=== PATIENT | female | born 1935 | race Caucasian/White ===

== ENCOUNTER 2021-01-15 22:20 | Emergency (ER) | payer MEDICARE, SELFPAY ==
[2021-01-15] VITALS (10 sets, daily range): BP systolic 133–154; BP diastolic 57–67; PULSE 80–94; RESP 13–22; TEMP 36.2; O2SAT 96–100
--- NOTE | ~2021-01-15 | CT_ITS ---
EXAMINATION: CT chest abdomen pelvis w con DATE: 01/16/2021 00:23 INDICATION: Epigastric abdominal pain TECHNIQUE: Transaxial computed tomographic images of the chest, abdomen, and pelvis were obtained aft er the administration of 100 cc of Omnipaque 350 intravenous contrast. The dose-length product (DLP) was 520.13 mGy-cm. Automated exposure control and iterative reconstruction technique were employed. COMPARISON: None FINDINGS: CHEST CT: There is scarring of the lung apices. Mild dependent atelectasis is noted. There is no pleural effusi on or pneumothorax. There is a large hiatal hernia. The right the heart size is normal. There is calc ified coronary artery atherosclerosis. Thyroid lobe is enlarged compared to the left. ABDOMEN/PELVIS CT: The liver, spleen, pancreas, gallbladder, and adrenal glands are normal. The kidneys are unremarkable . No pathologically enlarged abdominal or pelvic lymph nodes are identified. There is calcified ather osclerosis of the aorta and many of the other arteries. There is no free intraperitoneal gas or evide nce of bowel obstruction. Colonic diverticulosis is present without evidence of diverticulitis. There is severe lumbar spondylosis. IMPRESSION: 1. Large hiatal hernia. Reviewed, dictated and finalized at location A. D ASSEMBLY SUPERVISOR IMPRESSION: 1. Large hiatal hernia.
--- NOTE | ~2021-01-15 | XR_ITS ---
EXAMINATION: XR chest 2V DATE: 01/15/2021 23:02 INDICATION: Epigastric pain TECHNIQUE: AP and lateral views of the chest are obtained. COMPARISON: None available FINDINGS: There is mild atelectasis of the lung bases. A large hiatal hernia is noted. There is no pl eural effusion or pneumothorax. The heart size is normal. There is mild thoracic spondylosis. IMPRESSION: 1. Large hiatal hernia. Reviewed, dictated and finalized at location A. AND SHANK DEPARTMENT SUPERVISOR IMPRESSION: 1. Large hiatal hernia.
--- NOTE | 2021-01-15 22:24 | ECG_ITS ---
Measurements Intervals Elmer Rate: 80 P: 46 WI: 128 QRS: 12 QRSD: 101 T: 27 QT: 375 QTc: 433 Interpretive Statements SINUS RHYTHM BASELINE ARTIFACT- I, II, III, AVR, AVL, AVF NORMAL ECG Electronically Signed On 01-16-2021 6:53:36 PERFECT BINDER SETTER by Jm Archer D.O.
--- NOTE | 2021-01-15 22:54 | ED.GENADULT ---
HPI - General Adult General Chief complaint: Chest Pain Stated complaint: left sided chest pain Time Seen by Provider: 01/15/21 22:28 History of Present Illness HPI narrative: Patient is an 85-year-old female who presents ER with epigastric and chest pain. Began around 9 PM after eating a piece of [employer] pizza. Patient took some Tums without relief. Pain radiates to left shoulder. Makes her feel like she might need to throw up. Pain is worse with palpation of the abdomen and also with deep breath. She is not having any shortness of breath or cough. No lower extremity swelling. She does still have her gallbladder. No previous history of pancreatitis. Related Data Allergies Allergy/AdvReac Type Severity Reaction Status Date / Time codeine Allergy Unknown Unknown Verified 01/15/21 22:30 Penicillins Allergy Unknown RASH Verified 01/15/21 22:30 Sulfa (Sulfonamide Allergy Unknown Unknown Verified 01/15/21 22:30 Antibiotics) Review of Systems Review of Systems: All systems reviewed & are unremarkable except as noted in HPI and below Constitutional: Constitutional: Denies chills, Denies fever(s) and Denies weakness ENT: Denies nasal congestion and Denies sore throat Cardiovascular: Cardiovascular: Reports chest pain, Denies rapid heart rate and Reports radiating jaw, neck or arm pain Respiratory: Respiratory: Denies cough, Denies dyspnea and Denies wheezing Comments: Pain with deep breath Gastrointestinal: Gastrointestinal: Reports abdominal pain, Denies diarrhea, Reports nausea and Denies vomiting Genitourinary: Genitourinary: Reports nocturia and Reports dysuria (First episode of burning urination today.) PMF Past Medical History Medical History (Updated 01/16/21 @ 02:34 by Dale Bolden MD) Hypertension Hypothyroidism Spinal stenosis Surgical History Surgical History (Updated 01/16/21 @ 02:32 by Dale Bolden MD) History of appendectomy History of tubal ligation Social History Social History (Updated 01/16/21 @ 02:32 by Dale Bolden MD) Smoking status: Never smoker Gender identity (if verbalized by the patient): Female Exam Narrative: Exam Narrative: GENERAL: Well-appearing, well-nourished, and in no acute distress. HEAD: Normocephalic, atraumatic. ENT: Mucous membranes moist CHEST: Clear to auscultation. No respiratory distress. HEART: Regular rate and rhythm. Normal peripheral pulses. ABDOMEN: Soft, moderate epigastric tenderness without guarding, nondistended, normal active bowel sounds. EXTREMITIES: Normal range of motion. No edema. SKIN: Warm, dry, no rash. NEURO: Alert and oriented x3. Course Course Emergency Course: Patient informed results. Epigastric and chest pain felt to be related to symptomatic hiatal hernia. Troponin negative x2. Patient given cephalexin for her UTI. Patient feels well. Discharge home. Vital Signs Vital signs: Vital Signs Temperature 97.2 F L 01/15/21 22:24 Pulse Rate 85 01/15/21 22:24 Respiratory Rate 17 01/15/21 22:24 Blood Pressure 133/67 01/15/21 22:24 Pulse Oximetry 99 01/15/21 22:24 Temperature 97.2 F L 01/15/21 22:24 Pulse Rate 93 01/16/21 01:18 Respiratory Rate 19 01/16/21 01:18 Blood Pressure 124/53 L 01/16/21 01:18 Pulse Oximetry 98 01/16/21 01:18 Medical Decision Making Vital Signs Vital Signs: Vital Signs Temperature 97.2 F L 01/15/21 22:24 Pulse Rate 85 01/15/21 22:24 Respiratory Rate 17 01/15/21 22:24 Blood Pressure 133/67 01/15/21 22:24 Pulse Oximetry 99 01/15/21 22:24 Temperature 97.2 F L 01/15/21 22:24 Pulse Rate 93 01/16/21 01:18 Respiratory Rate 19 01/16/21 01:18 Blood Pressure 124/53 L 01/16/21 01:18 Pulse Oximetry 98 01/16/21 01:18 Lab Data Result diagrams: 01/15/21 22:51 01/15/21 22:51 Labs: Lab Results 01/15/21 01/15/21 01/15/21 Range/Units 22:51 22:51 22:51 WBC 9.4 (4.5-10.0
[2021-01-15 22:57] LABS: Basophils Absolute Auto 0.1 K/mm3 (0.0-0.1); Basophils Percent Auto 1.2 % (0.2-1.2); Eosinophils Absolute Auto 0.6 K/mm3 (0-0.3); Eosinophils Percent Auto 6.5 % (0-4.4); Hematocrit 37.4 % (37.0-47.0); Hemoglobin 12.6 g/dL (12.0-15.0); Immature Granulocyte Absolute 0.06 K/mm3 (0.00-0.031); Immature Granulocyte Percent A 0.6 % (0-0.5); Lymphocytes Absolute Auto 2.45 K/mm3 (0.9-3.2); Lymphocytes Percent Auto 26.1 % (18.3-44.2); Mean Corpuscular HGB Conc 33.7 g/dl (32-36); Mean Corpuscular Hemoglobin 30.1 pg (26-34); Mean Corpuscular Volume 89.3 fl (80-100); Mean Platelet Volume 8.6 fl (7.4-10.4); Monocytes Absolute Auto 0.8 K/mm3 (0.1-0.6); Monocytes Percent Auto 8.9 % (2.6-8.5); Neutrophils Absolute Auto 5.3 K/mm3 (1.3-6.7); Neutrophils Percent Auto 56.7 % (45.5-73.1); Platelet Count Result 340 k/mm3 (150-375); Red Blood Count 4.19 M/mm3 (4.2-5.4); Red Cell Distribution Width 14.8 % (11.5-14.5); White Blood Count 9.4 K/mm3 (4.5-10.0)
--- NOTE | 2021-01-15 23:00 | PC.NURSE ---
Assumed care of pt. Report from NOEL Quesada
[2021-01-15 23:06] LABS: INR 0.9; Prothrombin Time 12.8 Seconds (11.1-14.7)
[2021-01-15 23:07] LABS: Partial Thromboplastin Time 28.1 SECONDS (22.3-36.8)
[2021-01-15 23:09] LABS: Anion Gap 6 mmol/L (8-16); Blood Urea Nitrogen 18 mg/dL (7-17); Carbon Dioxide 29 mmol/L (22-30); Chloride 98 mmol/L (98-107); Estimated CRCL calculation 34 ml/min; Estimated Glomerular Filt Rate 60; Glucose 120 mg/dL (65-105); Sodium 133 mmol/L (137-145)
[2021-01-15 23:10] LABS: Alanine Aminotransferase 14 U/L (4-35); Alkaline Phosphatase 86 U/L (38-126); Aspartate Amino Transferase 26 U/L (14-36); Bilirubin,Total 0.3 mg/dL (0.2-1.3); Lipase 275 U/L (23-300)
[2021-01-15 23:20] LABS: Troponin I < 0.012 ng/mL (0.000-0.034)
[2021-01-15] MEDS: SODIUM CHLORIDE 0.9% IV 1,000 ML 999 ML IV CONT (23:26)
[2021-01-16 00:08] LABS: Add Urine Microscopic? YES; Appearance Urine Clear (Clear); Bacteria Urine Trace /hpf; Bilirubin Urine Negative (Negative); Blood Urine Negative (Negative); Color Urine Straw (Yellow); Glucose Urine UA Negative (Negative); Ketones Urine Negative (Negative); Leukocyte Esterase Ur 3+ LEU/UL (Negative); Nitrate Urine Negative (Negative); Protein Urine Negative (Negative); Specific Grav Ur 1.009 (1.001-1.035); Squamous Epithelial Cell Urine Rare /hpf (Few); Urobilinogen Urine Negative mg/dL (<2.0); WBC Urine 21-30 /hpf
--- NOTE | 2021-01-16 00:15 | PC.NURSE ---
Pt. to CT
[2021-01-16 00:54] VITALS: BP 129/87; PULSE 89; RESP 16; O2SAT 97
[2021-01-16 01:18] VITALS: BP 124/53; PULSE 93; RESP 19; O2SAT 98
[2021-01-16 01:27] VITALS: PULSE 87; RESP 18; O2SAT 97
[2021-01-16 01:35] VITALS: PULSE 91; RESP 20; O2SAT 97
[2021-01-16 01:46] VITALS: BP 134/74; PULSE 86; RESP 19; O2SAT 99
[2021-01-16 02:14] LABS: Troponin I < 0.012 ng/mL (0.000-0.034)
[2021-01-16 02:15] VITALS: PULSE 93; RESP 17; O2SAT 97
[2021-01-16] MEDS: CEPHALEXIN 500 MG CAPSULE PO (02:43)
== END 2021-01-16 02:40 | disposition home or self-care (01) ==
PROVIDERS: Emergency Provider Emergency Medicine; PCP Internal Medicine
DX: K44.9 Diaphragmatic hernia without obstruction or gangrene (principal); N39.0 Urinary tract infection, site not specified; I10 Essential (primary) hypertension; E03.9 Hypothyroidism, unspecified
CPT/HCPCS: 36415; 71046; 71260; 74177; 80048; 80076; 81001; 83690; 84484; 85025; 85610; 85730; 87086; 87088; 93005; 96361; 96374; 99284; A9270; J0131; J7030; Q9967

== ENCOUNTER 2021-01-27 13:13 | Outpatient (CLI) | payer MEDICARE, SELFPAY | END 2021-01-27 13:14 | disposition home or self-care (01) | LOC: ANHCOVIDVC 13:13 | PROVIDERS: PCP Internal Medicine | DX: Z23 Encounter for immunization (principal) | CPT/HCPCS: 0001A; 91300 ==

== ENCOUNTER 2021-02-17 13:09 | Outpatient (CLI) | payer MEDICARE, SELFPAY | END 2021-02-17 13:10 | disposition home or self-care (01) | LOC: ANHCOVIDVC 13:09 | PROVIDERS: PCP Internal Medicine | DX: Z23 Encounter for immunization (principal) | CPT/HCPCS: 0002A; 91300 ==

== ENCOUNTER 2023-02-19 13:54 | Inpatient (IN) | payer MEDICARE, SELFPAY ==
[2023-02-19] VITALS (9 sets, daily range): BP systolic 136–160; BP diastolic 60–76; PULSE 79–97; RESP 16–29; TEMP 35.9–36.4; O2SAT 95–100; BMI 18.8
--- NOTE | ~2023-02-19 | US_ITS ---
US abdomen limited INDICATION: Epigastric pain PROCEDURE: Realtime right upper abdominal ultrasound. COMPARISON: No prior studies for comparison. FINDINGS: X-ray is not visualized due to bowel gas. Liver echotexture is normal without focal mass o r intrahepatic biliary dilatation. There is normal directional flow in the portal vein. The gallbladder is normal without stones, gallbladder wall thickening or pericholecystic fluid. Comm on bile duct measures 2 mm. No sonographic Powers's sign. IMPRESSION: 1: Normal limited abdominal ultrasound. Reviewed, dictated and finalized at location B.
--- NOTE | ~2023-02-19 | CT_ITS ---
EXAMINATION: CT abdomen pelvis w con DATE: 02/19/2023 15:46 INDICATION: Abdomen pain TECHNIQUE: Computed tomography (CT) of the abdomen and pelvis was performed with 100 cc Omnipaque 350 intravenous contrast. The dose-length product was 174.61 mGy-cm. Automated exposure control and iter ative reconstruction technique were employed. COMPARISON: CT dated 01/16/2021. FINDINGS: Heart size normal. No significant pleural or pericardial effusion. Large hiatal hernia. No significant vascular abnormality. No lymphadenopathy. Nonobstructive bowel pattern. No free air or free fluid. Gallbladder is present. There are low-densit y lesions in both kidneys, most likely benign cysts. Fatty infiltration of the liver. The pancreas, a drenal glands and spleen are unremarkable. Moderate colonic fecal loading. No abnormal pelvic masses or fluid collections. Severe lumbar spondylosis with degenerative retrolisthesis at L1-2 and L2 throu gh with anterolisthesis at L4-5 and L5-S1. IMPRESSION: 1. No acute abdominal abnormality. 2: Large hiatal hernia. Reviewed, dictated and finalized at location L.
[2023-02-19 14:31] LABS: Basophils Percent Auto 0.2 % (0.2-1.2); Hematocrit 42.1 % (37.0-47.0); Hemoglobin 14.4 g/dL (12.0-15.0); Immature Granulocyte Absolute 0.07 K/mm3 (0.00-0.031); Immature Granulocyte Percent A 0.5 % (0-0.5); Lymphocytes Absolute Auto 0.58 K/mm3 (0.9-3.2); Lymphocytes Percent Auto 3.8 % (18.3-44.2); Mean Corpuscular HGB Conc 34.2 g/dl (32-36); Mean Corpuscular Hemoglobin 30.6 pg (26-34); Mean Corpuscular Volume 89.4 fl (80-100); Mean Platelet Volume 8.5 fl (7.4-10.4); Monocytes Absolute Auto 0.9 K/mm3 (0.1-0.6); Monocytes Percent Auto 5.7 % (2.6-8.5); Neutrophils Absolute Auto 13.7 K/mm3 (1.3-6.7); Neutrophils Percent Auto 89.8 % (45.5-73.1); Platelet Count Result 450 k/mm3 (150-375); Red Blood Count 4.71 M/mm3 (4.2-5.4); Red Cell Distribution Width 13.7 % (11.5-14.5); White Blood Count 15.2 K/mm3 (4.5-10.0)
[2023-02-19 14:50] LABS: Alanine Aminotransferase 24 U/L (6-35); Albumin Level 4.8 g/dL (3.5-5.1); Alkaline Phosphatase 87 U/L (38-126); Anion Gap 9 mmol/L (8-16); Aspartate Amino Transferase 34 U/L (14-36); Bilirubin,Total 0.7 mg/dL (0.2-1.3); Blood Urea Nitrogen 13 mg/dL (7-17); Calcium 11.8 mg/dL (8.4-10.2); Carbon Dioxide 34 mmol/L (22-30); Chloride 88 mmol/L (98-107); Estimated CRCL calculation 29 ml/min; Estimated Glomerular Filt Rate 59; Glucose 169 mg/dL (65-110); Lipase 485 U/L (23-300); Potassium 3.6 mmol/L (3.4-5.0); Sodium 131 mmol/L (137-145)
[2023-02-19] MEDS: SODIUM CHLORIDE 0.9% IV 1,000 ML 999 ML IV CONT (15:33)
[2023-02-19] MEDS: ONDANSETRON INJ 4 MG/2 ML VIAL IV PUSH (15:33)
[2023-02-19] MEDS: FAMOTIDINE 20 MG/2 ML VIAL IV PUSH (15:34)
[2023-02-19 15:38] LABS: Appearance Urine Cloudy (Clear); Bacteria Urine Rare /hpf; Bilirubin Urine Negative (Negative); Blood Urine Negative (Negative); Color Urine Yellow (Yellow); Glucose Urine UA Negative (Negative); Ketones Urine Negative (Negative); Leukocyte Esterase Ur 2+ LEU/UL (Negative); Nitrate Urine Negative (Negative); Non Pathogenic Casts 0-2; Protein Urine 1+ mg/dL (Negative); RBC Urine 0-2 /hpf (0-2); Specific Grav Ur 1.009 (1.001-1.035); Squamous Epithelial Cell Urine None seen /hpf (Few); Urobilinogen Urine 0.2 mg/dL (<2.0); WBC Urine 21-50 /hpf; pH Urine 7.5 (5.0-9.0)
[2023-02-19 15:41] LABS: Add Urine Microscopic? YES
--- NOTE | 2023-02-19 16:18 | ED.GENADULT ---
HPI - General Adult General Chief complaint: Nausea/Vomiting/Diarrhea Stated complaint: N/V Time Seen by Provider: 02/19/23 15:22 Source: RN notes reviewed History of Present Illness HPI narrative: Patient presents emergency department from home for nausea vomiting. Patient states symptoms been ongoing since last night. States she is having recurrent episodes of emesis and unable to keep anything down. States been associate with abdominal pain across the mid abdomen described as cramping in nature. She denies any fevers or chills denies any chest pain shortness of breath. States she has not had any diarrhea. States that she did not take any for the symptoms at home. Patient does state she has a history of a hiatal hernia and is followed by Dr. Hartmann in [place] for this. Related Data Home Medications Medication Instructions Recorded Confirmed amlodipine 10 mg tablet mg 02/19/23 diclofenac sodium 75 mg mg PO 02/19/23 tablet,delayed release ergocalciferol (vitamin D2) 1,250 02/19/23 mcg (50,000 unit) capsule spironolactone 50 mg tablet mg 02/19/23 Allergies Allergy/AdvReac Type Severity Reaction Status Date / Time codeine Allergy Unknown Unknown Verified 02/19/23 15:28 Penicillins Allergy Unknown RASH Verified 02/19/23 15:28 Sulfa (Sulfonamide Allergy Unknown Unknown Verified 02/19/23 15:28 Antibiotics) Review of Systems Review of Systems: Gen.: Denies fevers or chills ENT: Denies congestion Respiratory: Denies shortness of breath or cough CV: Denies chest pain or palpitations GI: See HPI Musculoskeletal: Denies back pain or muscle pain Neuro: Denies numbness, tingling, weakness or focal weakness Skin: Denies rash Except as documented, all other systems reviewed and negative [facility] Past Medical History Medical History Hypertension Hypothyroidism Spinal stenosis Surgical History Surgical History (Updated 01/16/21 @ 02:32 by Dale Bolden MD) History of appendectomy History of tubal ligation Social History Social History Smoking status: Never smoker Gender identity (if verbalized by the patient): Female Exam Narrative: APPEARANCE: No acute distress, nontoxic, resting in bed HEENT: Normocephalic, atraumatic, OMM RESPIRATORY: No respiratory distress, clear to auscultation bilaterally with no rhonchi wheezing or rales CARDIOVASCULAR: RRR s murmur ABDOMINAL: Soft nondistended diffusely tender to palpation no rebound or guarding MUSCULOSKELETAl: Moves all extremities. No clubbing, cyanosis or edema. NEURO: Awake and alert. Following commands, speech normal, no focal deficits SKIN:: Warm, dry. Normal Color PSYCHIATRIC: Normal affect/mood Course Course Emergency Course: Called and discussed with TRINA Benavides for Dr. Ortega for hospitalist service presentation work-up agrees with admission Discussed with patient and family results of workup and diagnosis. Discussed need for admission. Patient and family understand and agree to current treatment plan Vital Signs Vital signs: Vital Signs Temperature 97.6 F 02/19/23 14:10 Pulse Rate 93 02/19/23 14:10 Respiratory Rate 17 02/19/23 14:10 Blood Pressure 157/76 H 02/19/23 14:10 Pulse Oximetry 98 02/19/23 14:10 Oxygen Delivery Room Air 02/19/23 14:10 Temperature 97.6 F 02/19/23 14:10 Pulse Rate 82 02/19/23 15:30 Respiratory Rate 21 H 02/19/23 15:30 Blood Pressure 144/61 H 02/19/23 16:01 Pulse Oximetry 98 02/19/23 16:02 Oxygen Delivery Room Air 02/19/23 14:10 Medical Decision Making MDM Narrative Medical decision making narrative: Patient presents emergency department from home for nausea and vomiting. Patient with history of hiatal hernia noted to have a white count of 15.2 signs of dehydration on lab results lipase minimally elevated his CT scan shows hiatal hernia with no
[2023-02-19 17:00] LABS: Lactic Acid Reflex 2.7 mmol/L (0.7-2.0)
--- NOTE | 2023-02-19 17:13 | PM.IMHP ---
H&P: HPI History of Present Illness Date/Time: 02/19/23 17:13 Chief Complaint: Nausea vomiting diarrhea Narrative: This is an 87-year-old female patient who came to the emergency room from home with complaints of nausea and vomiting. The patient's symptoms have been ongoing since last night. She had a recurrent episode of emesis and was unable to keep anything down. The patient does have a history of having al large hiatal hernia. Patient has had and some abdominal cramping pain. The patient no longer has the nausea vomiting or diarrhea. Her white count was found to be 15.2. Neutrophil percentage 89.8. Sodium is 131. Blood sugars 169. Her calcium is 11.8 but she appears to be dehydrated. Lipase is 485. Urine was positive 2+ leukocyte esterase. Urine white count is 21-50. The patient is complaining of a headache. The patient was given Pepcid IV, IV fluids, Zofran and Rocephin in the emergency room. Her lactic initially was 2.7. Her blood glucose is 169. The patient is being admitted to observation status on the date of service of 02/19/2023. Review of Systems Review of Systems: All systems reviewed & are unremarkable except as noted in HPI and below Constitutional: Constitutional: Reports as per HPI and Reports no additional constitutional complaints Eyes: Eyes: Reports as per HPI and Reports no additional eye complaints ENT: Reports system reviewed and no additional complaints, except as documented and Reports Normal hearing present Cardiovascular: Cardiovascular: Reports no additional cardiovascular complaints Respiratory: Respiratory: Reports no additional respiratory complaints and Reports no additional respiratory complaints Gastrointestinal: Gastrointestinal: Reports as per HPI and Reports no additional gastrointestinal complaints Musculoskeletal: Musculoskeletal: Reports no additional musculoskeletal complaints Integumentary/Breasts: Skin/Breast: Reports system reviewed and no additional complaints, except as docu and Reports as per HPI Neurologic: Reports system reviewed and no additional complaints, except as documented, Reports as per HPI and Reports Normal hearing present Psychiatric: Psychiatric: Reports no additional psychiatric complaints and Reports as per HPI Endocrine: Endocrine: Reports no additional endocrine complaints Hematologic/Lymphatic: Hematologic/Lymphatic: Reports no additional hematologic/lymphatic complaints Allergic/Immunologic: Allergic/Immunologic: Reports no additional allergic/immunologic complaints [facility] Past Medical History Medical History (Updated 02/19/23 @ 20:23 by Makayla Plummer NP) Hiatal hernia Hypertension Hypothyroidism Spinal stenosis Surgical History Surgical History H/O breast biopsy History of tubal ligation Family History Family History Mother Cancer of kidney Father Cancer of kidney Social History 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 Smoking status: Never smoker Alcohol intake: never Substance use: never Lack of Transportation: No Lack of Food: Never True Current Housing: I Have Housing Concerned About Future Housing: No Difficulty Paying Gas/Electric Bills: No Difficulty Paying for Meds: No Currently Unemployed: No Education: High School Diploma/GED Difficulty w/ Childcare or Family Care: No Gender identity (if verbalized by the patient): Female Spiritual care concerns: No Meds Home Medications and Allergies Home Medications Medication Instructions Recorded Confirmed Type amlodipine 10 mg tablet 10 mg PO DAILY 02/19/23 02/19/23 History diclofenac sodium 75 mg 75 mg PO DAILY 02/19/23 02/19/23 History tablet,delayed release ergocalciferol (vitamin D2) 1,25
--- NOTE | 2023-02-19 18:57 | ADMGEN ---
This patient, Orquidea Degroot, was admitted to [facility] Room 320-01. Patient/family oriented to hospital policies and general routines including ID bracelet, bed and alarms, visiting hours, pain management, procedures, bathroom and other care routines, personal items, smoking policy, room service/diet, and visiting hours. Information on how to activate the Rapid Response Team has been discussed. Patient/Family are encouraged to report perceived risks to care and to ask questions if they do not understand what they are told or what they should do.
[2023-02-19 19:42] LABS: Reflex Lactic Acid Yes or No Add Lactic
[2023-02-19] MEDS: SODIUM CHLORIDE 0.9% IV 1,000 ML 80 ML IV CONT (20:01)
[2023-02-19] MEDS: ACETAMINOPHEN 325 MG TABLET 650 MG PO (20:03)
[2023-02-19 20:19] LABS: Lactic Acid 1.5 mmol/L (0.7-2.0)
[2023-02-20] MEDS: ACETAMINOPHEN 325 MG TABLET 650 MG PO (05:10)
[2023-02-20 05:58] VITALS: BP 139/65; PULSE 81; RESP 16; TEMP 36; O2SAT 99
[2023-02-20 06:36] LABS: Basophils Absolute Auto 0.1 K/mm3 (0.0-0.1); Basophils Percent Auto 0.4 % (0.2-1.2); Eosinophils Percent Auto 0.1 % (0-4.4); Hematocrit 40.1 % (37.0-47.0); Hemoglobin 13.6 g/dL (12.0-15.0); Immature Granulocyte Absolute 0.08 K/mm3 (0.00-0.031); Immature Granulocyte Percent A 0.7 % (0-0.5); Lymphocytes Absolute Auto 0.83 K/mm3 (0.9-3.2); Lymphocytes Percent Auto 6.8 % (18.3-44.2); Mean Corpuscular HGB Conc 33.9 g/dl (32-36); Mean Corpuscular Hemoglobin 30.6 pg (26-34); Mean Corpuscular Volume 90.3 fl (80-100); Mean Platelet Volume 8.5 fl (7.4-10.4); Monocytes Absolute Auto 1.1 K/mm3 (0.1-0.6); Monocytes Percent Auto 9.1 % (2.6-8.5); Neutrophils Absolute Auto 10.1 K/mm3 (1.3-6.7); Neutrophils Percent Auto 82.9 % (45.5-73.1); Platelet Count Result 364 k/mm3 (150-375); Red Blood Count 4.44 M/mm3 (4.2-5.4); Red Cell Distribution Width 13.9 % (11.5-14.5); White Blood Count 12.2 K/mm3 (4.5-10.0)
[2023-02-20 06:51] LABS: Alanine Aminotransferase 21 U/L (6-35); Albumin Level 4.2 g/dL (3.5-5.1); Alkaline Phosphatase 80 U/L (38-126); Anion Gap 6 mmol/L (8-16); Aspartate Amino Transferase 32 U/L (14-36); Bilirubin,Total 0.8 mg/dL (0.2-1.3); Blood Urea Nitrogen 11 mg/dL (7-17); Calcium 9.4 mg/dL (8.4-10.2); Carbon Dioxide 33 mmol/L (22-30); Chloride 93 mmol/L (98-107); Estimated CRCL calculation 31 ml/min; Estimated Glomerular Filt Rate > 60; Glucose 107 mg/dL (65-110); Lipase 419 U/L (23-300); Potassium 3.1 mmol/L (3.4-5.0); Sodium 132 mmol/L (137-145)
[2023-02-20] MEDS: amLODIPine BESYLATE 5 MG TABLET 10 MG PO (08:55)
[2023-02-20] MEDS: SODIUM CHLORIDE 0.9% IV 1,000 ML 80 ML IV CONT (08:55)
[2023-02-20] MEDS: DICLOFENAC SOD 75 MG TABLET.EC PO (08:55)
[2023-02-20] MEDS: PANTOPRAZOLE SODIUM IV 40 MG VIAL IV PUSH (08:55)
[2023-02-20] MEDS: POTASSIUM CHLORIDE 20 MEQ TABLET 40 MEQ PO (09:10)
[2023-02-20] MEDS: POTASSIUM CHLORIDE INJ 40 MEQ in SODIUM CHLORIDE 0.9% IV 500 ML 130 MEQ IVPB (10:18)
--- NOTE | 2023-02-20 11:15 | PM.IMPN ---
Progress Note: A&P Assessment and Plan (1) Hiatal hernia: Code(s): K44.9 - Diaphragmatic hernia without obstruction or gangrene Status: Acute Assessment and Plan: Known history of a large hernia Continue IV fluids Add famotidine and continue protonix Continue IV fluids Antiemetics on board RUQ ultrasound ordered to ensure that there is no gallbladder envolvement (2) Acute UTI: Code(s): N39.0 - Urinary tract infection, site not specified Status: Acute Assessment and Plan: UA appeared infectious Continue with Rocephin Blood and urine cultures are pending Tailor antibiotics according to culture and sensitivities Mild leukocytosis with white count being 15.2, resolved Lactic acid was 2.7 and she was given IV fluids is now 1.5. Discontinue IV fluids since she is drinking better (3) Hypertension: Code(s): I10 - Essential (primary) hypertension Status: Acute Assessment and Plan: Continue with amlodipine Hold off on spironolactone for now Trend BP Adjust therapy as indicated Current BP is 139/65 (4) Hypothyroidism: Code(s): E03.9 - Hypothyroidism, unspecified Status: Acute Assessment and Plan: Thyroid level in the am Continue home levothyroxine Plan Abdominal pain Reports starts epigastric and RUQ with radiation to the shoulder blade and back Trend pain Pain medications on board RUQ ultrasound pending Time Spent With Patient Time: 53 minutes, 28 minutes with daughter and patient regarding discussion of care Time with patient: Greater than 35 minutes Subjective Date/time seen: 02/20/231114 Interval history: 02/20/231114 Patient stated that she was feeling a lot better. She did state that she was able to eat her clear liquids today and had no issues with nausea vomiting. She also stated that she feels a lot better than what she did when she came in. She states that it starts in the right upper quadrant epigastric area. She stated normally when this happened she sits up in a chair upright and does usually dissipated. This time it was really bad as she was having nausea along with diarrhea. She stated that the pain starts in her right upper quadrant and epigastric area and then radiates to her left shoulder blade into her neck. She did have chicken tenders with honey mustard and pizza for her last meal. Daughter was also present we did talk about current plan of care and further care plan. Will advance patient's diet and given right upper quadrant ultrasound to further evaluate for possible gallbladder disease. 02/19/23? 17:13 This is an 87-year-old female patient who came to the emergency room from home with complaints of nausea and vomiting.? The patient's symptoms have been ongoing since last night.? She had a recurrent episode of emesis and was unable to keep anything down.? The patient does have a history of having al large hiatal hernia.? Patient has had and some abdominal cramping pain.? The patient no longer has the nausea vomiting or diarrhea.? Her white count was found to be 15.2.? Neutrophil percentage 89.8.? Sodium is 131.? Blood sugars 169.? Her calcium is 11.8 but she appears to be dehydrated.? Lipase is 485.? Urine was positive 2+ leukocyte esterase.? Urine white count is 21-50.? The patient is complaining of a headache.? The patient was given Pepcid IV, IV fluids, Zofran and Rocephin in the emergency room.? Her lactic initially was 2.7.? Her blood glucose is 169.? The patient is being admitted to observation status on the date of service of 02/19/2023. Review of Systems Review of Systems: All systems reviewed & are unremarkable except as noted in HPI and below Exam Narrative: General: well-nourished, well-appearing 87-year-old female, laying in bed, comfortable, NARD Neuro: awake, alert and oriented x4, speech clear,
[2023-02-20 14:00] VITALS: BP 139/69; PULSE 84; RESP 18; TEMP 36; O2SAT 96
[2023-02-20 22:43] VITALS: BP 171/78; PULSE 95; RESP 16; TEMP 36.3; O2SAT 96
[2023-02-21 02:09] VITALS: BP 135/74; PULSE 84; RESP 16; O2SAT 92
[2023-02-21 05:48] VITALS: BP 158/80; PULSE 92; RESP 16; TEMP 36.3; O2SAT 97
[2023-02-21 07:51] LABS: Basophils Absolute Auto 0.1 K/mm3 (0.0-0.1); Basophils Percent Auto 1.4 % (0.2-1.2); Eosinophils Absolute Auto 0.2 K/mm3 (0-0.3); Eosinophils Percent Auto 2.2 % (0-4.4); Hematocrit 41.7 % (37.0-47.0); Immature Granulocyte Absolute 0.06 K/mm3 (0.00-0.031); Immature Granulocyte Percent A 0.7 % (0-0.5); Lymphocytes Absolute Auto 1.87 K/mm3 (0.9-3.2); Lymphocytes Percent Auto 21.2 % (18.3-44.2); Mean Corpuscular HGB Conc 33.6 g/dl (32-36); Mean Corpuscular Hemoglobin 31.3 pg (26-34); Mean Corpuscular Volume 93.1 fl (80-100); Mean Platelet Volume 8.8 fl (7.4-10.4); Monocytes Percent Auto 11.2 % (2.6-8.5); Neutrophils Absolute Auto 5.6 K/mm3 (1.3-6.7); Neutrophils Percent Auto 63.3 % (45.5-73.1); Platelet Count Result 378 k/mm3 (150-375); Red Blood Count 4.48 M/mm3 (4.2-5.4); Red Cell Distribution Width 13.8 % (11.5-14.5); White Blood Count 8.8 K/mm3 (4.5-10.0)
[2023-02-21 08:12] LABS: Alanine Aminotransferase 21 U/L (6-35); Albumin Level 4.1 g/dL (3.5-5.1); Alkaline Phosphatase 77 U/L (38-126); Anion Gap 5 mmol/L (8-16); Aspartate Amino Transferase 33 U/L (14-36); Bilirubin,Total 0.7 mg/dL (0.2-1.3); Blood Urea Nitrogen 10 mg/dL (7-17); Calcium 9.1 mg/dL (8.4-10.2); Carbon Dioxide 32 mmol/L (22-30); Chloride 98 mmol/L (98-107); Estimated CRCL calculation 36 ml/min; Estimated Glomerular Filt Rate > 60; Glucose 92 mg/dL (65-110); Magnesium 1.6 mg/dL (1.6-2.3); Potassium 3.5 mmol/L (3.4-5.0); Sodium 135 mmol/L (137-145)
[2023-02-21] MEDS: amLODIPine BESYLATE 5 MG TABLET 10 MG PO (08:24)
[2023-02-21] MEDS: DICLOFENAC SOD 75 MG TABLET.EC PO (08:24)
[2023-02-21] MEDS: PANTOPRAZOLE SODIUM IV 40 MG VIAL IV PUSH (08:24)
[2023-02-21 10:51] LABS: Lipase 306 U/L (23-300)
--- NOTE | 2023-02-21 12:00 | PM.DS ---
DS: Admitting Diagnosis Discharge Date 02/21/23 1200 Admitting Diagnosis complications of a hiatal hernia, UTI DS: Discharge Diagnosis Discharge Diagnosis (1) Hiatal hernia: Code(s): K44.9 - Diaphragmatic hernia without obstruction or gangrene Status: Acute Assessment and Plan: Known history of a large hernia Continue IV fluids Add famotidine and continue protonix Continue IV fluids Antiemetics on board RUQ ultrasound ordered to ensure that there is no gallbladder envolvement (2) Acute UTI: Code(s): N39.0 - Urinary tract infection, site not specified Status: Acute Assessment and Plan: UA appeared infectious Continue with Rocephin, change to cefdinir PO for a total of 5 days Blood cultures show NGTD urine cultures appear to be contamination Tailor antibiotics according to culture and sensitivities Mild leukocytosis with white count being 15.2, resolved Lactic acid was 2.7 and she was given IV fluids is now 1.5. Discontinue IV fluids since she is drinking better (3) Hypertension: Code(s): I10 - Essential (primary) hypertension Status: Acute Assessment and Plan: Continue with amlodipine Hold off on spironolactone for now Trend BP Adjust therapy as indicated Current BP is 158/80 (4) Hypothyroidism: Code(s): E03.9 - Hypothyroidism, unspecified Status: Acute Assessment and Plan: Thyroid level in the am Continue home levothyroxine Plan Abdominal pain Reports starts epigastric and RUQ with radiation to the shoulder blade and back Trend pain Pain medications on board RUQ ultrasound normal gallbladder DS: Summary Hospital Course Hospital Course: patient is a a an 87-year-old female with a past medical history of chronic hiatal hernia, hypertension, hypothyroidism who presented to the ED with complaints of nausea vomiting. Patient stated that she has these symptoms every once in a while and usually controls them without being treated however symptoms began to get worse. she was not finding any relief from any normal intervention said she does on her own. She decided to come to the hospital where it was noted that the patient did have a large hiatal hernia. Patient was placed NPO and then to clear liquids with IV fluids for rehydration. Lipase was slightly elevated at 45. WBCs noted to be elevated at 15.2 and lactic acid elevated 2.7. Urine culture was obtained however appeared to be a contaminant. UA did appear infectious and patient has been complaining of frequency. Will treat patient with cefdinir since she has received 3 doses of IV ceftriaxone. Currently patient is stable for discharge for labs and vital signs. Patient does wish to be discharged as she is feeling a lot better. All labs and vital signs have been updated with the patient and her daughter. All questions have been answered. Status at Discharge Functional status at discharge: independent ambulation Overall status at discharge: patient is progressing back to baseline Time Spent with Patient Time attestation: Total time spent providing and/or coordinating discharge services: 48 minutes Time spent: Greater than 30 minutes Specific discharge activities: Diagnostic testing, chart review, developing a treatment plan, education, care coordination documentation, physical exam, result review Exam Narrative: General: well-nourished, well-appearing 87-year-old female, laying in bed, comfortable, NARD Neuro: awake, alert and oriented x4, speech clear, no focal neuro deficits noted HEENMT: normocephalic, atraumatic, EOMI, sclerae anicteric, moist oral mucosa Respiratory: Clear to auscultation bilaterally without crackles, rhonchi or wheezes, nonlabored breathing Cardio: regular rate, regular rhythm with S1-S2 Abdomen: nondistended, normoactive bowel sounds, soft, nontender to p
[2023-02-21 14:00] VITALS: BP 135/72; PULSE 87; RESP 20; TEMP 36.4; O2SAT 96
[2023-02-21] MEDS: MAGNESIUM SULF 2 GM/WATER 50ML 2 GM/50 ML BAG IVPB (14:06)
--- NOTE | 2023-02-21 16:12 | PC.NURSE ---
Pt is A&O female who discharged home with daughter today. Pt reports no pain, no nausea, and no vomiting. Pt has been monitored for any changes in status while here. Pt reports that she is very happy with the care she has received and that she can tell that we put effort into taking care of people and not just doing it as a job. Pt has participated and contributed in plan of care. Pt IV was removed prior to discharge.
== END 2023-02-21 16:10 | disposition home or self-care (01) | DRG 392 ==
LOC: ANHED 16:21 → ANH3MEDSUR 17:49
PROVIDERS: Admitting Provider Chiropractor; Emergency Provider Emergency Medicine; PCP Internal Medicine; Visit Provider Nurse Practitioner
DX: K44.9 Diaphragmatic hernia without obstruction or gangrene (principal); I10 Essential (primary) hypertension; E03.9 Hypothyroidism, unspecified; Z88.0 Allergy status to penicillin; Z88.2 Allergy status to sulfonamides; Z88.5 Allergy status to narcotic agent
CPT/HCPCS: 36415; 74177; 76705; 80053; 81001; 83605; 83690; 83735; 85025; 87040; 87086; 87088; 96361; 96365; 96375; 99285; A9270; C9113; G0378; J0696; J2405; J3475; J3480; J7030; J7040; Q9967

== ENCOUNTER 2023-03-20 18:26 | Emergency (ER) | payer MEDICARE, SELFPAY ==
[2023-03-20] VITALS (15 sets, daily range): BP systolic 131–156; BP diastolic 66–80; PULSE 82–90; RESP 17–27; TEMP 36.8; O2SAT 97–100
--- NOTE | ~2023-03-20 | XR_ITS ---
EXAMINATION: XR chest 1V portable Exam Date/Time: 03/20/2023 18:35 CDT HISTORY: CHEST LEFT SHOULDER PAIN Comparison: 01/15/2021. RESULT: Lines, tubes, and devices: None. Lungs and pleura: Diffuse mild reticular opacities. Cardiomediastinal silhouette: Hiatal hernia is now large. Cardiomediastinal silhouette otherwise stab le. Other: No acute osseous or upper abdominal finding. IMPRESSION: Increasing size of the hiatal hernia. Mild reticular opacities may represent mild interstitial edema, versus chronic senescent/interstitial change. Reviewed, dictated and finalized at location K. IMPRESSION: Increasing size of the hiatal hernia. Mild reticular opacities may represent mi ld interstitial edema, versus chronic senescent/interstitial change.
--- NOTE | 2023-03-20 18:34 | ECG_ITS ---
Measurements Intervals [place] Rate: 97 P: 54 [place]: 127 QRS: -11 QRSD: 84 T: 39 QT: 322 QTc: 410 Interpretive Statements SINUS RHYTHM POSSIBLE LEFT ATRIAL ENLARGEMENT DELAYED PRECORDIAL R/S TRANSITION BASELINE ARTIFACT- I, II, AVR, AVL, AVF BORDERLINE ECG COMPARED TO ECG 01/15/2021 22:31:12 NO SIGNIFICANT CHANGES Electronically Signed On 03-20-2023 21:13:19 CDT by Jm Archer D.O.
[2023-03-20 18:49] LABS: Basophils Absolute Auto 0.1 K/mm3 (0.0-0.1); Basophils Percent Auto 0.8 % (0.2-1.2); Eosinophils Absolute Auto 0.3 K/mm3 (0-0.3); Eosinophils Percent Auto 2.7 % (0-4.4); Hematocrit 42.5 % (37.0-47.0); Hemoglobin 14.2 g/dL (12.0-15.0); Immature Granulocyte Absolute 0.07 K/mm3 (0.00-0.031); Immature Granulocyte Percent A 0.7 % (0-0.5); Lymphocytes Absolute Auto 1.74 K/mm3 (0.9-3.2); Lymphocytes Percent Auto 16.2 % (18.3-44.2); Mean Corpuscular HGB Conc 33.4 g/dl (32-36); Mean Corpuscular Hemoglobin 30.9 pg (26-34); Mean Corpuscular Volume 92.6 fl (80-100); Mean Platelet Volume 8.7 fl (7.4-10.4); Monocytes Absolute Auto 0.9 K/mm3 (0.1-0.6); Monocytes Percent Auto 8.3 % (2.6-8.5); Neutrophils Absolute Auto 7.6 K/mm3 (1.3-6.7); Neutrophils Percent Auto 71.3 % (45.5-73.1); Platelet Count Result 412 k/mm3 (150-375); Red Blood Count 4.59 M/mm3 (4.2-5.4); White Blood Count 10.7 K/mm3 (4.5-10.0)
--- NOTE | 2023-03-20 18:49 | ED.CHESTPAIN ---
HPI - Chest Pain General Chief Complaint: Chest Pain Stated Complaint: chest pain/vomiting/pain in left arm Time Seen by Provider: 03/20/23 18:44 History of Present Illness HPI narrative: Patient is an 87-year-old female with a history of hypertension presenting with epigastric pain. Patient's daughter is at bedside and helps with the history. Patient states that she has had a lot of pain related to a hiatal hernia. States that it usually feels better after belching. Her insurers have been making the pain worse. States that sometimes it shoots into her left shoulder. States that sometimes it feels like food gets stuck at the end of her esophagus. States that she has never seen gastroenterology. She denies chest pain or shortness of breath. No leg swelling. No diaphoresis or lightheadedness. States that she feels nauseated and she did have a couple episodes of vomiting yesterday but none today. States that she might have an infection in her bladder. Related Data Home Medications Medication Instructions Recorded Confirmed amlodipine 10 mg tablet 10 mg PO DAILY 02/19/23 02/19/23 diclofenac sodium 75 mg 75 mg PO DAILY 02/19/23 02/19/23 tablet,delayed release ergocalciferol (vitamin D2) 1,250 1,250 mcg PO WEEKLY 02/19/23 02/19/23 mcg (50,000 unit) capsule potassium chloride 10 mEq 10 meq PO DAILY 02/19/23 02/19/23 capsule,extended release spironolactone 50 mg tablet 50 mg PO HS 02/19/23 02/19/23 Allergies Allergy/AdvReac Type Severity Reaction Status Date / Time codeine Allergy Unknown Unknown Verified 02/19/23 15:28 Penicillins Allergy Unknown RASH Verified 02/19/23 15:28 Sulfa (Sulfonamide Allergy Unknown Unknown Verified 02/19/23 15:28 Antibiotics) Review of Systems Review of Systems: All systems reviewed & are unremarkable except as noted in HPI and below PMFSH Past Medical History Medical History Hiatal hernia Hypertension Hypothyroidism Spinal stenosis Surgical History Surgical History H/O breast biopsy History of tubal ligation Family History Family History Mother Cancer of kidney Father Cancer of kidney Social History 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 HEAD: Normocephalic, atraumatic. EYES: PERRLA and EOMI. ENT: Nares clear, no rhinorrhea or epistaxis. Mucous membranes moist. NECK: Supple. CHEST: Clear to auscultation. No respiratory distress. HEART: Regular rate and rhythm. Normal peripheral pulses. ABDOMEN: Soft, mild epigastric and left upper quadrant tenderness without guarding or rebound EXTREMITIES: Normal range of motion. No edema. SKIN: Warm, dry, no rash. NEURO: No focal deficits. Alert and oriented x3. PSYCH: Normal mood and affect. Course Vital Signs Vital signs: Vital Signs Temperature 98.3 F 03/20/23 18:34 Pulse Rate 86 03/20/23 18:34 Respiratory Rate 18 03/20/23 18:34 Blood Pressure 151/80 H 03/20/23 18:34 Pulse Oximetry 100 03/20/23 18:34 Oxygen Delivery Room Air 03/20/23 18:34 Temperature 98.3 F 03/20/23 18:34 Pulse Rate 83 03/20/23 22:25 Respiratory Rat
[2023-03-20 18:58] LABS: Alanine Aminotransferase 27 U/L (6-35); Albumin Level 4.6 g/dL (3.5-5.1); Alkaline Phosphatase 104 U/L (38-126); Anion Gap 13 mmol/L (8-16); Aspartate Amino Transferase 32 U/L (14-36); Bilirubin,Total 0.6 mg/dL (0.2-1.3); Blood Urea Nitrogen 8 mg/dL (7-17); Calcium 9.3 mg/dL (8.4-10.2); Carbon Dioxide 25 mmol/L (22-30); Chloride 93 mmol/L (98-107); Estimated CRCL calculation 32 ml/min; Estimated Glomerular Filt Rate > 60; Glucose 169 mg/dL (65-110); Lipase 412 U/L (23-300); Potassium 3.6 mmol/L (3.4-5.0); Sodium 131 mmol/L (137-145)
[2023-03-20 19:00] LABS: Prothrombin Time 13.2 Seconds (11.1-14.7)
[2023-03-20 19:01] LABS: Partial Thromboplastin Time 29.5 SECONDS (22.3-36.8)
[2023-03-20 19:09] LABS: Troponin I < 0.012 ng/mL (0.000-0.034)
[2023-03-20] MEDS: FAMOTIDINE 20 MG/2 ML VIAL IV PUSH (20:14)
[2023-03-20] MEDS: ONDANSETRON INJ 4 MG/2 ML VIAL IV PUSH (20:14)
[2023-03-20] MEDS: SODIUM CHLORIDE 0.9% IV 1,000 ML 999 ML IV CONT (20:14)
[2023-03-20 20:43] LABS: Appearance Urine Clear (Clear); Bacteria Urine Rare /hpf; Bilirubin Urine Negative (Negative); Blood Urine Negative (Negative); Color Urine Yellow (Yellow); Glucose Urine UA Negative (Negative); Ketones Urine Negative (Negative); Leukocyte Esterase Ur Trace LEU/UL (Negative); Nitrate Urine Negative (Negative); Protein Urine Negative (Negative); RBC Urine 0-2 /hpf (0-2); Specific Grav Ur 1.013 (1.001-1.035); Squamous Epithelial Cell Urine None seen /hpf (Few); Urobilinogen Urine 0.2 mg/dL (<2.0); WBC Urine 0-5 /hpf; pH Urine 5.5 (5.0-9.0)
[2023-03-20 20:58] LABS: Add Urine Microscopic? YES
[2023-03-20 22:04] LABS: Troponin I < 0.012 ng/mL (0.000-0.034)
== END 2023-03-20 22:27 | disposition home or self-care (01) ==
PROVIDERS: Emergency Medicine; Emergency Provider Emergency Medicine; PCP Internal Medicine
DX: K44.9 Diaphragmatic hernia without obstruction or gangrene (principal); R10.13 Epigastric pain; R11.2 Nausea with vomiting, unspecified; I10 Essential (primary) hypertension; E03.9 Hypothyroidism, unspecified; R94.31 Abnormal electrocardiogram [ECG] [EKG]
CPT/HCPCS: 36415; 71045; 80053; 81001; 83690; 84484; 85025; 85610; 85730; 93005; 96361; 96374; 96375; 99284; J2405; J7030

== ENCOUNTER 2023-06-12 16:01 | Emergency (ER) | payer MEDICARE, SELFPAY ==
[2023-06-12 16:07] VITALS: BP 150/70; PULSE 104; RESP 24; O2SAT 99
[2023-06-12 16:26] LABS: Basophils Absolute Auto 0.1 K/mm3 (0.0-0.1); Basophils Percent Auto 0.9 % (0.2-1.2); Eosinophils Absolute Auto 0.1 K/mm3 (0-0.3); Hematocrit 41.8 % (37.0-47.0); Hemoglobin 14.2 g/dL (12.0-15.0); Immature Granulocyte Absolute 0.05 K/mm3 (0.00-0.031); Immature Granulocyte Percent A 0.4 % (0-0.5); Lymphocytes Absolute Auto 1.51 K/mm3 (0.9-3.2); Lymphocytes Percent Auto 13.1 % (18.3-44.2); Mean Corpuscular Hemoglobin 30.7 pg (26-34); Mean Corpuscular Volume 90.5 fl (80-100); Mean Platelet Volume 8.3 fl (7.4-10.4); Monocytes Absolute Auto 0.9 K/mm3 (0.1-0.6); Monocytes Percent Auto 7.9 % (2.6-8.5); Neutrophils Absolute Auto 8.8 K/mm3 (1.3-6.7); Neutrophils Percent Auto 76.7 % (45.5-73.1); Platelet Count Result 457 k/mm3 (150-375); Red Blood Count 4.62 M/mm3 (4.2-5.4); Red Cell Distribution Width 12.9 % (11.5-14.5); White Blood Count 11.5 K/mm3 (4.5-10.0)
[2023-06-12 16:36] LABS: Alanine Aminotransferase 22 U/L (6-35); Albumin Level 4.6 g/dL (3.5-5.1); Alkaline Phosphatase 88 U/L (38-126); Anion Gap 11 mmol/L (8-16); Aspartate Amino Transferase 31 U/L (14-36); Bilirubin,Total 0.5 mg/dL (0.2-1.3); Blood Urea Nitrogen 11 mg/dL (7-17); Calcium 9.8 mg/dL (8.4-10.2); Carbon Dioxide 27 mmol/L (22-30); Chloride 92 mmol/L (98-107); Estimated CRCL calculation 28 ml/min; Estimated Glomerular Filt Rate 59; Glucose 164 mg/dL (65-110); Lipase 416 U/L (23-300); Potassium 3.8 mmol/L (3.4-5.0); Sodium 130 mmol/L (137-145)
[2023-06-12 16:38] LABS: Appearance Urine Clear (Clear); Bacteria Urine 4+ /hpf; Bilirubin Urine Negative (Negative); Blood Urine Negative (Negative); Color Urine Yellow (Yellow); Glucose Urine UA Negative (Negative); Ketones Urine Negative (Negative); Leukocyte Esterase Ur 3+ LEU/UL (Negative); Nitrate Urine Positive (Negative); Non Pathogenic Casts 0-2; Protein Urine Trace mg/dL (Negative); RBC Urine 0-2 /hpf (0-2); Specific Grav Ur 1.011 (1.001-1.035); Squamous Epithelial Cell Urine None seen /hpf (Few); WBC Urine 51-100 /hpf
[2023-06-12 16:48] VITALS: PULSE 85; RESP 18
[2023-06-12 17:00] VITALS: PULSE 84; RESP 18
[2023-06-12 17:01] VITALS: BP 125/62; PULSE 81; RESP 19
[2023-06-12 17:13] LABS: Add Urine Microscopic? YES
[2023-06-12 17:15] VITALS: PULSE 79; RESP 17
[2023-06-12 17:16] VITALS: BP 125/60; PULSE 83; RESP 20
--- NOTE | 2023-06-12 17:30 | ED.GENADULT ---
HPI - General Adult General Chief complaint: Abdominal Pain Stated complaint: abdominal pain N/V Time Seen by Provider: 06/12/23 16:11 History of Present Illness HPI narrative: Patient is an 87-year-old female who presents ER with nausea and vomiting. Began today. Associated with some cramping in the left upper quadrant of her abdomen. She reports she has been having urinary frequency and discomfort over the last couple of days. She is concerned she has UTI. No fevers or chills or sweats. No chest pain or chest pressure. No additional concerns. Related Data Home Medications Medication Instructions Recorded Confirmed amlodipine 10 mg tablet 10 mg PO DAILY 02/19/23 04/30/23 diclofenac sodium 75 mg 75 mg PO DAILY 02/19/23 04/30/23 tablet,delayed release ergocalciferol (vitamin D2) 1,250 1,250 mcg PO WEEKLY 02/19/23 04/30/23 mcg (50,000 unit) capsule potassium chloride 10 mEq 10 meq PO DAILY 02/19/23 04/30/23 capsule,extended release spironolactone 50 mg tablet 50 mg PO HS 02/19/23 04/30/23 C 250 mg-E 137.5 mg-zinc 12.5 1 tablet PO BID 04/30/23 04/30/23 [id number] capsule ([place] Advanced AREDS2) Allergies Allergy/AdvReac Type Severity Reaction Status Date / Time codeine Allergy Unknown Unknown Verified 06/12/23 16:13 Penicillins Allergy Unknown RASH Verified 06/12/23 16:13 Sulfa (Sulfonamide Allergy Unknown Unknown Verified 06/12/23 16:13 Antibiotics) Review of Systems Review of Systems: All systems reviewed & are unremarkable except as noted in HPI and below Constitutional: Constitutional: Denies chills, Denies fatigue and Denies fever(s) Cardiovascular: Cardiovascular: Denies chest pain and Denies rapid heart rate Respiratory: Respiratory: Denies cough and Denies dyspnea Gastrointestinal: Gastrointestinal: Reports abdominal pain, Denies diarrhea, Reports nausea and Reports vomiting Genitourinary: Genitourinary: Reports nocturia, Reports dysuria, Denies pelvic pain and Denies flank pain PMFSH Past Medical History Medical History Hiatal hernia Hypertension Hypothyroidism Spinal stenosis Surgical History Surgical History H/O breast biopsy History of tubal ligation Family History Family History Mother Cancer of kidney Father Cancer of kidney Social History 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 HEAD: Normocephalic, atraumatic. ENT: Mucous membranes moist. CHEST: Clear to auscultation. No respiratory distress. HEART: Regular rate and rhythm. Normal peripheral pulses. ABDOMEN: Soft, nontender, nondistended. No flank pain. EXTREMITIES: Normal range of motion. No edema. SKIN: Warm, dry, no rash. NEURO: Alert and oriented x3. PSYCH: Normal mood and affect. Course Course Emergency Course: Patient resting comfortably. Informed results. Discussed treatment plan. Discharge home. Vital Signs Vital signs: Vital Signs Pulse Rate 104 H 06/12/23 16:07 Respiratory Rate 24 H 06/12/23 16:07 Blood Pressure 150/70 H 06/12/23 16:07 Pulse Oximetry 99 06/12/23 16:07 Oxygen Delivery Room Air
== END 2023-06-12 17:51 | disposition home or self-care (01) ==
PROVIDERS: Emergency Provider Emergency Medicine; PCP Internal Medicine
DX: N39.0 Urinary tract infection, site not specified (principal); R11.2 Nausea with vomiting, unspecified; I10 Essential (primary) hypertension; E03.9 Hypothyroidism, unspecified
CPT/HCPCS: 36415; 80053; 81001; 83690; 85025; 87077; 87086; 87186; 99283

== ENCOUNTER 2024-01-09 10:39 | Emergency (ER) | payer MEDICARE, SELFPAY ==
--- NOTE | ~2024-01-09 | CT_ITS ---
Non-contrast Head CT History: Headache Technique: Axial non-contrast imaging of the brain was performed. Dose reduction technique was used on this scan by utilizing automated exposure control and iterative reconstruction technique. The dose -length product (DLP) was 529.67 mGy-cm. Findings: There is no evidence of intracranial hemorrhage, mass lesion, or acute infarct. Brain par enchyma appears normal. The ventricles and subarachnoid spaces are normal in size. The calvarium ap pears normal. The visualized paranasal sinuses and mastoid air cells are clear. Impression: No significant abnormality seen. Reviewed, dictated and finalized at location . K [employer]ING [employer]PERATOR Impression: No significant abnormality seen.
[2024-01-09 10:41] VITALS: BP 152/66; PULSE 98; RESP 16; TEMP 36.5; O2SAT 100
[2024-01-09 11:50] VITALS: PULSE 89
[2024-01-09 11:51] VITALS: BP 145/70; PULSE 86; RESP 19; O2SAT 100
--- NOTE | 2024-01-09 12:18 | PC.NURSE ---
pt in CT scan at this time.
[2024-01-09] MEDS: diphenhydrAMINE HCl INJ 50 MG/ML VIAL 12.5 MG IV PUSH (12:32)
[2024-01-09] MEDS: PROCHLORPERAZINE EDISYLATE 10 MG/2 ML VIAL IV PUSH (12:32)
[2024-01-09] MEDS: SODIUM CHLORIDE 0.9% IV 500 ML 999 ML IV CONT (12:33)
[2024-01-09] MEDS: ACETAMINOPHEN 500 MG TABLET 1000 MG PO (12:33)
[2024-01-09 13:23] LABS: Influenza A QL RT-PCR Negative (Negative); Influenza B QL RT-PCR Negative (Negative); RSV RNA, RT-PCR Negative (Negative); SARS-CoV-2 RNA PCR Negative (Negative)
[2024-01-09 13:46] VITALS: BP 133/60; PULSE 75; RESP 16; O2SAT 97
--- NOTE | 2024-01-09 13:56 | ED.HA ---
HPI - Headache General Chief Complaint: Headache Stated Complaint: HEADACHE,NAUSEA Time Seen by Provider: 01/09/24 11:38 History of Present Illness HPI Narrative: This is an 88-year-old female, with history of hypertension, presents emergency department complaining of headache Since this morning. The patient describes as pressure-like, diffuse without associated fevers, chills, chills loss of vision, change /loss of hearing, weakness or numbness. She states she has had some upper his congestion and cough without any known sick contacts. The patient's daughter, who is at bedside states the patient appears to be at her baseline. Related Data Home Medications Medication Instructions Recorded Confirmed amlodipine 10 mg tablet 10 mg PO DAILY 02/19/23 04/30/23 diclofenac sodium 75 mg 75 mg PO DAILY 02/19/23 04/30/23 tablet,delayed release ergocalciferol (vitamin D2) 1,250 1,250 mcg PO WEEKLY 02/19/23 04/30/23 mcg (50,000 unit) capsule potassium chloride 10 mEq 10 meq PO DAILY 02/19/23 04/30/23 capsule,extended release spironolactone 50 mg tablet 50 mg PO HS 02/19/23 04/30/23 C 250 mg-E 137.5 mg-zinc 12.5 1 tablet PO BID 04/30/23 04/30/23 [id number] capsule ([place] Advanced AREDS2) Allergies Allergy/AdvReac Type Severity Reaction Status Date / Time codeine Allergy Unknown Unknown Verified 01/09/24 11:47 Penicillins Allergy Unknown RASH Verified 01/09/24 11:47 Sulfa (Sulfonamide Allergy Unknown Unknown Verified 01/09/24 11:47 Antibiotics) Review of Systems Review of Systems: CONSTITUTIONAL: Denies fever, chills, or sweats. ENT: Rhinorrhea, congestion Denies sore throat, or otalgia. CARDIOVASCULAR: Denies chest pain, palpitations, or edema. RESPIRATORY: Denies cough or dyspnea. GASTROINTESTINAL: Denies abdominal pain, nausea, vomiting, or diarrhea. GENITOURINARY: Denies dysuria or hematuria. SKIN: Denies rash or itching. MUSCULOSKELETAL: Denies back pain, joint pain, or myalgia. NEUROLOGIC: Headache Denies numbness, dizziness, or weakness. PSYCHIATRIC: Denies anxiety or depression. 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 HEAD: Normocephalic, atraumatic. EYES: PERRLA and EOMI. ENT: Nares clear, no rhinorrhea or epistaxis. Mucous membranes moist. Oropharynx without tonsillar hypertrophy exudate or other lesions. NECK: Supple. No adenopathy or masses. Negative head impulse test CHEST: Clear to auscultation. No respiratory distress. No wheezes rales or rhonchi HEART: Regular rate and rhythm. No murmur heard. Normal peripheral pulses. ABDOMEN: Soft, nontender, nondistended, normal active bowel sounds. EXTREMITIES: Normal range of motion. No edema. SKIN: Warm, dry, no rash. NEURO: Alert and oriented x3. No focal deficit. Moving all 4 limbs s
[2024-01-09 15:20] VITALS: BP 136/68; PULSE 79; RESP 17; O2SAT 100
== END 2024-01-09 15:20 | disposition home or self-care (01) ==
PROVIDERS: Emergency Provider Preventive Medicine Aerospace Medicine; PCP Internal Medicine
DX: J00 Acute nasopharyngitis [common cold] (principal); R51.9 Headache, unspecified; Z20.822 Contact with and (suspected) exposure to COVID-19; I10 Essential (primary) hypertension; E03.9 Hypothyroidism, unspecified
CPT/HCPCS: 70450; 87637; 96361; 96374; 96375; 99284; A9270; J0780; J1200; J7040

== ENCOUNTER 2025-05-25 15:47 | Emergency (ER) | payer MEDICARE, SELFPAY ==
[2025-05-25] VITALS (25 sets, daily range): BP systolic 125–167; BP diastolic 61–73; PULSE 75–107; RESP 17–35; TEMP 36.3; O2SAT 94–100
--- NOTE | ~2025-05-25 | CT_ITS ---
EXAMINATION: CT abdomen pelvis w con DATE: 05/25/2025 18:13 INDICATION: Left lower quadrant abdominal pain, nausea and vomiting TECHNIQUE: Computed tomography (CT) of the abdomen and pelvis was performed with 100 mL Omnipaque-350 intravenous contrast. Automated exposure control and iterative reconstruction technique were employe d. The dose-length product was 447.43 mGy-cm. COMPARISON: 02/19/2023 FINDINGS: Atelectasis in bilateral lower lobes. Dependently and medially along side a large hiatal hernia. The tyrel hernia contains the distal body and antrum of the stomach, likely paraesophageal with the gastro esophageal junction near the level of the thoracic hiatus and the fundus of the stomach remaining bel ow the diaphragm. There is an additional short segment of likely transverse colon extending into the hernia. No pneumonia, pulmonary edema or pleural effusion. Heart size is normal. Atherosclerotic shirley nary artery calcific lesion. No pericardial effusion. Spleen, pancreas, bilateral adrenal glands and kidneys are normal. No bowel obstruction. The appendix is not visualized. No pericecal inflammatory c hange to suggest acute appendicitis. Bladder is normal. Uterus and right adnexa are unremarkable. 2.8 cm left adnexal cyst. No free intraperitoneal gas or fluid. No pathologically enlarged abdominal or pelvic lymphadenopathy. Severe lumbar spondylosis with grade 1 retrolisthesis L1 on L2 and L2 on L3 a nd grade 1 anterolisthesis L4 on L5 and L5 on S1. IMPRESSION: 1. No acute intra-abdominal/pelvic process. 2. Large hiatal hernia with likely paraesophageal type and also containing portion of the transverse colon. 3. 2.8 cm left adnexal cyst. Reviewed, dictated and finalized at location A. IMPRESSION: 1. No acute intra-abdominal/pelvic process. 2. Large hiatal hernia with likely paraesophageal type and also containing port ion of the transverse colon. 3. 2.8 cm left adnexal cyst.
--- OUTSIDE RECORDS SUMMARY | 2025-05-25 15:50 | XMS_ITS | Clinical Summary ---
Author Organization [facility] Address [address] [place] [id number] Care Team Providers Care Mannequin Maker Name Role Phone Nisha Hartmann DO Primary Care Provider Social History Tobacco Use Types Packs/Day Years Used Date Smoking Tobacco: Never Assessed Comments Unknown Sex and Gender Information Value Date Recorded Sex Assigned at Not on file Legal Sex Female 6:09 PM CDT Gender Identity Not on file Sexual Orientation Not on file Plan of Treatment Health Maintenance Due Date Last Done Comments DTaP, Tdap and Td Vaccines ( 1 - Tdap) 1955 Pneumococcal Vaccine: 50+ Ye ars (1 of 1 - PCV) 1986 Zoster Vaccines (1 of 2) 1986 RSV Immunization or 60+ Years (1 - 1-dose 75+ series) 2011 COVID-19 Vaccine ( - 2023-2 5 season) 2024 Meningococcal B Vaccine Aged Out No l onger eligible based on patient's age to complete this topic Meningococcal Vaccine Aged Out No chito carrie eligible based on patient's age to complete this topic RSV Immunizations Under 20 Months Aged Out No longer eligible based on patient's age to complete this topic Care Teams Mannequin Maker Relationship Specialty Start Date End Date Nisha Hartmann DO [address] [place] [address] PCP - General 10/23/16
[2025-05-25] MEDS: PANTOPRAZOLE SODIUM IV 40 MG VIAL IV PUSH (16:00)
[2025-05-25] MEDS: ONDANSETRON INJ 4 MG/2 ML VIAL IV PUSH (16:00)
[2025-05-25 16:13] LABS: Hematocrit 42.3 % (37.0-47.0); Hemoglobin 14.4 g/dL (12.0-15.0); Immature Granulocyte Percent A 0.6 % (0-0.5); Lymphocytes Absolute Auto 1.71 K/mm3 (0.9-3.2); Mean Corpuscular HGB Conc 34.0 g/dl (32-36); Mean Corpuscular Hemoglobin 30.6 pg (26-34); Mean Corpuscular Volume 89.8 fl (80-100); Nucleated Red Blood Cells Absolute Auto 0.000 K/mm3 (0.0-0.012); Nucleated Red Blood Cells Perc 0.0 % (0.0-0.2); Platelet Count Result 432 k/mm3 (150-375); Red Blood Count 4.71 M/mm3 (4.2-5.4); White Blood Count 9.9 K/mm3 (4.5-10.0)
--- OUTSIDE RECORDS SUMMARY | 2025-05-25 16:20 | XMS_ITS | Clinical Summary ---
Author Organization [facility] Address [address] [place] [id number] Care Team Providers Care Clinical Informatics Spec Name Role Phone Nisha Hartmann DO Primary Care Provider [phone] Social History Tobacco Use Types Packs/Day Years [...] age to complete this topic Care Teams Clinical Informatics Spec Relationship Specialty Start Date End Date Nisha Hartmann DO [address] [place] [address] PCP - General 10/23/16
[2025-05-25 16:24] LABS: Add Urine Microscopic? YES; Appearance Urine Clear (Clear); Glucose Urine UA Negative (Negative); Leukocyte Esterase Ur Trace LEU/UL (Negative); Nitrate Urine Negative (Negative); Non Pathogenic Casts 0-2; Specific Grav Ur 1.011 (1.001-1.035)
[2025-05-25 16:33] LABS: Alanine Aminotransferase 17 U/L (6-35); Albumin Level 4.5 g/dL (3.5-5.1); Alkaline Phosphatase 90 U/L (38-126); Anion Gap 12 mmol/L (4-12); Aspartate Amino Transferase 30 U/L (14-36); Bilirubin,Total 0.6 mg/dL (0.2-1.3); Blood Urea Nitrogen 15 mg/dL (7-17); Calcium 9.7 mg/dL (8.4-10.2); Carbon Dioxide 23 mmol/L (22-30); Chloride 96 mmol/L (98-107); Estimated CRCL calculation 26 ml/min; Estimated Glomerular Filt Rate 56; Glucose 140 mg/dL (65-110); Lipase 338 U/L (23-300); Potassium 3.9 mmol/L (3.4-5.0); Sodium 131 mmol/L (137-145); Total Protein 8.5 g/dL (6.3-8.2)
--- NOTE | 2025-05-25 18:11 | ED_ITS ---
HPI - Nausea/Vomiting/Diarrhea General Chief complaint: Nausea/Vomiting/Diarrhea Stated complaint: vomiting Time Seen by Provider: 05/25/25 15:53 History of Present Illness HPI Narrative: Patient presenting here with nausea vomiting and left abdominal pain that started this morning, she does have a history of hiatal hernia. Related Data Home Medications ?Medication ?Instructions ?Recorded ?Confirmed ?Last Taken ?Type amlodipine 10 mg tablet 10 mg PO DAILY 02/19/23 04/30/23 Unknown History diclofenac sodium 75 mg 75 mg PO DAILY 02/19/23 04/30/23 Unknown History tablet,delayed release ergocalciferol (vitamin D2) 1,250 1,250 mcg PO WEEKLY 02/19/23 04/30/23 Unknown History mcg (50,000 unit) capsule potassium chloride 10 mEq 10 meq PO DAILY 02/19/23 04/30/23 Unknown History capsule,extended release spironolactone 50 mg tablet 50 mg PO HS 02/19/23 04/30/23 Unknown History C 250 mg-E 137.5 mg-zinc 12.5 1 tablet PO BID 04/30/23 04/30/23 Unknown History [id number] capsule ([place] Advanced AREDS2) Allergies Allergy/AdvReac Type Severity Reaction Status Date / Time codeine Allergy Unknown Unknown Verified 05/25/25 15:58 Penicillins Allergy Unknown RASH Verified 05/25/25 15:58 Sulfa (Sulfonamide Allergy Unknown Unknown Verified 05/25/25 15:58 Antibiotics) Review of Systems 2 Review of Systems: All systems reviewed & are unremarkable except as noted in HPI and below PMFSH Past Medical History Medical History Hiatal hernia Hypertension Hypothyroidism Spinal stenosis Surgical History Surgical History H/O breast biopsy History of tubal ligation Family History Family History Mother Cancer of kidney Father Cancer of kidney Social History 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 Smoking status: Never smoker Alcohol intake: never Substance use: never Lack of Transportation: No Lack of Food: Never True Current Housing: I Have Housing Concerned About Future Housing: No Difficulty Paying Gas/Electric Bills: No Difficulty Paying for Meds: No Currently Unemployed: No Education: High School Diploma/GED Difficulty w/ Childcare or Family Care: No Gender identity (if verbalized by the patient): Female Spiritual care concerns: No Exam 2 Narrative: EXAMINATION OF ORGAN SYSTEMS/BODY AREAS: Constitutional: Vital signs per nursing GENERAL:[No acute distress, non-toxic appearing.] HEAD: Normal with no signs of head trauma. EYES: EOMI, conjunctiva normal ENT: Hearing grossly intact LUNGS: Nonlabored breathing. HEART: [Regular rate and rhythm] ABD: [Soft], [nontender to palpation] EXT: Normal range of motion SKIN: [No rashes or lesions.] NEURO: [Alert and oriented x 3. No gross focal sensory or strength deficits.] PSYCH: Normal affect Course Vital Signs Vital signs: Vital Signs Temperature 97.3 F L 05/25/25 15:54 Pulse Rate 95 05/25/25 15:54 Respiratory Rate 20 05/25/25 15:54 Pulse Oximetry 99 05/25/25 15:54 Temperature 97.3 F L 05/25/25 15:54 Pulse Rate 95 05/25/25 15:58 Respiratory Rate 20 05/25/25 15:54 Blood Pressure 152/73 H 05/25/25 15:58 Pulse Oximetry 98 05/25/25 15:58 MDM - Nausea/Vomiting/Diarrhea MDM Narrative Medical decision making narrative: Electronic medical record was reviewed. Patient presented to the ED with complaint of [left abdominal pain and vomiting]. Vitals [were within acceptable limits]. Physical exam revealed [tenderness to palpation in periumbilical abdomen]. Based on the patient's history and physical exam, my differential includes but is not limited to [gastritis, gastroenteritis, cholecystitis, pancreatitis, appendicitis]. [IV access was established by nursing staff. Patient was given zofran, protonix]. CBC, BMP, lipase, LFTs, bilirubin and alk phos were obtained. Labs were pertinent for very minimally elevated lipase though this is baseline. [Decision was made to obtain a CT-abdomen to evaluate for acute abdominal process. CT- abdomen per radiology interpretation shows large hiatal hernia thankfully without acute abnormalities.] On reevaluation, the patient states that they are feeling much better. There were no witnessed episodes of vomiting in the emergency department. They are not complaining of any new abdominal pain. Repeat examination did not show any significant guarding or rebound. No new tenderness. At this time I do not feel there is any further emergent treatment to be provided. The patient was given strict return precautions, if they are to develop any worsening abdominal pain, vomiting, or blood in the vomit they are to return to the emergency department immediately. Patient verbally acknowledges understanding these directions. [The patient was informed of the above diagnostic test findings.] No further workup is necessary at this time. They will be discharged home [with prescriptions]. They were advised to follow-up with [their PCP] in 2 days. The patient feels that this is appropriate medical decision making and verbalizes an understanding of the discharge instructions. Lab Data 05/25/25 16:06 05/25/25 16:06 Labs: Lab Results 05/25/25 05/25/25 05/25/25 Range/Units 16:06 16:15 17:32 WBC 9.9 (4.5-10.0) K/mm3 RBC 4.71 (4.2-5.4) M/mm3 Hgb 14.4 (12.0-15.0) g/dL Hct 42.3 (37.0-47.0) % MCV 89.8 (80-100) fl MCH 30.6 (26-34) pg MCHC 34.0 (32-36) g/dl RDW 13.6 (11.5-14.5) % Plt Count 432 H (150-375) k/mm3 MPV 8.2 (7.4-10.4) fl Immature Gran % (Auto) 0.6 H (0-0.5) % Neut % (Auto) 70.9 (45.5-73.1) % Lymph % (Auto) 17.3 L (18.3-44.2) % [place] % (Auto) 8.0 (2.6-8.5) % Eos % (Auto) 2.1 (0-4.4) % Baso % (Auto) 1.1 (0.2-1.2) % Lymph # (Auto) 1.71 (0.9-3.2) K/mm3 [place] # (Auto) 0.8 H (0.1-0.6) K/mm3 Eos # (Auto) 0.2 (0-0.3) K/mm3 Baso # (Auto) 0.1 (0.0-0.1) K/mm3 Abs Immat Gran (auto) 0.06 H (0.00-0.031) K/mm3 Absolute Neuts (auto) 7.0 H (1.3-6.7) K/mm3 Absolute Nucleated RBC 0.000 (0.0-0.012) K/mm3 Nucleated RBC % 0.0 (0.0-0.2) % Sodium 131 L (137-145) mmol/L Potassium 3.9 (3.4-5.0) mmol/L Chloride 96 L (98-107) mmol/L Carbon Dioxide 23 (22-30) mmol/L Anion Gap 12 (4-12) mmol/L BUN 15 (7-17) mg/dL Creatinine 0.94 (0.7-1.0) mg/dL Estim Creat Clear Calc 26 ml/min Estimated GFR 56 L (59 - ) Glucose 140 H (65-110) mg/dL Lactic Acid 1.4 (0.7-2.0) mmol/L Calcium 9.7 (8.4-10.2) mg/dL Total Bilirubin 0.6 (0.2-1.3) mg/dL AST 30 (14-36) U/L ALT 17 (6-35) U/L Alkaline Phosphatase 90 (38-126) U/L Total Protein 8.5 H (6.3-8.2) g/dL Albumin 4.5 (3.5-5.1) g/dL Lipase 338 H (23-300) U/L Urine Color Yellow (Yellow) Urine Appearance Clear (Clear) Urine pH 6.0 (5.0-9.0) Ur Specific [place] 1.011 (1.001-1.035) Urine Protein Negative (Negative) mg/dL Urine Glucose (UA) Negative (Negative) mg/dL Urine Ketones Negative (Negative) mg/dL Ur Blood (Man) Negative (Negative) Urine Nitrate Negative (Negative) Urine Bilirubin Negative (Negative) Urine Urobilinogen 0.2 (<2.0) mg/dL Leukocyte Esterase Rfl Trace H (Negative) INGRIS/UL Urine RBC 0-2 (0-2) /hpf Urine WBC 0-5 (0-3) /hpf Ur Squamous Epith Cells None seen (Few) /hpf Urine Bacteria None seen /hpf Urine Casts 0-2 Discharge Plan Discharge Clinical Impression: Nausea & vomiting, Hernia, hiatal Patient Disposition: Home Condition: Stable Instructions: Hiatal Hernia (ED) Additional Instructions: Please follow up with your doctor; you can always return for any further issues. Patient Language: Azerbaijani Prescriptions: New famotidine 20 mg tablet 20 mg PO DAILY Qty: 30 0RF alum-mag hydroxide-simeth [Maalox Advanced] 200-200-20 mg/5 mL suspension 10 ml PO QID PRN (Reason: dyspepsia) Qty: 200 0RF Rx Instructions: administer between meals and at bedtime ondansetron 4 mg tablet,disintegrating 4 mg PO Q8H PRN (Reason: nausea and vomiting) Qty: 20 0RF No Action [place] Advanced AREDS2 250-137.5-12.5 mg capsule 1 tablet PO BID Rx Instructions: administer with AM and PM meals ondansetron 4 mg tablet,disintegrating 4 mg PO Q8H PRN (Reason: nausea and vomiting) Qty: 20 0RF cephalexin 500 mg capsule 500 mg PO Q12H Qty: 14 0RF ondansetron 4 mg tablet,disintegrating 4 mg PO Q6H PRN (Reason: nausea and vomiting) Qty: 10 0RF amlodipine 10 mg tablet 10 mg PO DAILY diclofenac sodium 75 mg tablet,delayed release (DR/EC) 75 mg PO DAILY ergocalciferol (vitamin D2) 1,250 mcg (50,000 unit) capsule 1,250 mcg PO WEEKLY spironolactone 50 mg tablet 50 mg PO HS potassium chloride 10 mEq capsule, extended release 10 meq PO DAILY pantoprazole [Protonix] [address] for susp in packet 40 mg PO BID Qty: 60 0RF Follow-up/Referrals: Des,Nisha Almonte DO [Primary Care Provider] - 2 Days
== END 2025-05-25 19:21 | disposition home or self-care (01) ==
PROVIDERS: Emergency Provider Emergency Medicine; PCP Internal Medicine
DX: R11.2 Nausea with vomiting, unspecified (principal); K44.9 Diaphragmatic hernia without obstruction or gangrene; I10 Essential (primary) hypertension; E03.9 Hypothyroidism, unspecified; Z79.899 Other long term (current) drug therapy
CPT/HCPCS: 36415; 74177; 80053; 81001; 83605; 83690; 85025; 96374; 96375; 99284; J2405; J2470; Q9967

== ENCOUNTER 2025-07-21 08:48 | Emergency (ER) | payer MEDICARE, SELFPAY ==
--- OUTSIDE RECORDS SUMMARY | 2025-07-13 03:59 | XMS_ITS | Continuity of Care Document ---
Author Organization [facility] [place] Address [address] [place] [address] Phone Care Team Providers Care Facility Assistant Name Role Phone Nisha Hartmann DO Unavailable Unavailable Allergies, Adverse Reactions, Alerts Substance Reaction Status Criticality NITROFURANTOIN MACROCRYSTALLINE Headache Active No Information nitrofurantoin Headache Active No Informatio n Sulfa (Sulfonamide Antibiotics) RashRash Active No Information codeine Other Active No Information penicillin G Other Active No Information Medications Medication Instructions Dosage Effective Dates (start - stop) Status Comments amlodipine 10 mg tablet TAKE 1 TABLET BY MOUTH EVERY DAY - Active Aldactone 50 mg tablet TAKE 1 TABLET BY MOUTH EVERY DAY - Active ergocalciferol (vitamin D2) 1,250 mcg (50,000 unit) capsule TAKE 1 CAPSULE BY MOUTH EVERY WEEK - Active potassium chloride ER 10 mEq capsule,extended release TAKE 2 CAPSULES BY MOUTH ONCE DAILY - Active New dose 08/10/24 diclofenac sodium 75 mg tablet,delayed release TAKE 1 TABLET BY MOUTH EVERY 24 HOURS NEEDED - Active pantoprazole 40 mg tablet,delayed release take 1 tablet by oral route every day 40 MG - Active ondansetron HCl 4 mg tablet take 2 tablet by oral route every 8 hours prn as needed - Active Moisture Barrier Ointment 0.44 %-20.6 % - Active PreserVision AREDS 14,320 unit-226 mg-200 unit capsule take 2 tablet by oral route every day 2 tablet - Active Fiber-Caps (psyllium husk) 0.52 gram capsule take 1 capsule by oral route every day 1 capsule - Active Refresh Tears 0.5 % eye drops - Active Procedures Procedure Date CBC, INC PLATELETS AND DIFFERENTIAL COMPREHEN METABOLIC PANEL CMP 5 PARATHYROID HORMONE (PTH) THYROID STIMULATION HORMONE(TSH) 2024 VITAMIN D, 25-HYDROXY MED LIST DOCD IN RCRD URINALYSIS, DIPSTICK (UA) - Office Lab A ROUTINE VENIPUNCTURE IL OFFICE [id number] BODY MASS INDEX DOCD SYST BP >= 140 MM HG6 IT DIAST BP < 80 MM HG ROUTINE VENIPUNCTURE IL URINALYSIS, DIPSTICK (UA) - Office Lab J COMPREHEN METABOLIC PANEL [facility] URINALYSIS, DIPSTICK (UA) - Office Lab O CBC, INC PLATELETS AND DIFFERENTIAL COMPREHEN METABOLIC PANEL CMP 4 PARATHYROID HORMONE (PTH) THYROID STIMULATION HORMONE(TSH) 2023 VITAMIN D, 25-HYDROXY Pt inelig neg scrn depres Admin influenza virus vac FLU VACC PRSV FREE INC ANTIG OFFICE [id number] BODY MASS INDEX DOCD SYST BP GE 130 - 139MM HG DIAST BP < 80 MM HG URINALYSIS, DIPSTICK (UA) - Office Lab O ROUTINE VENIPUNCTURE IL DSCHRG MED/CURRENT MED MERGE OFFICE [id number] BODY MASS INDEX DOCD SYST BP GE 130 - 139MM HG DIAST BP < 80 MM HG URINALYSIS, DIPSTICK (UA) - Office Lab M ar-04-2024 CBC, INC PLATELETS AND DIFFERENTIAL COMPREHEN METABOLIC PANEL CMP PARATHYROID HORMONE (PTH) THYROID STIMULATION HORMONE(TSH) 2023 VITAMIN D, 25-HYDROXY Pt inelig neg scrn depres URINALYSIS, DIPSTICK (UA) - Office Lab F ROUTINE VENIPUNCTURE IL OFFICE [id number] BODY MASS INDEX DOCD SYST BP LT 130 MM HG DIAST BP < 80 MM HG URINALYSIS, DIPSTICK (UA) - Office Lab J Kept Appointment No Charge Encounter Nov URINALYSIS, DIPSTICK (UA) - Office Lab D URINALYSIS, DIPSTICK (UA) - Office Lab N OFFICE [id number] CBC, INC PLATELETS AND DIFFERENTIAL COMPREHEN METABOLIC PANEL CMP CREATINE KINASE, TOTAL (CPK,CK) 023 LIPID PANEL PARATHYROID HORMONE (PTH) THYROID STIMULATION HORMONE(TSH) 2022 VITAMIN D, 25-HYDROXY URINALYSIS, DIPSTICK (UA) - Office Lab A ROUTINE VENIPUNCTURE IL OFFICE [id number]-[id number]-[id number] BODY MASS INDEX DOCD SYST BP GE 130 - 139MM HG DIAST BP < 80 MM HG DSCHRG MED/CURRENT MED MERGE PNEUMOVAX ADM MEDICARE Pneumococcal Conjugate Vaccine (PCV20) A OFFICE [id number]-[id number] BODY MASS INDEX DOCD SYST BP GE 130 - 139MM HG DIAST BP < 80 MM HG COMPREHEN METABOLIC PANEL CMP 3 THYROID STIMULATION HORMONE(TSH) 2022 URINALYSIS, DIPSTICK (UA) - Office Lab J ROUTINE VENIPUNCTURE IL OFFICE [id number] BODY MASS INDEX DOCD SYST BP GE 130 - 139MM HG DIAST BP < 80 MM HG BASIC METABOLIC PANEL(BMP) CBC, INC PLATELETS AND DIFFERENTIAL DSCHRG MED/CURRENT MED MERGE ROUTINE VENIPUNCTURE IL Transitional Care- First 7 Days Of Disch arge BODY MASS INDEX DOCD SYST BP GE 130 - 139MM HG DIAST BP < 80 MM HG FALL RISK ASSESSMENT DOC'D PRES/ABSN URINE INCON ASSESS DSCHRG MED/CURRENT MED MERGE URINALYSIS, DIPSTICK (UA) - Office Lab A Transitional Care- First 7 Days Of Disch arge BODY MASS INDEX DOCD SYST BP GE 130 - 139MM HG DIAST BP < 80 MM HG CBC, INC PLATELETS AND DIFFERENTIAL COMPREHEN METABOLIC PANEL CMP 3 LIPID PANEL PARATHYROID HORMONE (PTH) THYROID STIMULATION HORMONE(TSH) 2022 VITAMIN D, 25-HYDROXY ROUTINE VENIPUNCTURE IL OFFICE [id number]-[id number] BODY MASS INDEX DOCD SYST BP GE 130 - 139MM HG DIAST BP < 80 MM HG Pt inelig neg scrn depres CBC, INC PLATELETS AND DIFFERENTIAL COMPREHEN METABOLIC PANEL CMP 2 THYROID STIMULATION HORMONE(TSH) 2021 URINALYSIS, DIPSTICK (UA) - Office Lab A ROUTINE VENIPUNCTURE IL OFFICE [id number] BODY MASS INDEX DOCD SYST BP GE 130 - 139MM HG DIAST BP < 80 MM HG URINALYSIS, DIPSTICK (UA) - Office Lab J FALL RISK ASSESSMENT DOC'D PRES/ABSN URINE INCON ASSESS Pt inelig neg scrn depres CBC, INC PLATELETS AND DIFFERENTIAL COMPREHEN METABOLIC PANEL CMP CREATINE KINASE, TOTAL (CPK,CK) 022 LIPID PANEL PARATHYROID HORMONE (PTH) RBC SED RATE, AUTOMATED THYROID STIMULATION HORMONE(TSH) 2021 VITAMIN D, 25-HYDROXY URINALYSIS, DIPSTICK (UA) - Office Lab M ROUTINE VENIPUNCTURE OFFICE [id number] BODY MASS INDEX DOCD SYST BP GE 130 - 139MM HG DIAST BP < 80 MM HG Pt inelig neg scrn depres BASIC METABOLIC PANEL(BMP) ROUTINE VENIPUNCTURE IL OFFICE [id number]-[id number] BODY MASS INDEX DOCD SYST BP GE 130 - 139MM HG DIAST BP < 80 MM HG Pt inelig neg scrn depres CBC, INC PLATELETS AND DIFFERENTIAL COMPREHEN METABOLIC PANEL [facility] THYROID STIMULATION HORMONE(TSH) 2020 ROUTINE VENIPUNCTURE OFFICE [id number]-[id number] BODY MASS INDEX DOCD SYST BP GE 130 - 139MM HG DIAST BP < 80 MM HG BASIC METABOLIC PANEL(BMP) ROUTINE VENIPUNCTURE IL COMPREHEN METABOLIC PANEL [facility] ROUTINE VENIPUNCTURE IL OFFICE [id number] BODY MASS INDEX DOCD SYST BP LT 130 MM HG DIAST BP < 80 MM HG Admin influenza virus vac FLU VACC PRSV FREE INC ANTIG URINALYSIS, DIPSTICK (UA) - Office Lab S OFFICE [id number] Pt inelig neg scrn depres CBC, INC PLATELETS AND DIFFERENTIAL COMPREHEN METABOLIC PANEL [facility] LIPID PANEL THYROID STIMULATION HORMONE(TSH) 2020 URINALYSIS, REFLEX (UA) VITAMIN D, 25-HYDROXY ROUTINE VENIPUNCTURE IL OFFICE [id number] BODY MASS INDEX DOCD SYST BP GE 130 - 139MM HG DIAST BP < 80 MM HG FREE T4 (FT4) OFFICE [id number] Pt inelig neg scrn depres CBC, INC PLATELETS AND DIFFERENTIAL COMPREHEN METABOLIC PANEL [facility] 9 THYROID STIMULATION HORMONE(TSH) 2018 ROUTINE VENIPUNCTURE IL OFFICE [id number]-SCI-[id number] BODY MASS INDEX DOCD SYST BP GE 130 - 139MM HG DIAST BP < 80 MM HG FALL PLAN OF CARE DOC'D URINE INCON PLAN DOC'D PRES/ABSN URINE INCON ASSESS CBC, INC PLATELETS AND DIFFERENTIAL COMPREHEN METABOLIC PANEL [facility] 9 LIPID PANEL THYROID STIMULATION HORMONE(TSH) 2018 VITAMIN D, 25-HYDROXY URINALYSIS, DIPSTICK (UA) - Office Lab J ROUTINE VENIPUNCTURE IL OFFICE [id number] BODY MASS INDEX DOCD SYST BP GE 130 - 139MM HG DIAST BP < 80 MM HG Advance Directives Directive Yes / No Effective Date File Name No Information Encounters Encounter Description Practice Location Reason(s) For Visit Diagnoses Date Provider Providers Copied on Encounter [facility], [address], [place], [place], [address] , [place] tel: [phone] [facility] [place] No Information 0 5 Shahbaz Cameron. [address] [place] [address], [id number], [place]. tel:[phone] [facility], [address], [place], [place], [address] , [place] tel: [phone] [facility] No Information 5 Shahbaz Cameron. [address] [place] [address], [id number], [place]. tel:[phone] [facility], [address], [place], [place], [address] , [place] tel: [phone] [facility] No Information 5 Shahbaz Cameron. [address] [place] [address], [id number], [place]. tel:[phone] [facility], [address], [place], [place], [address] , [place] tel: [phone] [facility] No Information 5 Estelle Madera. [address] [place] [address], [id number], . tel:[phone] Referring Provider: Rupa Posada, [address] [place] [address], [address] . tel:[phone] OFFICE FOVVU-OFX-RVW SPARKLE [facility], [address], [place], [place], [address] , [place] tel: [phone] [facility] Kanchan 6 mo appt (chief complaint)Chr onic Conditions (chief complaint) Hypertensive chronic kidney disease with stage 1 through stage 4 chronic kidney disease, or unspecified chronic kidney diseaseChroni c kidney disease, stage 3aHypo-osmola lity and hyponatremiaA therosclerosi s of aortaSecondar y hyperparathyr oidism, not elsewhere classifiedVit agosto D deficiency, unspecified 5 Posadasheree Goode. [address] [place] [address], [id number], [place]. tel:[phone] Referring Provider: Nisha King, [address] [place] [address], [address] . tel:[phone] [facility], [address], [place], [place], [address] , [place] tel: [phone] [facility] HypokalemiaCh ronic kidney disease, stage 3aDysuriaLeuk ocytes in urine 5 Shahbaz Cameron. [address] [place] [address], [id number], [place]. tel:[phone] Referring Provider: Nisha King, [address] [place] [address], [address] . tel:[phone] [facility], [address], [place], [place], [address] , [place] tel: [phone] [facility] No Information 5 Estelle Madera. [address] [address], [place], [place], [id number], . [phone] Referring Provider: Nisha King, [address] [place] [address], [address] . tel:[phone] [facility], [address], [place], [place], [address] , [place] tel: [phone] [facility] No Information 4 Shahbaz Nisha. [address] [place] [address], [id number], [place]. tel:[phone] [facility], [address], [place], [place], [address] , tel: [phone] [facility] No Information 4 Shahbazrebecca Cameron. [address] [place] [address], [id number], [place]. tel:[phone] [facility], [address], [place], [address] , [place] tel: [phone] [facility] DysuriaLeukoc ytes in urine 4 Shahbaz Cameron. [address] [place] [address], [id number], [place]. tel:[phone] Referring Provider: Nisha King, [address] [place] [address], [address] . tel:[phone] [facility], [address], [place], [place], [address] , [place] tel: [phone] [facility] No Information 4 Estellemarianne Kurtzn. [address], [id number], . tel:[phone] Referring Provider: Rupa Posada, [address] [place] [address], [address] . tel:[phone] OFFICE AWAWY-KUK-WXE SPARKLE [facility], [address], [place], [place], [address] , [place] tel: [phone] [facility] 6 month check up (chief complaint)Chr onic Conditions (chief complaint)chr onic conditions (chief complaint) Body mass index [BMI] 19.9 or less, adultHyperten sive chronic kidney disease with stage 1 through stage 4 chronic kidney disease, or unspecified chronic kidney diseaseChroni c kidney disease, stage 3aHypo-osmola lity and hyponatremiaS econdary hyperparathyr oidism, not elsewhere classifiedDia phragmatic hernia without obstruction or gangreneHypok alemiaRight thigh pain 4 Swetha Goode. [address] [place] [address], [id number], [place]. tel:[phone] Referring Provider: Nisha King, [address] [place] [address], [address] . tel:[phone] [facility], [address], [place], [place], [address] , [place] tel: [phone] [facility] No Information 4 Shahbaz Cameron. [address] [place] [address], [id number], [place]. tel:[phone] OFFICE AKOGM-XQQ-PJC ANDED [facility], [address], [place], [place], [address] , [place] tel: [phone] [facility] ER f/u (chief complaint) Hypertensive chronic kidney disease with stage 1 through stage 4 chronic kidney disease, or unspecified chronic kidney diseaseChroni c kidney disease, stage 3aUrinary tract infection, site not specifiedAcut e nonintractabl e headache, unspecified headache type 4 Arely Licea. [address] [place] [address], [address], [place]. tel:[phone] Referring Provider: Nisha King, [address] [place] [address], [address] . tel:[phone] [facility], [address], [place], [place], [address] , [place] tel: [phone] [facility] No Information [address] [address] [facility], [address] [address], [place], [place], [address], [place]. tel:[phone] Referring Provider: Rupa Posada, [address] [place] [address], [address] . tel:[phone] OFFICE WDVCP-DRW-BNS SPARKLE [facility], [address], [place], [place], [address] , tel: [phone] [facility] Kanchan Chronic Conditions (chief complaint)chr onic conditions (chief complaint) Body mass index [BMI] 19.9 or less, adultHyperten sive chronic kidney disease with stage 1 through stage 4 chronic kidney disease, or unspecified chronic kidney diseaseChroni c kidney disease, stage 3aAtheroscler osis of aortaUnspecif ied protein-calor ie malnutritionD iaphragmatic hernia without obstruction or gangreneUrina ry tract infection, site not specifiedHypo -osmolality and hyponatremiaV itamin D deficiency, unspecifiedSe condary hyperparathyr oidism, not elsewhere classifiedLeu kocytes in urine 4 Swetha Goode. [address] [place] [address], [id number], [place]. tel:[phone] Referring Provider: Nisha King, [address] [place] [address], [address] . tel:[phone] [facility], [address], [place], [place], [address] , tel: [phone] [facility] Kanchan DysuriaLeukoc ytes in urine 4 Shahbaz Cameron. [address] [place] [address], [id number], [place]. [phone] Referring Provider: Nisha King, [address] [place] [address], [address] . tel:[phone] [facility], [address], [place], [place], [address] , tel: [phone] [facility] Kanchan Burning with urinationLeuk ocytes in urineIncrease d urinary frequency 4 Shahbaz Cameron. [address] [place] [address], [id number], [place]. tel:[phone] Referring Provider: Nisha King, [address] [place] [address], [address] . tel:[phone] [facility], [address], [place], [place], [address] , [place] tel: [phone] [facility] DysuriaLeukoc ytes in urine 3 Shahbaz Cameron. [address] [place] [address], [id number], [place]. tel:[phone] Referring Provider: Nisha King, [address] [place] [address], [address] . tel:[phone] OFFICE FEIPD-ZTF-THU IMAL [facility], [address], [place], [place], [address] , [place] tel: [phone] [facility] acute visit (chief complaint) DysuriaOther abnormal findings in urine 3 Shahbaz Cameron. [address] [place] [address], [id number], [place]. tel:[phone] Referring Provider: Nisha King, [address] [place] [address], [address] . tel:[phone] [facility], [address], [place], [place], [address] , [place] tel: [phone] [facility] No Information 3 Estelle Madera. [address] [place] [address], [id number], [place]. tel:[phone] Referring Provider: Nisha King, [address] [place] [address], [address] . tel:[phone] OFFICE CZXGY-ZTP-ZVD SPARKLE [facility], [address], [place], [place], [address] , [place] tel: [phone] [facility] 6 month appt (chief complaint)Oth er (chief complaint)chr onic conditions (chief complaint)Chr onic Conditions (chief complaint) Hypertensive chronic kidney disease with stage 1 through stage 4 chronic kidney disease, or unspecified chronic kidney diseaseChroni c kidney disease, stage 3aUnspecified protein-calor ie malnutritionD iaphragmatic hernia without obstruction or gangreneUrina ry tract infection, site not specifiedSeco ndary hyperparathyr oidism, not elsewhere classifiedAth erosclerosis of aorta 3 Shahbaz Cameron. [address] [place] [address], [id number], [place]. tel:[phone] Referring Provider: Nisha King, [address] [place] [address], [address] . tel:[phone] OFFICE AITSC-QZM-OTF SPARKLE [facility], [address], [place], [place], [address] , [place] tel: [phone] [facility] Er F/u (chief complaint)Chr onic Conditions (chief complaint) Hypertensive chronic kidney disease with stage 1 through stage 4 chronic kidney disease, or unspecified chronic kidney diseaseChroni c kidney disease, stage 3aHypo-osmola lity and hyponatremiaD iaphragmatic hernia without obstruction or gangreneHisto ry of UTIImpaired skin integrityUnsp ecified protein-calor ie malnutrition 3 Arely Licea. [address] [place] [address], [address], [place]. tel:[phone] Referring Provider: Nisha King, [address] [place] [address], [address] . tel:[phone] [facility], [address], [place], [place], [address] , [place] [phone] [facility] No Information [address] [facility], [address], [id number], [place]. tel:[phone] Referring Provider: Nisha King, [address] [place] [address], [address] . tel:[phone] OFFICE CECIP-ZNL-XNU SPARKLE [facility], [address], [place], [place], [address] , tel: [phone] [facility] Patient encounter (chief complaint)Chr onic Conditions (chief complaint) Leukocytes in urineHyperten sive chronic kidney disease with stage 1 through stage 4 chronic kidney disease, or unspecified chronic kidney diseaseChroni c kidney disease, stage 3aHypo-osmola lity and hyponatremiaD iaphragmatic hernia without obstruction or gangreneDysur ia 3 Shahbaz Cameron. [address] [place] [address], [id number], [place]. tel:[phone] Referring Provider: Nisha King, [address] [place] [address], [address] . tel:[phone] [facility], [address], [place], [place], [address] , tel: [phone] [facility] No Information 3 Estelle Madera. [address] [place] [address], [id number], . tel:[phone] Referring Provider: Vinayak Mcgee, [address] [place] [address], [address]. tel:[phone] Transitional Care- First 7 Days Of Discharge [facility], [address], [place], [place], [address] , tel: [phone] [facility] ER f/u (chief complaint) Diaphragmatic hernia without obstruction or gangreneHyper tensive chronic kidney disease with stage 1 through stage 4 chronic kidney disease, or unspecified chronic kidney diseaseChroni c kidney disease, stage 3aHypo-osmola lity and hyponatremiaU nspecified protein-calor ie malnutritionH ypokalemia 3 Arely Licea. [address] [place] [address], [address], [place]. tel:[phone] Referring Provider: Nisha King, [address] [place] [address], [address] . tel:[phone] Transitional Care- First 7 Days Of Discharge [facility], [address], [place], [place], [address] , [place] tel: [phone] [facility] Follow-Up (chief complaint)Chr onic Conditions (chief complaint) Hypertensive chronic kidney disease with stage 1 through stage 4 chronic kidney disease, or unspecified chronic kidney diseaseChroni c kidney disease, stage 3aDiaphragmat ic hernia without obstruction or gangreneHypok alemiaHistory of UTIUnspecifie d protein-calor ie malnutrition 3 Arely Licea. [address] [place] [address], [address], . tel:[phone] Referring Provider: Nisha King, [address] [place] [address], [address] . tel:[phone] [facility], [address], [place], [place], [address] , [place] tel: [phone] [facility] No Information 3 Estelle Madera. [address] [place] [address], [id number], . tel:[phone] Referring Provider: Nisha King, [address] [place] [address], [address] . tel:[phone] OFFICE PPOZU-LSV-RFH SPARKLE [facility], [address], [place], [place], [address] , [place] tel: [phone] [facility] 5 month appt (chief complaint)Oth er (chief complaint)Chr onic Conditions (chief complaint) Hypertensive chronic kidney disease with stage 1 through stage 4 chronic kidney disease, or unspecified chronic kidney diseaseChroni c kidney disease, stage 3aDiaphragmat ic hernia without obstruction or gangreneSpina l stenosis, lumbar region without neurogenic claudicationS econdary hyperparathyr oidism, not elsewhere classifiedVit agosto D deficiency, unspecifiedUn specified protein-calor ie malnutritionH ypo-osmolalit y and hyponatremia 3 Shabhaz Cameron. [address] [place] [address], [id number], . tel:[phone] Referring Provider: Nisha King, [address] [place] [address], [address] . tel:[phone] OFFICE KVRVG-UCN-GJM [facility], [address], [place], [place], [address] , tel: [phone] [facility] Chronic Conditions (chief complaint)oth er (chief complaint) Body mass index [BMI] 20.0-20.9, adultHyponatr emiaUnspecifi ed protein-calor ie malnutritionS asa stenosis, lumbar region without neurogenic claudicationH ypertensive chronic kidney disease with stage 1 through stage 4 chronic kidney disease, or unspecified chronic kidney diseaseChroni c kidney disease, stage 3aDiaphragmat ic hernia without obstruction or gangreneLeuko cytes in urine 2 Swetha Goode. [address] [place] [address], [id number], . tel:[phone] Referring Provider: Nisha King, [address] [place] [address], [address] . tel:[phone] [facility], [address], [place], [place], [address] , [place] tel: [phone] [facility] Leukocytes in urine 2 Shahbaz Cameron. [address] [place] [address], [id number], [place]. tel:[phone] Referring Provider: Nisha King, [address] [place] [address], [address] . tel:[phone] OFFICE IRSIS-KBH-SBK [facility], [address], [place], [place], [address] , tel: [phone] [facility] Diaphragmatic hernia without obstruction or gangrene (chief complaint)Oth er (chief complaint)Chr onic Conditions (chief complaint) Diaphragmatic hernia without obstruction or gangreneHypon atremiaUnspec ified protein-calor ie malnutritionH ypertensive chronic kidney disease with stage 1 through stage 4 chronic kidney disease, or unspecified chronic kidney diseaseSpinal stenosis, lumbar region without neurogenic claudicationC hronic kidney disease, stage 3aSecondary hyperparathyr oidismVitamin D deficiency, unspecifiedLe ukocytes in urine 2 Shahbaz Cameron. [address] [place] [address], [id number], [place]. tel:[phone] Referring Provider: Nisha King, [address] [place] [address], [address] . tel:[phone] [facility], [address], [place], [place], [address] , tel:[phone] [facility] No Information Shahbaz Cameron. [address] [place] [address], [id number], . tel:[phone] OFFICE DMNUU-NVL-OCU [facility], [address], [place], [place], [address] , tel:[phone] [facility] Chronic Conditions (chief complaint) Body mass index [BMI] 21.0-21.9, adultDiaphrag matic hernia without obstruction or gangreneHypon atremia 1 Swetha Goode. [address] [place] [address], [id number], [place]. tel:[phone] Referring Provider: Nisha King, [address] [place] [address], [address] . tel:[phone] [facility], [address], [place], [place], [address] , tel: [phone] [facility] Chronic Conditions (chief complaint) Hypertensive chronic kidney disease with stage 1 through stage 4 chronic kidney disease, or unspecified chronic kidney diseaseChroni c kidney disease, stage 3aDiaphragmat ic hernia without obstruction or gangreneSpina l stenosis, lumbar region without neurogenic claudicationU nspecified protein-calor ie malnutrition 1 Shahbaz Cameron. [address] [place] [address], [id number], . tel:[phone] Referring Provider: Nisha King, [address] [place] [address], [address] . tel:[phone] [facility], [address], [place], [place], [address] , tel: [phone] [facility] Hypertensive chronic kidney disease with stage 1 through stage 4 chronic kidney disease, or unspecified chronic kidney diseaseEssent ial (primary) hypertension 1 Shahbaz Cameron. [address] [place] [address], [id number], [place]. tel:[phone] Referring Provider: Nisha King, [address] [place] [address], [address] . tel:[phone] OFFICE JXDCO-ISG-BGJ ANDED [facility], [address], [place], [place], [address] , tel: [phone] [facility] Chronic Conditions (chief complaint) Diaphragmatic hernia without obstruction or gangreneBody mass index (BMI) 22.0-22.9, adultSpinal stenosis, lumbar region without neurogenic claudicationH ypertensive chronic kidney disease with stage 1 through stage 4 chronic kidney disease, or unspecified chronic kidney diseaseChroni c kidney disease, stage 3a Jul- 1 Magaly Kelley. [address] [place] [address], [id number], . tel:[phone] Referring Provider: Nisha King, [address] [place] [address], [address] . tel:[phone] OFFICE DLAMR-CAN-CRW [facility], [address], [place], [place], [address] , tel: [phone] [facility] Chronic Conditions (chief complaint) Hypertensive chronic kidney disease with stage 1 through stage 4 chronic kidney disease, or unspecified chronic kidney diseaseChroni c kidney disease, stage 3aHypokalemia Spinal stenosis, lumbar region without neurogenic claudicationD iaphragmatic hernia without obstruction or gangreneUrina ry tract infection, site not specifiedLeuk ocytes in urine Sep-0 1 Shahbaz Cameron. [address] [place] [address], [id number], . tel:[phone] Referring Provider: Nisha King, [address] [place] [address], [address] . tel:[phone] OFFICE PRYHF-KQB-HAQ [facility], [address], [place], [place], [address] , tel: [phone] [facility] Chronic Conditions (chief complaint)ER f/u (chief complaint) Body mass index (BMI) 23.0-23.9, adultHyperten sive chronic kidney disease with stage 1 through stage 4 chronic kidney disease, or unspecified chronic kidney diseaseHypoka lemiaSecondar y hyperparathyr oidismHiatal herniaUrinary tract infection without hematuria, site unspecified Mar- 1 Magaly Kelley. [address] [place] [address], [id number], . tel:[phone] Referring Provider: Nisha King, [address] [place] [address], [address] . tel:[phone] OFFICE AZNSN-BUB-KSC [facility], [address], [place], [place], [address] , tel: [phone] [facility] Chronic Conditions (chief complaint)oth er (chief complaint) Hypertensive chronic kidney disease with stage 1 through stage 4 chronic kidney disease, or unspecified chronic kidney diseaseSpinal stenosis, lumbar region without neurogenic claudicationC hronic kidney disease, stage 3 (moderate)Vit agosto D deficiency, unspecified 0 Magaly Kelley. [address] [place] [address], [id number], . tel:[phone] Referring Provider: Nisha King, [address] [place] [address], [address] . tel:[phone] OFFICE KVXWO-IKY-DNZ [facility], [address], [place], [place], [address] , [place] tel: [phone] [facility] 6 month follow up (chief complaint)Chr onic Conditions (chief complaint) Hypertensive chronic kidney disease with stage 1 through stage 4 chronic kidney disease, or unspecified chronic kidney diseaseChroni c kidney disease, stage 3 (moderate)Spi nal stenosis, lumbar region without neurogenic claudication [facility]. [address] [place] [address], [address], . tel:[phone] Referring Provider: Nisha King, [address] [place] [address], [address] . tel:[phone] OFFICE GBTAR-ZWN-CEG [facility], [address], [place], [place], [address] , [place] tel: [phone] [facility] Chronic Conditions (chief complaint) Body mass index (BMI) 23.0-23.9, adultHyperten sive renal disease, stage 1-4 or unspecified chronic kidney diseaseCKD (chronic kidney disease), stage IIIVitamin D deficiency, unspecifiedSS , lumbar regionHypokal emia [address] [facility]. [address] [place] [address], [address], . [phone] Referring Provider: Nisha King, [address] [place] [address], [address] . tel:[phone] [facility], [address], [place], [place], [address] , tel: [phone] [facility] Encounter for general adult medical examination without abnormal findings 8 Swetha Goode. [address] [place] [address], [id number], . tel:[phone] Referring Provider: Nisha King, [address] [place] [address], [address] . tel:[phone] [facility], [address], [place], [place], [address] , [place] tel: [phone] [facility] Nail fungus 8 Shahbaz Cameron. [address] [place] [address], [id number], [place]. tel:[phone] [facility], [address], [place], [place], [address] , tel: [phone] [facility] chronic conditions (chief complaint) Hypertensive renal disease, stage 1-4 or unspecified chronic kidney diseaseCKD (chronic kidney disease), stage IIIVitamin D deficiency, unspecifiedSe condary hyperparathyr oidismItchy, watery, and red eyeSpinal stenosis of lumbar region, unspecified whether neurogenic claudication present 8 Arelyyolanda Presleyvolodymyr. [address] [place] [address], [address], . tel:[phone] Referring Provider: Nisha King, [address] [place] [address], [address] . tel:[phone] [facility], [address], [place], [place], [address] , [place] tel: [phone] [facility] Body mass index (BMI) 22.0-22.9, adultVitamin D deficiency, unspecifiedHy pertensive renal disease, stage 1-4 or unspecified chronic kidney diseaseCKD (chronic kidney disease), stage IIISecondary hyperparathyr oidismSpinal stenosis of lumbar region [facility]. [address] [place] [address], [place], [address], [place]. tel:[phone] Referring Provider: Nisha King, [address] [place] [address], [place], [address] . tel:[phone] [facility], [address], [place], [place], [address] , tel: [phone] [facility] Essential (primary) hypertension Shahbaz Cameron. [address] [place] [address], [place], [place], [id number], [place]. tel:[phone] Referring Provider: Nisha King, [address] [place] [address], [place], [address] . tel:[phone] [facility], [address], [place], [place], [address] , tel: [phone] [facility] Diarrhea, unspecified typeInfection of nailbed of toe of left footRecent urinary tract infectionEsse ntial (primary) hypertension [facility]. [address] [place] [address], [place], [address], [place]. tel: [phone] Referring Provider: Nisha King, [address] [place] [address], [place], [address] . tel: [facility], [address], [place], [place], [address] , tel: [phone] [facility] Diarrhea, unspecified type 6 Shahbaz Cameron. [address] [place] [address], [place], [place], [address], [place]. tel:[phone] Referring Provider: Nisha King, [address] [place] [address], [place], [address] . tel:[phone] [facility], [address], [place], [place], [address] , tel: [phone] [facility] Essential (primary) hypertensionV itamin D deficiency, unspecifiedSp inal stenosis of lumbar region 6 Shahbaz Cameron. [address] [place] [address], [id number], [place]. tel:[phone] Referring Provider: Nisha King, [address] [place] [address], [place], [address] . tel: [facility], [address], [place], [place], [address] , [place] tel: [phone] [facility] Serum calcium elevated 8 5 Shahbaz Cameron. [address] [place] [address], [id number], [place]. tel: [phone] [facility], [address], [place], [place], [address] , tel: [phone] [facility] Encounter for immunizationV itamin D deficiency, unspecifiedEs sential (primary) hypertension 5 Shahbaz Cameron. [address] [place] [address], [id number], [place]. tel:[phone] Referring Provider: Nisha King, [address] [place] [address], [place], [address] . tel:[phone] [facility], [address], [place], [place], [address] , tel: [phone] [facility] HTN (hypertension )Vitamin D deficiencyALL ERGIC RHINITIS NOS 5 Shahbaz Cameron. [address] [place] [address], [id number], [place]. tel:[phone] Referring Provider: Nisha King, [address] [place] [address], [address] . tel:[phone] [facility], [address], [place], [place], [address] , tel: [phone] [facility] No Information 4 Shahbaz Cameron. [address] [place] [address], [id number], . tel:[phone] Referring Provider: Nisha King, [address] [place] [address], [address] . tel:[phone] [facility], [address], [place], [place], [address] , tel: [phone] [facility] BENIGN HYPERTENSIOND ERMATITIS NOSBilateral lower extremity edema May- 5-201 4 Shahbaz Cameron. [address] [place] [address], [id number], . tel:[phone] Referring Provider: Nisha King, [address] [place] [address], [address] . tel:[phone] [facility], [address], [place], [place], [address] , tel:[phone] [facility] Dysuria Dec-2 6-201 3 Shahbaz Cameron. [address] [place] [address], [id number], . tel:[phone] Referring Provider: Nisha King, [address] [place] [address], [address] . tel:[phone] [facility], [address], [place], [place], [address] , tel:[phone] [facility] Conjunctiviti sHypertension Constipation, unspecified Dec-0 3-201 3 Shahbaz Cameron. [address] [place] [address], [id number], [place]. tel:[phone] Referring Provider: Nisha King, [address] [place] [address], [address] . tel:[phone] [facility], [address], [place], [place], [address] , tel: [phone] [facility] Uncontrolled hypertensionO steoarthrosis , generalized, involving unspecified site Nov-0 8-201 3 Shahbaz Cameron. [address] [place] [address], [id number], . tel:[phone] Referring Provider: Nisha King, [address] [place] [address], [address] . tel:[phone] [facility], [address], [place], [place], [address] , tel: [phone] [facility] No Information 6 3 Shahbaz Cameron. [address] [place] [address], [id number], [place]. tel: [phone] [facility], [address], [place], [place], [address] , tel: [phone] [facility] Diarrhea 3 Shahbaz Cameron. [address] [place] [address], [id number], . tel:[phone] Referring Provider: Nisha King, [address] [place] [address], [address] . tel:[phone] [facility], [address], [place], [place], [address] , [place] tel: [phone] [facility] Spinal stenosis of lumbar region at multiple levelLeft foot dropHypertens ionOsteoarthr osis, generalized, involving unspecified siteUnspecifi ed vitamin d deficiency Feb-2 3201 3 Shahbaz Cameron. [address] [place] [address], [id number], [place]. tel:[phone] Referring Provider: Nisha King, [address] [place] [address], [address] . tel:[phone] [facility], [address], [place], [place], [address] , tel: [phone] [facility] BENIGN HYPERTENSIONG ENERAL OSTEOARTHROSI SVitamin d deficiencyPos therpetic neuralgiaOste oporosis, unspecified 2 Shahbaz Cameron. [address] [facility], [place], [place], [address], [place]. tel:[phone] Referring Provider: Fabio Sexton, [address] [facility] [address], [place], [address] . tel:[phone] [facility], [address], [place], [place], [address] , [place] tel: [phone] [facility] HYPERTENSION NOSBACKACHE NOSOsteoporos is, unspecified 2 Trame Fabio. [address], [place], [place], [address]. tel: [phone] Referring Provider: Fabio Sexton, [address] [facility] [address], [place], [address] . tel:[phone] [facility], [address], [place], [place], [address] , [place] tel: [phone] [facility] BACKACHE NOSHYPERTENSI ON NOSBONE & CARTILAGE DIS NOSLONG-TERM USE MEDS NEC 1 Trame Cambridge. [address] [facility] [address], [place], [place], [address]. tel: [phone] [facility], [address], [place], [place], [address] , [place] tel: [phone] [facility] ACUTE SINUSITIS NOSGENERAL OSTEOARTHROSI S 0 Trame Fabio. [address] [facility] [address], [place], [place], [address]. tel: [phone] [facility], [address], [place], [place], [address] , [place] tel: [phone] [facility] IRRITABLE BOWEL SYNDROME Jan- 3-201 0 Trame Fabio. [address] [facility] [address], [place], [place], [address]. tel: [phone] [facility], [address], [place], [place], [address] , [place] tel:[phone] [facility] VACCIN FOR INFLUENZA 0 1-200 9 Trame Cambridge. [address], [place], [place], [address]. tel: [phone] [facility], [address], [place], [place], [address] , [place] tel: [phone] [facility] SYEDA HY KID W CR KID I-IVCHR KIDNEY DIS STAGE III 2 4-200 9 Trame Fabio. [address], [place], [place], [address]. tel: [phone] [facility], [address], [place], [place], [address] , [place] tel: [phone] [facility] No Information 1-200 9 Carthagee Cambridge. [address] [facility] [address], [place], [place], [address]. tel: [phone] [facility] [employer] [facility], [address], [place], [place], [address] , [place] tel: [phone] [facility] DYSURIA 2 3-200 9 [facility] [place]. [address] [facility] [address], [place], [place], [address]. tel: [phone] [facility] [employer] [facility], [address], [place], [place], [address] , [place] tel: [phone] [facility] BENIGN HYPERTENSION 6-200 9 Carthagee Cambridge. [address] [facility] [address], [place], [place], [address]. tel: [phone] [facility], [address], [place], [address] , [place] tel: [phone] [facility] URIN TRACT INFECTION NOS Dec-0 2-200 8 Trame Fabio. [address], [place], [place], [address]. tel: [phone] [facility], [address], [place], [place], [address] , [place] tel:[phone] [facility] H ZOSTER NERV SYST NEC Nov-2 0-200 8 Trame Cambridge. [address] [facility] [address], [place], [place], [address]. tel: [phone] [facility], [address], [place], [place], [address] , [place] tel: [phone] [facility] HERPES ZOSTER NOS Aug- 7-200 8 Trame Fabio. [address] [facility] [address], [place], [place], [address]. tel: [phone] [facility], [address], [place], [place], [address] , [place] tel: [phone] [facility] SYNCOPE AND COLLAPSE May- 5-200 7 Trame Fabio. [address] [facility] [address], [place], [place], [address]. tel: [phone] [facility], [address], [place], [place], [address] , [place] tel:[phone] [facility] HYPOTHYROIDIS M NOSGENERAL OSTEOARTHROSI S Nov-2 8-200 6 Trame Fabio. [address] [facility] [address], [place], [place], [address]. tel: [phone] [facility], [address], [place], [place], [address] , [place] tel: [phone] [facility] EDEMA Sep-2 3-200 5 Trame Cambridge. [address] [facility] [address], [place], [place], [address]. tel: [phone] [facility], [address], [place], [place], [address] , [place] tel:[phone] [facility] SPINAL STENOSIS-LUMB AR Benjy-2 2-200 5 Trame Fabio. [address] [facility] [address], [place], [place], [address]. tel: [phone] [facility], [address], [place], [place], [address] , [place] tel: [phone] [facility] CONSTIPATION NOS May-1 8-200 5 Trame Fabio. [address] [facility], [address], [place], [place], [address]. tel: [phone] [facility], [address], [place], [place], [address] , [place] tel: [phone] [facility] ABDMNAL PAIN GENERALIZED May-0 6-200 4 Conversion Doctor. [address] [facility], [place], [address], [place]. [facility], [address], [place], [place], [address] , [place] tel: [phone] [facility] DIARRHEA May-0 6-200 4 Trame Cambridge. [address] [facility], [address], [place], [place], [address]. tel: [phone] [facility], [address], [place], [place], [address] , [place] tel: [phone] [facility] VACCIN FOR INFLUENZAND VAC STRPTCS PNEUMNI B Oct-1 4-200 3 Trame Cambridge. [address] [facility], [address], [place], [place], [address]. tel: [phone] [facility], [address], [place], [place], [address] , [place] tel: [phone] [facility] ALLERGIC RHINITIS NOS Apr-1 5-200 3 Trame Fabio. [address] [facility], [address], [place], [place], [address]. tel: [phone] [facility], [address], [place], [place], [address] , [place] tel:[phone] [facility] DERMATITIS NOS Sep-2 5-200 1 Trame Cambridge. [address] [facility] [address], [place], [place], [address]. tel: [phone] [facility], [address], [place], [place], [address] , [place] tel: [phone] [facility] SCREEN MAL NEOP-RECTUM 6-200 0 Conversion Doctor. [address] [facility], [place], [address], [place]. [facility], [address], [place], [place], [address] , tel: [phone] [facility] ENLARGEMENT LYMPH NODES 6200 0 Tramlani Mccarthy. [address] [facility], [address], [place], [place], [address]. tel:[phone] Family History Family Member Type Diagnosis Age At Onset Father Problem (finding) Carcinoma of k idney, unspecified laterality Mother Problem (finding) Father Problem (finding) Daughter Problem (finding) Daughter Problem (finding) Spinal stenosi s, unspecified spinal region Daughter Problem (finding) Essential hypertension Mother Problem (finding) Carcinoma of k idney, unspecified laterality Immunizations Vaccine Date Status Comments Fluzone High-Dose Trivalent, preservative free administered Source: New Immuniza tion Record Pneumococcal conjugate PCV20 administered Source: New Immunization Record Pfizer (Diluent Reconstitute d) COVID19 Vaccine, 0.3mL per dose, 2 doses, administered 21 days apart administered Note: Dina smith ; Source: Other Provider Fluzone High-Dose, high dose , preservative free administered Source: New Immuniza tion Record Pfizer-BioNTech COVID19 Vaccine, 0.3mL per dose, 2 doses, administered 21 days apart administered Note: DARIAN ; Source: Other Provider Pfizer-BioNTech COVID19 Vaccine, 0.3mL per dose, 2 doses, administered 21 days apart administered Note: DARIAN ; Source: Other Provider Fluzone High-Dose, high dose , preservative free administered Source: New Immuniza tion Record influenza, injectable, quadrivalent, (3 years or older) administered Source: New Immuniza tion Record Pneumococcal conjugate PCV 13 administere d Source: New Immunization Record Influenza, injectable, quadrivalent, preservative free, 3 yrs or older administered Source: New Immuniz ation Record Fluzone administered Source: New Imm unization Record Fluzone administered Source: New Imm unization Record 35335 - Influenza administered Source: So urce Unspecified 08589 - Influenza administered Source: So urce Unspecified 61580 - Influenza administered Source: So urce Unspecified 32482 - Influenza administered Source: So urce Unspecified 23850 - Influenza administered Source: So urce Unspecified 31070 - Influenza administered Source: So urce Unspecified 04966 - Pneumococcal_PPV23 administered S ource: Source Unspecified 58217 - Influenza administered Source: So urce Unspecified 70889 - Influenza administered Source: So urce Unspecified 36163 - Influenza administered Source: So urce Unspecified 43574 - Influenza administered Source: So urce Unspecified Payers Payer name Insurance type Covered libertarian ID Authoriza tion(s) [place] [id number] [place] [id number] [place] [id number] [place] [id number] [place] [id number] [place] [id number] [place] [id number] [place] [id number] [id number] [place] [id number] [place] [id number] [place] [id number] Social History Type Description Quantity Date Captured Comments Sex Female Smoking Status No Information Gender Identity Female Chief Complaint And Reason For Visit No Information Reason For Referral Reason For Referral No Information Plan Of Treatment Date Type Action Status Goal Dietary manageme nt education, guidance, and counseling completed Goal Dietary manageme nt education, guidance, and counseling completed Goal Dietary manageme nt education, guidance, and counseling completed Goal Dietary manageme nt education, guidance, and counseling completed Goal Dietary manageme nt education, guidance, and counseling completed Goal Dietary manageme nt education, guidance, and counseling completed Goal Dietary manageme nt education, guidance, and counseling completed Referral Referred To: Amos Huston MD [address] [place], [address] [id number] Ordered: Referrals: Gastroenterology. Amos Huston MD. Evaluation/diagnostic/treatment - Level 3 Appointment date/timeframe: 10/10/2023 ordered Appointment Orquidea Degroot BOOKED Patient Education Hiatal Hernia: Care Ins tructions completed History Of Present Illness Encounter Date Complaint History Of Prese nt Illness Chronic Conditions *See Chronic Conditions HPI 6 mo appt 6 mo appt:denies having any problemsPast appt: n/aFuture appt: n/aAdvance directive: doesn't need forms chronic conditions *See Chronic Conditions HPI Chronic Conditions *See Chronic Conditions HPI 6 month check up The patient rep orts cramping in her right upper thigh with getting off the toilet.She does have a leg length discrepancy.Daughter looking into orthotics. ER f/u Patient is here for an emergency room follow-up. She presented to [facility] on December with headache and abd discomfort shortly after starting macrobid. She had a negative head CT. She was negative for COVID, flu and RSV. She was given a migraine cocktail and her symptoms improved. Her blood pressure was elevated at home and was 152/66 in the ER.She feels headache and abd pain she had on day of ER visit was related to macrobid. She also did not tolerate Cipro due to swallowing issues. Antibiotic changed to Keflex on . Urine culture from January 01 showing E. coli susceptible to nitrofurantoin, Cipro, cefazolin in the form of Keflex.she is feeling better today.urine normalBP normal today.CKD3- recently checked through labs and stable. Avoids NSAIDs chronic conditions *See Chronic Conditions HPI Chronic Conditions *See Chronic Conditions HPI acute visit isaktJosefina stat es pt has c/o x 3 dayspain w/urination increased frequencyfatigued diarrhea stomach hurts - pt reports its from gas 1 small episode of vomiting 3 days ago denieslower back fever decrease/loss shamir dopt states pt has not taken anything for the sxSpoke with Dr. Hartmann. She stated she will prescribe an antibiotic for a UTI and send a culture out. Pt agreed to this. Pt and her daughter were advised to call our office with new or worsening symptoms while waiting for urine culture results most likely on Saturday. 6 month appt pt presents toda y w/ daughter, Josefina Colón, for her 6 month appt. -CKDpt drinking plenty of water. pt verbalized she drinks about 5 glasses of water a day.pt avoiding NSAIDs like ibuprofen, advil, aleve, motrin. -Hypertensionpt denies headaches, dizziness, nausea, lightheadedness, chest pain, palpitationspt monitor BP at homept verbalized she is compliant w/ medication Other pt due for:n/aRe nils Rojas visits:n/aFuture appt:n/aVaccinations due:TD/TDAP - pt has not received recentlySHINGRIX - pt has not receivedOutstanding referrals:GI - Dr Amos Huston - pt verbalized she has not seen nor has appt scheduled yet, but will call to scheduled appt. confirmed w/ pt's daughter Dr Huston's info.Questions:pt verbalized she would like to have her urine checked due to history of frequent UTIs. pt reports no UTI Sx. chronic conditions *See Chronic Conditions HPI Chronic Conditions *See Chronic Conditions HPI Er F/u Patient is with daughter Josefina.She went to [facility] on June 12 with nausea and vomiting. She has a known hiatal hernia and hyponatremia. (She used to be on salt tabs but recently discontinued per daughter request at last OV.) She was found to have a urinary tract infection. Her sodium was 130. White blood cell count elevated at 11.5. She was treated with Keflex and given Zofran. She is under the care of JETT Benites in [place] who recommended she have a barium swallow. However in fear that this would cause constipation the procedure was not scheduled.Pt noticed that she has drainage in her throat that has not been as bad they last few days.Pt was prescribed the Cephalexin for having a Urinary Tract infection and states that she is feeling way better.Pt daughter noticed that she has a redness on her right buttock that has been there for about 2 weeks. Was advices to take Moisture Barrier Ont. Thinks she may have scratched during wiping. Pt states that she is having a good appetite. She is eating vegetables and she cut out soda. Daughter is also smashing up some harder foods that she is not able to eat. She is also trying to drink fruit smoothies since with the hernia she does not know exactly what triggers it. Past Appt- GI Dr. Huston , pt did not get the Upper GI with barium that Dr. Huston recommend because she started doing better. Chronic Conditions *See Chronic Conditions HPI Patient encounter Chief complain t: constipation and stop the sodium chloride.pt. was having constipations but she having bowel movements now because she start taking MiraLax.They want to talk to you about the Sodium Chloride and think that medicine is making her constipation worse and making her sick. Pt. is leaving a urine specimen , she think she has a UTI. Future appointmentsDr. Huston on May 02, 2023 Chronic Conditions *See Chronic Conditions HPI ER f/u Patient presents today with daughter for an emergency room follow-up. She went to [facility] on March 20 with chief complaint of epigastric pain. She was previously admitted to that hospital in February with nausea, vomiting and abdominal pain. CT at that time showing large hiatal hernia with normal right upper quadrant ultrasound. She was started on famotidine and pantoprazole. She was also treated for a urinary tract infection at that time.In the emergency room she was complaining that her symptoms improve after belching and that it feels like food gets stuck at the end of her esophagus. She has not seen GI. She had mild leukocytosis with WBC 10.7. No anemia. Sodium was low at 131 but this is actually not out of the ordinary from her baseline.She had negative troponins. Negative UA.Chest x-ray showing increasing size of the hiatal hernia.They continue the pantoprazole and send in a prescription for nausea medication Zofran to take as needed.She has not had any n/v/d, abd pain, or food getting stuck since going home.ER referred to GI Dr. Aries Huston in [place]. We had mentioned having her see Dr. Miner with [facility]. She would like to think about it.Potassium script clarification- she has been taking 20mEq once a day and script says twice a day.Pt wants to know if she should be taking fiber. Unsure if this was causing gas. Currently taking a teaspoon twice a day. Advised to go down to once a day.She has hypertension and stage III chronic kidney disease.Her blood pressure is controlled on current medication and her kidney function remained stable. She avoids NSAIDs.She has hyponatremia most likely related to decreased p.o. intake and malnutrition.She qualifies for malnutrition due to MNA score of 7 or below. She is down another pound. This is complicated by hiatal hernia. She struggles to find supplements that she can tolerate. Hospital Follow-Up The patient w as seen today for a hospital follow-up visit, after being discharged on 02/21/2023. Details regarding this most recent admission include: Patient is here with daughter for hospital follow-up. She presented to [facility] emergency room on February 19 with nausea and vomiting and mid abdominal pain.She has a history of hiatal hernia, hypertension, CKD 3.CT showing large hiatal hernia with no other acute abdominal abnormality. Right upper quadrant ultrasound also normal. She was placed n.p.o. and was given clear liquids with IV fluids for rehydration. She was given famotidine and Protonix was continued. Lipase slightly elevated at 45. WBCs noted to be elevated at 15.2 with a lactic acid of 2.7. Urine culture was obtained however appeared to be a contaminant. The UA was infectious and patient had been complaining of frequency so she was given cefdinir upon discharge and received 3 doses of IV ceftriaxone. She was discharged home on February 25. Home health was suggested but the patient declined. Chronic Conditions *See Chronic Conditions HPI 5 month appt -GERDpt avoiding fatty, greasy, spicy, acidic food/beverages, and late night eating -CKDpt drinking plenty of water.pt avoiding NSAIDs like ibuprofen, advil, aleve, motrin. -Hypertensionpt denies headaches, dizziness, nausea, lightheadedness, chest pain, palpitationspt does not monitor BP at homept compliant w/ medication Other pt due for:n/aRe cent visits:Podiatry - toe nail trim - Nov 2022Future appt:n/aRecent vaccinations:Flu - pt deniesTD/Tdap - pt denies Shingrix - pt deniesOutstanding referrals:n/aQuestions:TUMS - how many is she supposed to take. Chronic Conditions *See Chronic Conditions [facility] Chronic Conditions *See Chronic Conditions [facility] other Leukocytes were present on urinalysis today.Patient denies urinary symptoms. Other Recent vaccinati ons:pt denies TD/Tdap, ShingrixQuestions:No questions or concerns Diaphragmatic hernia without obstruction or gangrene Weight loss since last OV: 6.8 lbspt compliant w/ nutritional supplements Chronic Conditions *See Chronic Conditions [facility] Chronic Conditions *See Chronic Conditions [facility] Chronic Conditions *See Chronic Conditions [facility] Chronic Conditions *See Chronic Conditions [facility] Chronic Conditions *See Chronic Conditions [facility] Chronic Conditions *See Chronic Conditions [facility] Chronic Conditions ER f/u pt presented for ER f/u date of visit to [facility] 01/15/21c/o epigastric/chest pain radiating to left shoulder with nauseacardiac w/u essentially unremarkableEKG: ST 106CT abd/pelvis : (per note) 9.2cm hiatal hernia containing approximately one third of the stomach which is partially distended. diverticulosis. pt and dtr aware of the foods to avoid to reduce flaresUTI treated with keflex, pt has completed coursecurrently denies cp, palpitations, sob, n/v/d/abd pain, urinary complaints, f/c other This visit was c ompleted via Telehealth due to the restrictions of the COVID-19 pandemic. All issues as below were discussed and addressed but no physical exam was performed unless allowed by visual confirmation on Telehealth. If it was felt that the patient should be evaluated in clinic then they were directed there. Patient verbally consented to visit. Video Time Documentation:Spent 20 minutes with pt face to face and more that 50% of this time was spent in counseling and coordination of care. Chronic Conditions *See Chronic Conditions HPI Chronic Conditions 6 month follow up Chronic Conditions *See Chronic Conditions HPI Chronic Conditions *See Chronic Conditions HPI chronic conditions chronic conditions (comments) Murtaza oates is here with her daughter for scheduled follow-up to discuss chronic conditions. She has hypertensive renal disease. Blood pressure is well-controlled on current medications. She has stage III chronic kidney disease that is stable and monitored through labs. She is on diclofenac. If discuss the risks and benefits of using this medication and will continue to monitor her disease progression. She has secondary hyperparathyroidism. She has had an elevated intact PTH in the past that has since normalized after initiating ergo calcific role. We continue to monitor her intact PTH levels as well as her vitamin D level. She has osteoporosis. She declines a bone density. She was unable to tolerate reclast infusion for her osteoporosis. She takes the diclofenac for spinal stenosis of the lumbar spine. This controlled at present. She has had no falls. She reports itchy and watery eyes. She has used eyedrops in the past but she states the prescription has . We discussed [id number]-cam-[id number] remedies for her to try. Functional Status Date Functional Assessmen t No Information Instructions Date Instruction Additional Infor jocelyn Continue vitamin D supplementati on Related to Vitamin D deficiency, unspecified Your parathyroid is slightly overactive due to your chronic kidney disease.We will continue to monitor this with lab work Related to Secondary hyperparathyroidism, not elsewhere classified This is monitored with labs Rela mimi to Hypo-osmolality and hyponatremia This is hardening of the arteries of your heart found on previous imaging.Blood pressure is well controlled.Continue your medications as prescribed Related to Atherosclerosis of aorta Be sure to stay well hydrated and avoid NSAIDs such as Advil (ibuprofen) and Aleve (naproxen) to prevent further damage to your kidneys.We will check your kidney function again today Related to Chronic kidney disease, stage 3a Blood pressure is el evated today but typically well-controlled.Please check home blood pressure readings and contact us if blood pressure is consistently greater than 150/90.We will check routine labs today.Weight is up today! Keep up the great work!Please call questions or concerns prior to next appointment.Follow-up again in 6 months Related to Hypertensive chronic kidney disease with stage 1 through stage 4 chronic kidney disease, or unspecified chronic kidney disease Disease process Continue your potass ium supplementation Related to Hypokalemia You the pain sounds muscular in nature.You are looking into orthotics.Please call us if this worsens Related to Right thigh pain Keep up the great wo rk with eating!Weight is up since her last visit.I am happy to hear that you are also doing better in regards to swallowing.Please call us if this worsens Related to Diaphragmatic hernia without obstruction or gangrene This is due to your vitamin D deficiency.We will check your parathyroid level again today Related to Secondary hyperparathyroidism, not elsewhere classified We will check your sodium level Related to Hypo-osmolality and hyponatremia Be sure to stay well hydrated and avoid NSAIDs such as Advil (ibuprofen) and Aleve (naproxen) to prevent further damage to your kidneys.We will check your kidney function again today Related to Chronic kidney disease, stage 3a Your blood pressure is well controlled today.Continue your current medications.We will check routine labs today.Please call the office with any issues, questions, or concerns prior to your next appointment.Follow up again in 6 months Related to Hypertensive chronic kidney disease with stage 1 through stage 4 chronic kidney disease, or unspecified chronic kidney disease Weight monitoring Related to Bod y mass index (BMI) 19 or less, adult Disease process Dietary management e ducation, guidance, and counseling Related to Body mass index (BMI) 19 or less, adult Your head CT was neg ative. This was most likely related to the Macrobid. I added this to the allergy list. Related to Acute nonintractable headache, unspecified headache type Your blood pressure is well controlled today.Continue your current medications. Related to Hypertensive chronic kidney disease with stage 1 through stage 4 chronic kidney disease, or unspecified chronic kidney disease Be sure to stay well hydrated and avoid NSAIDs such as Advil (ibuprofen) and Aleve (naproxen) to prevent further damage to your kidneys. Related to Chronic kidney disease, stage 3a urine was normal.kelly e the complete course of the cephalexin.I added macrobid to your allergies.Call with any questions or concernsNo labs todayReturn to scheduled Related to Urinary tract infection, site not specified Disease process This is due to your vitamin D deficiency.We will check your parathyroid level again today Related to Secondary hyperparathyroidism, not elsewhere classified Continue your vitami n D supplementation.Vitamin D level will be checked again today Related to Vitamin D deficiency, unspecified We will recheck urin e today.Please call us with any urinary concerns Related to Urinary tract infection, site not specified You reports swallowi ng is better.If this worsens, be sure to scheduled your swallow study with Dr. Huston Related to Diaphragmatic hernia without obstruction or gangrene Sodium level will be rechecked R elated to Hypo-osmolality and hyponatremia I'm happy to hear we are eating more.Weight is slightly down.We will continue to monitor this Related to Unspecified protein-calorie malnutrition This is hardening of the arteries of your heart found on previous imaging.Blood pressure is well controlled.Continue your medications as prescribed Related to Atherosclerosis of aorta Be sure to stay well hydrated and avoid NSAIDs such as Advil (ibuprofen) and Aleve (naproxen) to prevent further damage to your kidneys.We will check your kidney function again today Related to Chronic kidney disease, stage 3a Your blood pressure is well controlled today.Continue your current medications.We will check routine labs today.Please call the office with any issues, questions, or concerns prior to your next appointment.Follow up again in 6 months Related to Hypertensive chronic kidney disease with stage 1 through stage 4 chronic kidney disease, or unspecified chronic kidney disease Disease process Dietary management e ducation, guidance, and counseling Related to Body mass index (BMI) 19 or less, adult levels will be check edcontinue with your vitamin D Related to Secondary hyperparathyroidism, not elsewhere classified repeat urine checked today - no signs of infection Related to Urinary tract infection, site not specified call GI and schedule your barium swallow Related to Diaphragmatic hernia without obstruction or gangrene keep up the good work with your diet Related to Unspecified protein-calorie malnutrition your blood pressure is stableno changes recommended Related to Hypertensive chronic kidney disease with stage 1 through stage 4 chronic kidney disease, or unspecified chronic kidney disease This is hardening of the arteries of your heart found on previous imagingno chest pain. good bp control Related to Atherosclerosis of aorta we monitor this thro ugh labs. Make sure you are drinking plenty of water.avoid NSAIDs like ibuprofen, advil, aleve, motrin. tylenol is ok to take. Related to Chronic kidney disease, stage 3a Disease process Continue with the Ca lmoseptine. We discussed the importance of enough protein in the diet and staying off of the area to relieve pressure. Please call if this worsens Related to Impaired skin integrity Your symptoms have i mproved.We can see how your urine is doing at your upcoming appointment in June. Please call if you develop any symptoms prior to that. Related to History of UTI Please continue with the Ensure supplement and your current dietary changes as this seems to be helping with your symptoms and your weight is stable.Call with any questions or concernsNo labs todayReturn as scheduled with Dr. Hartmann in June.Prevnar 20 today Related to Unspecified protein-calorie malnutrition Okay to continue off of the sodium tablet.Your sodium level was low but stable. We will continue to monitor. Related to Hypo-osmolality and hyponatremia Please follow-up corina Huston and call to schedule the barium swallow test.Please call if you develop any symptoms. Continue on current medication and okay to take the ondansetron as needed for nausea. Related to Diaphragmatic hernia without obstruction or gangrene Your kidney function is stable. No changes Related to Chronic kidney disease, stage 3a Blood pressure is co ntrolled on current medication. No changes Related to Hypertensive chronic kidney disease with stage 1 through stage 4 chronic kidney disease, or unspecified chronic kidney disease Disease process keep scheduled appoi ntment with Dr. Hustoncall me after the appointmenttry the protein smoothies Related to Diaphragmatic hernia without obstruction or gangrene OK to stay off of th e sodium chloride tabletlevels will be checked Related to Hypo-osmolality and hyponatremia I will send the urine for cultur e Related to Leukocytes in urine your blood pressure is stableno changes recommended Related to Hypertensive chronic kidney disease with stage 1 through stage 4 chronic kidney disease, or unspecified chronic kidney disease we monitor this thro [facility] labs. Make sure you are drinking plenty of water.avoid NSAIDs like ibuprofen, advil, aleve, motrin. tylenol is ok to take. Related to Chronic kidney disease, stage 3a Disease process We will check potass ium levels today. You are currently taking 20 mEq once a day and not twice a day.Call with any questions or concernsCBC and BMP todayReturn as scheduled Related to Hypokalemia We discussed the imp ortance of getting enough protein and calories in the diet. try to find the supplement that does not cause any problems.We discussed ways to add more calories to the diet like eating nuts, drinking juices, adding butter, eating sherbet, etc. Related to Unspecified protein-calorie malnutrition We will check kidney function today. It has remained stable. Related to Chronic kidney disease, stage 3a Blood pressure is co ntrolled on current medication. Related to Hypertensive chronic kidney disease with stage 1 through stage 4 chronic kidney disease, or unspecified chronic kidney disease Please call back wit h your choice of gastrointestinal doctor you would like to see either Dr. Huston at [facility] or Dr. Miner with [facility].Continue with the pantoprazole.Continue using Zofran as needed.Please call us with any worsening symptoms. Related to Diaphragmatic hernia without obstruction or gangrene We will check your s odium levels today. It looked stable while in the hospital but we will check today. Related to Hypo-osmolality and hyponatremia Disease process Weight is down sligh tly. Continue with the Ensure.We discussed the importance of increasing calories through using butter, whole milk, cream, peanut butter etc.Call with any questions or concernsNo labs today u rine dip todayReturn as scheduled Related to Unspecified protein-calorie malnutrition You completed antibi otics in the hospital through IV as well as oral cefdinir.We will make sure there is no sign of infection today. Related to History of UTI Continue on the pant oprazole.I am glad that you are feeling better.Hiatal hernia handout given. Please call if your symptoms worsen Related to Diaphragmatic hernia without obstruction or gangrene We continue to monit or this through labs and it was stable during her hospitalization. Related to Chronic kidney disease, stage 3a Continue on the potassium Relate d to Hypokalemia Your blood pressure is well controlled on current medication. No changes Related to Hypertensive chronic kidney disease with stage 1 through stage 4 chronic kidney disease, or unspecified chronic kidney disease Fall Risk Prevention Urinary Incontinence Disease process sodium levels will be monitored Related to Hypo-osmolality and hyponatremia continue with the bennie ost and ensure in addition to the meals you are eating Related to Unspecified protein-calorie malnutrition this is related to y our underlying kidney diseasewe will continue to monitor your labs Related to Secondary hyperparathyroidism, not elsewhere classified continue with the supplement Rel ated to Vitamin D deficiency, unspecified continue with the current medica tion Related to Spinal stenosis, lumbar region without neurogenic claudication we discussed foods t o help with the hernia but also foods that could aggravate your underlying GERD Related to Diaphragmatic hernia without obstruction or gangrene we monitor this thro ugh labs. Make sure you are drinking plenty of water.avoid NSAIDs like ibuprofen, advil, aleve, motrin. tylenol is ok to take. Related to Chronic kidney disease, stage 3a Your blood pressure is stableno changes in medication Related to Hypertensive chronic kidney disease with stage 1 through stage 4 chronic kidney disease, or unspecified chronic kidney disease Disease process see abovereturn to aida garibay in 3-4 monthscall me with questions or concernslabs checked Related to Unspecified protein-calorie malnutrition try to limit the dic lofenac and take Tylenol instead Related to Spinal stenosis, lumbar region without neurogenic claudication Weight is down to 10 5 pounds.Continue eating small, frequent meals.We will recheck your weight again at your next visit.Please call if your hernia symptoms start acting up Related to Diaphragmatic hernia without obstruction or gangrene we monitor this thro ugh labs. Make sure you are drinking plenty of water.avoid NSAIDs like ibuprofen, advil, aleve, motrin. tylenol is ok to take. Related to Chronic kidney disease, stage 3a your blood pressure is stable on your current medication.no changes recommended Related to Hypertensive chronic kidney disease with stage 1 through stage 4 chronic kidney disease, or unspecified chronic kidney disease We will recheck your sodium level again today and call tomorrow with your results Related to Hyponatremia Weight monitoring Related to Bod y mass index (BMI) 20.0-20.9, adult Dietary management e ducation, guidance, and counseling Related to Body mass index (BMI) 20.0-20.9, adult Disease process try to limit the dic lofenac and take Tylenol instead Related to Spinal stenosis, lumbar region without neurogenic claudication will check levels to dayreturn to me as scheduled Related to Vitamin D deficiency, unspecified continue vitamin D Related to Se condary hyperparathyroidism we monitor this thro [facility] labs. Make sure you are drinking plenty of water.avoid NSAIDs like ibuprofen, advil, aleve, motrin. tylenol is ok to take. Related to Chronic kidney disease, stage 3a We will recheck your sodium level again today and call tomorrow with your results Related to Hyponatremia see abovereturn to m e in 3-4 monthscall me with questions or concernslabs checked Related to Unspecified protein-calorie malnutrition your blood pressure is stable on your current medicationno changes recommended Related to Hypertensive chronic kidney disease with stage 1 through stage 4 chronic kidney disease, or unspecified chronic kidney disease Weight is down to 10 7 poundsKeep up the good work and continue with your nutritional supplements.Call if issues worsen prior to your next visit.try to increase to 2 protein drinks per dayFollow up again in 3-4 months Related to Diaphragmatic hernia without obstruction or gangrene Urinary Incontinence Disease process Fall Risk Prevention We will recheck your sodium level again today and call tomorrow with your results Related to Hyponatremia Weight is up 4 pound s since your last visit.Keep up the good work and continue with your nutritional supplements.Call if issues worsen prior to your next visit.Follow up again in 3 months Related to Diaphragmatic hernia without obstruction or gangrene Weight monitoring Related to Bod y mass index (BMI) 21.0-21.9, adult Disease process Dietary management e ducation, guidance, and counseling Related to Body mass index (BMI) 21.0-21.9, adult see abovereturn to m e in 1 monthcall me with questions or concernslabs checked Related to Unspecified protein-calorie malnutrition try to limit the dic lofenac and take Tylenol instead Related to Spinal stenosis, lumbar region without neurogenic claudication smaller meals throug hout the daytry drinking 1-2 BOOST or ENSURE per dayreturn to me in 1 monthif you are still losing weight then we can discuss referring you to GI Related to Diaphragmatic hernia without obstruction or gangrene we monitor this thro [facility] labs. Make sure you are drinking plenty of water.avoid NSAIDs like ibuprofen, advil, aleve, motrin. tylenol is ok to take. Related to Chronic kidney disease, stage 3a your blood pressure is stable on your current medicationno changes recommended Related to Hypertensive chronic kidney disease with stage 1 through stage 4 chronic kidney disease, or unspecified chronic kidney disease Disease process Drink plenty of wate r. Avoid NSAIDs (Advil, Aleve, Naproxen, Motrin, ibuprofen).Will monitor with labwork. Related to Chronic kidney disease, stage 3a you report pain is o k without the second diclofenacalternate ice/heat to the siteyou can use over the counter creams like icy/hot, blue Imu or biofreeze or 4% lidocaine pain patchTylenol 1000mg every 8 hours as needed Related to Spinal stenosis, lumbar region without neurogenic claudication Continue with bland foodsavoid chocolate, soda, fatty, greasy, spicy, fried, acidic foods/beveragestry to drink Boost or Ensure dailycall if symptoms worsenrecheck potassium level todayreturn in 1 month to reassess the current plan Related to Diaphragmatic hernia without obstruction or gangrene Blood pressure is at treatment goal on current medicationsoff dyazide, continue spironolactoneAvoid salty foods. Related to Hypertensive chronic kidney disease with stage 1 through stage 4 chronic kidney disease, or unspecified chronic kidney disease Weight monitoring Related to Bod y mass index (BMI) 22.0-22.9, adult Dietary management e ducation, guidance, and counseling Related to Body mass index (BMI) 22.0-22.9, adult Disease process Disease process found on the CT scan in the ERwe discussed limiting greasy, spicy, acidic foods and carbonated beverages do not lay down after eatingcall if you develop nausea, vomiting, abdominal pain Related to Hiatal hernia recheck urine todayc ompleted antibioticswatch for return of symptoms Related to Urinary tract infection without hematuria, site unspecified continue vitamin D Related to Se condary hyperparathyroidism Blood pressure is at treatment goal on current medicationsContinue current medicationsAvoid salty foods.labs todayreturn in 4-6 months for an office visitcall with questions/concerns AVOID CROWDS - REMAIN 6 FEET APART FROM PEOPLE. WEAR A MASK. AVOID TOUCHING YOUR FACE. AVOID UNNECESSARY TRAVEL. WASH HANDS OFTEN. CALL WITH QUESTIONS/CONCERNS Related to Hypertensive chronic kidney disease with stage 1 through stage 4 chronic kidney disease, or unspecified chronic kidney disease we will check your l evelscontinue supplement Related to Hypokalemia Dietary management e ducation, guidance, and counseling Related to Body mass index (BMI) 23.0-23.9, adult Weight monitoring Related to Bod y mass index (BMI) 23.0-23.9, adult Disease process follow with Dr. Mathews Related to Spinal stenosis, lumbar region without neurogenic claudication Blood pressure is at treatment goal on current medicationsContinue current medicationsAvoid salty foods.you can return in July for labs and flu shot (CBC, CMP, TSH, Lipids, Vitamin D)return in 3-4 months for an office visitcall with questions/concerns AVOID CROWDS - REMAIN 6 FEET APART FROM PEOPLE. WEAR A MASK. AVOID TOUCHING YOUR FACE. AVOID UNNECESSARY TRAVEL. WASH HANDS OFTEN. CALL WITH QUESTIONS/CONCERNS Related to Hypertensive chronic kidney disease with stage 1 through stage 4 chronic kidney disease, or unspecified chronic kidney disease continue the supplement Related to Vitamin D deficiency, unspecified we monitor this thro [facility] labsavoid NSAIDs like advil, aleve, motrin, ibuprofen tylenol is ok to take Related to Chronic kidney disease, stage 3 (moderate) Disease process follow with Dr. 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 Related to Hypokalemia we monitor this thro ugh labsavoid NSAIDs like advil, aleve, motrin, ibuprofen, tylenol is ok to takeyou can continue to take the diclofenac and we will monitor Related to CKD (chronic kidney disease), stage III BP stable Related to Hyper tensive renal disease, stage 1-4 or unspecified chronic kidney disease Continue to see Dr. Mathews Related to SS, lumbar region will check levels today Related to Vitamin D deficiency, unspecified Disease process Dietary management e ducation, guidance, and counseling Related to Body mass index (BMI) 23.0-23.9, adult Disease process you continue to take diclofenac as prescribed by Dr. Garber have talked about how these medications can cause issues with kidneyswe will continue to monitor thisCall with any questions or concernscbc, cmp, intact pth, vitamin d, dipstick todayreturn in 6 months Related to Spinal stenosis of lumbar region, unspecified whether neurogenic claudication present blood pressure is excellent Rela mimi to Hypertensive renal disease, stage 1-4 or unspecified chronic kidney disease I will check the hor bruna todaythis got better with vitamin d Related to Secondary hyperparathyroidism will check levels today Related to Vitamin D deficiency, unspecified Zaditor and alakristy a re both allergy eye drops you can pickler helper that is over the counterother oral allergy medications are zyrtec, claritin, and deborah.make sure you do not buy the ones with a d Related to Itchy, watery, and red eye monitored through Related to CKD (chronic kidney disease), stage III Disease process Urinary Incontinence Fall Risk Prevention Assessments Type Assessment Date No Information Patient Care Teams Name Effective Dates (start - stop) Status Members No Information
--- OUTSIDE RECORDS SUMMARY | 2025-07-13 03:59 | XMS_ITS | Continuity of Care Document ---
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 Name Role Phone Nisha Hartmann DO Unavailable [...] Office Lab A ROUTINE VENIPUNCTURE [place] OFFICE [id number] BODY MASS INDEX DOCD SYST BP >= 140 MM HG6 IT DIAST BP < 80 MM HG ROUTINE VENIPUNCTURE [place] URINALYSIS, DIPSTICK (UA) - Office Lab J COMPREHEN METABOLIC PANEL [facility] URINALYSIS, DIPSTICK (UA) - Office Lab O CBC, INC PLATELETS AND DIFFERENTIAL COMPREHEN METABOLIC PANEL CMP 4 PARATHYROID HORMONE (PTH) THYROID STIMULATION HORMONE(TSH) 2023 VITAMIN D, 25-HYDROXY Pt inelig neg scrn depres Admin influenza virus vac FLU VACC PRSV FREE INC ANTIG OFFICE [id number]-[id number]-[id number] BODY MASS INDEX DOCD SYST BP GE 130 - 139MM HG DIAST BP < 80 MM HG URINALYSIS, DIPSTICK (UA) - Office Lab O ROUTINE VENIPUNCTURE IL DSCHRG MED/CURRENT MED MERGE OFFICE [id number] BODY MASS INDEX DOCD SYST BP GE 130 - 139MM HG DIAST BP < 80 MM HG URINALYSIS, DIPSTICK (UA) - Office Lab M ar-04-2024 CBC, INC PLATELETS AND DIFFERENTIAL COMPREHEN METABOLIC PANEL CMP PARATHYROID HORMONE (PTH) THYROID STIMULATION HORMONE(TSH) 2023 VITAMIN D, 25-HYDROXY Pt inelig neg scrn depres URINALYSIS, DIPSTICK (UA) - Office Lab F ROUTINE VENIPUNCTURE IL OFFICE [id number] BODY MASS INDEX DOCD SYST BP LT 130 MM HG DIAST BP < 80 MM HG URINALYSIS, DIPSTICK (UA) - Office Lab J Kept Appointment No Charge Encounter Nov URINALYSIS, DIPSTICK (UA) - Office Lab D URINALYSIS, DIPSTICK (UA) - Office Lab N OFFICE [id number]-[id number] CBC, INC PLATELETS AND DIFFERENTIAL COMPREHEN METABOLIC PANEL CMP CREATINE KINASE, TOTAL (CPK,CK) 023 LIPID PANEL PARATHYROID HORMONE (PTH) THYROID STIMULATION HORMONE(TSH) 2022 VITAMIN D, 25-HYDROXY URINALYSIS, DIPSTICK (UA) - Office Lab A ROUTINE VENIPUNCTURE IL OFFICE [id number]-CRR-[id number] BODY MASS INDEX DOCD SYST BP GE 130 - 139MM HG DIAST BP < 80 MM HG DSCHRG MED/CURRENT MED MERGE PNEUMOVAX ADM MEDICARE Pneumococcal Conjugate Vaccine (PCV20) A OFFICE POSAX-ZGZ-[id number] BODY MASS INDEX DOCD SYST BP GE 130 - 139MM HG DIAST BP < 80 MM HG COMPREHEN METABOLIC PANEL CMP 3 THYROID STIMULATION HORMONE(TSH) 2022 URINALYSIS, DIPSTICK (UA) - Office Lab J ROUTINE VENIPUNCTURE IL OFFICE [id number]-ZUN-PRGVQURU BODY MASS INDEX DOCD SYST BP GE [...] VITAMIN D, 25-HYDROXY ROUTINE VENIPUNCTURE IL OFFICE [id number]-[id number] BODY MASS INDEX DOCD SYST BP GE 130 - 139MM HG DIAST BP < 80 MM HG Pt inelig neg scrn depres CBC, INC PLATELETS AND DIFFERENTIAL COMPREHEN METABOLIC PANEL CMP 2 THYROID STIMULATION HORMONE(TSH) 2021 URINALYSIS, DIPSTICK (UA) - Office Lab A ROUTINE VENIPUNCTURE IL OFFICE GUKRG-EXK-[id number] BODY MASS INDEX DOCD SYST BP GE [...] - Office Lab M ROUTINE VENIPUNCTURE OFFICE [id number]-[id number]-[id number] BODY MASS INDEX DOCD SYST BP GE 130 - 139MM HG DIAST BP < 80 MM HG Pt inelig neg scrn depres BASIC METABOLIC PANEL(BMP) ROUTINE VENIPUNCTURE IL OFFICE ZDCWN-LWT-[id number] BODY MASS INDEX DOCD SYST BP GE 130 - 139MM HG DIAST BP < 80 MM HG Pt inelig neg scrn depres CBC, INC PLATELETS AND DIFFERENTIAL COMPREHEN METABOLIC PANEL [facility] THYROID STIMULATION HORMONE(TSH) 2020 ROUTINE VENIPUNCTURE OFFICE [id number]-EHH-[id number] BODY MASS INDEX DOCD SYST BP GE 130 - 139MM HG DIAST BP < 80 MM HG BASIC METABOLIC PANEL(BMP) ROUTINE VENIPUNCTURE IL COMPREHEN METABOLIC PANEL [facility] ROUTINE VENIPUNCTURE IL OFFICE KVOCS-SQN-SVFFPEBT BODY MASS INDEX DOCD SYST BP LT 130 MM HG DIAST BP < 80 MM HG Admin influenza virus vac FLU VACC PRSV FREE INC ANTIG URINALYSIS, DIPSTICK (UA) - Office Lab S OFFICE UVTMI-GEZ-BPLJHORJ Pt inelig neg scrn depres CBC, INC PLATELETS AND DIFFERENTIAL COMPREHEN METABOLIC PANEL [facility] LIPID PANEL THYROID STIMULATION HORMONE(TSH) 2020 URINALYSIS, REFLEX (UA) VITAMIN D, 25-HYDROXY ROUTINE VENIPUNCTURE IL OFFICE HWZRP-DVI-ESBQWAGV BODY MASS INDEX DOCD SYST BP GE 130 - 139MM HG DIAST BP < 80 MM HG FREE T4 (FT4) OFFICE JZUYA-FNK-JQCLZZCS Pt inelig neg scrn depres CBC, INC PLATELETS AND DIFFERENTIAL COMPREHEN METABOLIC PANEL [facility] 9 THYROID STIMULATION HORMONE(TSH) 2018 ROUTINE VENIPUNCTURE IL OFFICE UQKXS-ZSM-[id number] BODY MASS INDEX DOCD SYST BP GE 130 - 139MM HG DIAST BP < 80 MM HG FALL PLAN OF CARE DOC'D URINE INCON PLAN DOC'D PRES/ABSN URINE INCON ASSESS CBC, INC PLATELETS AND DIFFERENTIAL COMPREHEN METABOLIC PANEL [facility] 9 LIPID PANEL THYROID STIMULATION HORMONE(TSH) 2018 VITAMIN D, 25-HYDROXY URINALYSIS, DIPSTICK (UA) - Office Lab J ROUTINE VENIPUNCTURE IL OFFICE UJEKZ-PHS-BRBEXTZV BODY MASS INDEX DOCD SYST BP GE 130 - 139MM HG DIAST BP < 80 MM HG Advance Directives Directive Yes / No Effective Date File Name No Information Encounters Encounter Description Practice Location Reason(s) For Visit Diagnoses Date Provider Providers Copied on Encounter [facility], [address], [place], [place], [address] , [place] tel: [phone] [facility] [place] No Information 0 5 Shahbaz Cameron. [address] [place] [address], [id number], [place]. tel:[phone] [facility], [address], [place], [place], [address] , [place] tel: [phone] [facility] No Information 5 Shahbaz Cameron. [address] [place] [address], [id number], [place]. tel:[phone] [facility], [address], [place], [place], [address] , [place] tel: [phone] [facility] No Information 5 Shahbaz Cameron. [address] [place] [address], [id number], [place]. tel:[phone] [facility], [address], [place], [place], [address] , [place] tel: [phone] [facility] No Information 5 Estelle Madera. [address] [place] [address], [id number], . tel:[phone] Referring Provider: Rupa Posada, [address] [place] [address], [address] . tel:[phone] OFFICE UYCFI-FMW-DKN SPARKLE [facility], [address], [place], [place], [address] , [place] tel: [phone] [facility] Kanchan 6 mo appt (chief complaint)Chr onic Conditions (chief complaint) Hypertensive chronic kidney disease with stage 1 through stage 4 chronic kidney disease, or unspecified chronic kidney diseaseChroni c kidney disease, stage 3aHypo-osmola lity and hyponatremiaA therosclerosi s of aortaSecondar y hyperparathyr oidism, not elsewhere classifiedVit agosto D deficiency, unspecified 5 Posadasheree Goode. [address] [place] [address], [id number], [place]. tel:[phone] Referring Provider: Nisha King, [address] [place] [address], [address] . tel:[phone] [facility], [address], [place], [place], [address] , [place] tel: [phone] [facility] HypokalemiaCh ronic kidney disease, stage 3aDysuriaLeuk ocytes in urine 5 Shahbaz Cameron. [address] [place] [address], [id number], [place]. tel:[phone] Referring Provider: Nisha King, [address] [place] [address], [address] . tel:[phone] [facility], [address], [place], [place], [address] , [place] tel: [phone] [facility] No Information 5 Estelle Madera. [address] [address], [place], [place], [id number], . [phone] Referring Provider: Nisha King, [address] [place] [address], [address] . tel:[phone] [facility], [address], [place], [address] , [place] tel: [phone] [facility] No Information 4 Shahbaz Nisha. [address] [place] [address], [id number], [place]. tel:[phone] [facility], [address], [place], [place], [address] , tel: [phone] [facility] No Information 4 Shahbazrebecca Cameron. [address] [place] [address], [id number], [place]. tel:[phone] [facility], [address], [place], [address] , [place] tel: [phone] [facility] DysuriaLeukoc ytes in urine 4 Shahbaz Cameron. [address] [place] [address], [id number], [place]. tel:[phone] Referring Provider: Nisha King, [address] [place] [address], [address] . tel:[phone] [facility], [address], [place], [address] , [place] tel: [phone] [facility] No Information 4 Estellemarianne Kurtzn. [address], [id number], . tel:[phone] Referring Provider: Rupa Posada, [address] [place] [address], [address] . tel:[phone] OFFICE MWHDU-RLY-MFJ SPARKLE [facility], [address], [place], [place], [address] , [place] tel: [phone] [facility] 6 month check up (chief complaint)Chr onic [...] gangreneHypok alemiaRight thigh pain 4 Swetha Goode. [address] [place] [address], [id number], [place]. tel:[phone] Referring Provider: Nisha King, [address] [place] [address], [address] . tel:[phone] [facility], [address], [place], [place], [address] , [place] tel: [phone] [facility] No Information 4 Shahbaz Cameron. [address] [place] [address], [id number], [place]. tel:[phone] OFFICE OEESO-MTP-GQB ANDED [facility], [address], [place], [place], [address] , [place] tel: [phone] [facility] ER f/u (chief complaint) Hypertensive chronic kidney disease with stage 1 through stage 4 chronic kidney disease, or unspecified chronic kidney diseaseChroni c kidney disease, stage 3aUrinary tract infection, site not specifiedAcut e nonintractabl e headache, unspecified headache type 4 Arely Licea. [address] [place] [address], [address], [place]. tel:[phone] Referring Provider: Nisha King, [address] [place] [address], [address] . tel:[phone] [facility], [address], [place], [place], [address] , [place] tel: [phone] [facility] No Information 4 Estelle Madera. [address] [facility] [address], [place], [place], [address], [place]. tel:[phone] Referring Provider: Rupa Posada, [address] [place] [address], [address] . tel:[phone] OFFICE AGHMU-YDM-ITR SPARKLE [facility], [address], [place], [place], [address] , tel: [phone] [facility] Kanchan Chronic Conditions (chief complaint)chr onic conditions [...] classifiedLeu kocytes in urine 4 Swetha Goode. [address] [place] [address], [id number], [place]. tel:[phone] Referring Provider: Nisha King, [address] [place] [address], [address] . tel:[phone] [facility], [address], [place], [place], [address] , tel: [phone] [facility] DysuriaLeukoc ytes in urine 4 Shahbaz Cameron. [address] [place] [address], [id number], [place]. [phone] Referring Provider: Nisha King, [address] [place] [address], [address] . tel:[phone] [facility], [address], [place], [place], [address] , tel: [phone] [facility] Kanchan Burning with urinationLeuk ocytes in urineIncrease d urinary frequency 4 Shahbaz Cameron. [address] [place] [address], [id number], [place]. tel:[phone] Referring Provider: Nisha King, [address] [place] [address], [address] . tel:[phone] [facility], [address], [place], [place], [address] , [place] tel: [phone] [facility] DysuriaLeukoc ytes in urine 3 Shahbaz Cameron. [address] [place] [address], [id number], [place]. tel:[phone] Referring Provider: Nisha King, [address] [place] [address], [address] . tel:[phone] OFFICE KNQVZ-HHA-QKR IMAL [facility], [address], [place], [place], [address] , [place] tel: [phone] [facility] acute visit (chief complaint) DysuriaOther abnormal findings in urine 3 Shahbza Cameron. [address] [place] [address], [id number], [place]. tel:[phone] Referring Provider: Nisha King, [address] [place] [address], [address] . tel:[phone] [facility], [address], [place], [place], [address] , [place] tel: [phone] [facility] No Information 3 Estelle Madera. [address] [place] [address], [id number], [place]. tel:[phone] Referring Provider: Nisha King, [address] [place] [address], [address] . tel:[phone] OFFICE YXRHN-VWJ-YPA SPARKLE [facility], [address], [place], [place], [address] , [place] tel: [phone] [facility] 6 month appt (chief complaint)Oth er (chief [...] classifiedAth erosclerosis of aorta 3 Shahbaz Cameron. [address] [place] [address], [id number], [place]. tel:[phone] Referring Provider: Nisha King, [address] [place] [address], [address] . tel:[phone] OFFICE TJDTH-NAF-ACQ SPARKLE [facility], [address], [place], [place], [address] , [place] tel: [phone] [facility] Er F/u (chief complaint)Chr onic Conditions (chief complaint) Hypertensive chronic kidney disease with stage 1 through stage 4 chronic kidney disease, or unspecified chronic kidney diseaseChroni c kidney disease, stage 3aHypo-osmola lity and hyponatremiaD iaphragmatic hernia without obstruction or gangreneHisto ry of UTIImpaired skin integrityUnsp ecified protein-calor ie malnutrition 3 Arely Licea. [address] [place] [address], [address], [place]. tel:[phone] Referring Provider: Nisha King, [address] [place] [address], [address] . tel:[phone] [facility], [address], [place], [place], [address] , [place] tel:[phone] [facility] No Information 3 Estelle Madera. [address] [facility], [address], [id number], [place]. tel:[phone] Referring Provider: Nisha King, [address] [place] [address], [address] . tel:[phone] OFFICE OGNPN-WSS-NDC SPARKLE [facility], [address], [place], [place], [address] , tel: [phone] [facility] Patient encounter (chief complaint)Chr onic Conditions (chief complaint) Leukocytes in urineHyperten sive chronic kidney disease with stage 1 through stage 4 chronic kidney disease, or unspecified chronic kidney diseaseChroni c kidney disease, stage 3aHypo-osmola lity and hyponatremiaD iaphragmatic hernia without obstruction or gangreneDysur ia 3 Shahbaz Cameron. [address] [place] [address], [id number], [place]. tel:[phone] Referring Provider: Nisha King, [address] [place] [address], [address] . tel:[phone] [facility], [address], [place], [place], [address] , tel: [phone] [facility] No Information 3 Estelle Madera. [address] [place] [address], [id number], . tel:[phone] Referring Provider: Vinayak Mcgee, [address] [place] [address], [address]. tel:[phone] Transitional Care- First 7 Days Of Discharge [facility], [address], [place], [place], [address] , tel: [phone] [facility] ER f/u (chief complaint) Diaphragmatic hernia without obstruction or gangreneHyper tensive chronic kidney disease with stage 1 through stage 4 chronic kidney disease, or unspecified chronic kidney diseaseChroni c kidney disease, stage 3aHypo-osmola lity and hyponatremiaU nspecified protein-calor ie malnutritionH ypokalemia 3 Arely Licea. [address] [place] [address], [address], [place]. tel:[phone] Referring Provider: Nisha King, [address] [place] [address], [address] . tel:[phone] Transitional Care- First 7 Days Of Discharge [facility], [address], [place], [place], [address] , [place] tel: [phone] [facility] Follow-Up (chief complaint)Chr onic Conditions (chief complaint) Hypertensive chronic kidney disease with stage 1 through stage 4 chronic kidney disease, or unspecified chronic kidney diseaseChroni c kidney disease, stage 3aDiaphragmat ic hernia without obstruction or gangreneHypok alemiaHistory of UTIUnspecifie d protein-calor ie malnutrition 3 Arely Licea. [address] [place] [address], [address], . tel:[phone] Referring Provider: Nisha King, [address] [place] [address], [address] . tel:[phone] [facility], [address], [place], [place], [address] , [place] tel: [phone] [facility] No Information 3 Estelle Madera. [address] [place] [address], [id number], . tel:[phone] Referring Provider: Nisha King, [address] [place] [address], [address] . tel:[phone] OFFICE IXFIV-IUB-QJA SPARKLE [facility], [address], [place], [address] , [place] tel: [phone] [facility] 5 month appt (chief complaint)Oth er (chief [...] ie malnutritionH ypo-osmolalit y and hyponatremia 3 Shahbaz Cameron. [address] [place] [address], [id number], . tel:[phone] Referring Provider: Nisha King, [address] [place] [address], [address] . tel:[phone] OFFICE LNXVI-CXK-QPQ [facility], [address], [place], [place], [address] , tel: [phone] [facility] Chronic Conditions (chief complaint)oth er (chief complaint) Body mass index [BMI] 20.0-20.9, adultHyponatr emiaUnspecifi ed protein-calor ie malnutritionS asa stenosis, lumbar region without neurogenic claudicationH ypertensive chronic kidney disease with stage 1 through stage 4 chronic kidney disease, or unspecified chronic kidney diseaseChroni c kidney disease, stage 3aDiaphragmat ic hernia without obstruction or gangreneLeuko cytes in urine 2 wSetha Goode. [address] [place] [address], [id number], . tel:[phone] Referring Provider: Nisha King, [address] [place] [address], [address] . tel:[phone] [facility], [address], [place], [place], [address] , [place] tel: [phone] [facility] Leukocytes in urine 2 Shahbaz Cameron. [address] [place] [address], [id number], [place]. tel:[phone] Referring Provider: Nisha King, [address] [place] [address], [address] . tel:[phone] OFFICE SHMXN-CMB-SPV [facility], [address], [place], [place], [address] , tel: [phone] [facility] Diaphragmatic hernia without obstruction or [...] unspecifiedLe ukocytes in urine 2 Shahbaz Cameron. [address] [place] [address], [id number], [place]. tel:[phone] Referring Provider: Nisha King, [address] [place] [address], [address] . tel:[phone] [facility], [address], [place], [place], [address] , [phone] [facility] No Information Shahbaz Cameron. [address] [place] [address], [id number], . tel:[phone] OFFICE TNVVB-MZI-AMS [facility], [address], [place], [place], [address] , tel:[phone] [facility] Chronic Conditions (chief complaint) Body mass index [BMI] 21.0-21.9, adultDiaphrag matic hernia without obstruction or gangreneHypon atremia 1 Swetha Goode. [address] [place] [address], [id number], [place]. tel:[phone] Referring Provider: Nisha King, [address] [place] [address], [address] . tel:[phone] [facility] [address], [place], [place], [address] , tel: [phone] [facility] Chronic Conditions (chief complaint) Hypertensive chronic kidney disease with stage 1 through stage 4 chronic kidney disease, or unspecified chronic kidney diseaseChroni c kidney disease, stage 3aDiaphragmat ic hernia without obstruction or gangreneSpina l stenosis, lumbar region without neurogenic claudicationU nspecified protein-calor ie malnutrition 1 Shahbaz Cameron. [address] [place] [address], [id number], . tel:[phone] Referring Provider: Nisha King, [address] [place] [address], [address] . tel:[phone] [facility], [address], [place], [place], [address] , tel: [phone] [facility] Hypertensive chronic kidney disease with stage 1 through stage 4 chronic kidney disease, or unspecified chronic kidney diseaseEssent ial (primary) hypertension 1 Shahbaz Cameron. [address] [place] [address], [id number], [place]. tel:[phone] Referring Provider: Nisha King, [address] [place] [address], [address] . tel:[phone] OFFICE KFIUY-MRH-CGF ANDED [facility], [address], [place], [place], [address] , tel: [phone] [facility] Chronic Conditions (chief complaint) Diaphragmatic hernia without obstruction or gangreneBody mass index (BMI) 22.0-22.9, adultSpinal stenosis, lumbar region without neurogenic claudicationH ypertensive chronic kidney disease with stage 1 through stage 4 chronic kidney disease, or unspecified chronic kidney diseaseChroni c kidney disease, stage 3a Jul- 1 Magaly Kelley. [address] [place] [address], [id number], . tel:[phone] Referring Provider: Nisha King, [address] [place] [address], [address] . tel:[phone] OFFICE SHSVN-PNY-MHB [facility], [address], [place], [place], [address] , tel: [phone] [facility] Chronic Conditions (chief complaint) Hypertensive chronic kidney disease with stage 1 through stage 4 chronic kidney disease, or unspecified chronic kidney diseaseChroni c kidney disease, stage 3aHypokalemia Spinal stenosis, lumbar region without neurogenic claudicationD iaphragmatic hernia without obstruction or gangreneUrina ry tract infection, site not specifiedLeuk ocytes in urine Sep-0 1 Shahbaz Cameron. [address] [place] [address], [id number], . tel:[phone] Referring Provider: Nisha King, [address] [place] [address], [address] . tel:[phone] OFFICE HQFEI-IUN-MCC [facility], [address], [place], [place], [address] , tel: [phone] [facility] Chronic Conditions (chief complaint)ER f/u (chief complaint) Body mass index (BMI) 23.0-23.9, adultHyperten sive chronic kidney disease with stage 1 through stage 4 chronic kidney disease, or unspecified chronic kidney diseaseHypoka lemiaSecondar y hyperparathyr oidismHiatal herniaUrinary tract infection without hematuria, site unspecified Mar- 1 Magaly Kelley. [address] [place] [address], [id number], . tel:[phone] Referring Provider: Nisha King, [address] [place] [address], [address] . tel:[phone] OFFICE XXKTN-CLZ-IOK [facility], [address], [place], [place], [address] , tel: [phone] [facility] Chronic Conditions (chief complaint)oth er (chief complaint) Hypertensive chronic kidney disease with stage 1 through stage 4 chronic kidney disease, or unspecified chronic kidney diseaseSpinal stenosis, lumbar region without neurogenic claudicationC hronic kidney disease, stage 3 (moderate)Vit agosto D deficiency, unspecified 0 Magaly Kelley. [address] [place] [address], [id number], . tel:[phone] Referring Provider: Nisha King, [address] [place] [address], [address] . tel:[phone] OFFICE ZAOYL-CZC-DTI [facility], [address], [place], [place], [address] , [place] tel: [phone] [facility] 6 month follow up (chief complaint)Chr onic Conditions (chief complaint) Hypertensive chronic kidney disease with stage 1 through stage 4 chronic kidney disease, or unspecified chronic kidney diseaseChroni c kidney disease, stage 3 (moderate)Spi nal stenosis, lumbar region without neurogenic claudication [facility]. [address] [place] [address], [address], . tel:[phone] Referring Provider: Nisha King, [address] [place] [address], [address] . tel:[phone] OFFICE AWNEO-NFA-ACX [facility], [address], [place], [place], [address] , [place] tel: [phone] [facility] Internal Medicine Chronic Conditions (chief complaint) Body mass index (BMI) 23.0-23.9, adultHyperten sive renal disease, stage 1-4 or unspecified chronic kidney diseaseCKD (chronic kidney disease), stage IIIVitamin D deficiency, unspecifiedSS , lumbar regionHypokal emia 9 [facility]. [address] [place] [address], [address], . [phone] Referring Provider: Nisha King, [address] [place] [address], [address] . tel:[phone] [facility], [address], [place], [place], [address] , tel: [phone] [facility] Internal Medicine Encounter for general adult medical examination without abnormal findings 8 Swetha Goode. [address] [place] [address], [id number], . tel:[phone] Referring Provider: Nisha King, [address] [place] [address], [address] . tel:[phone] [facility], [address], [place], [place], [address] , [place] tel: [phone] [facility] Nail fungus 8 Shahbaz Cameron. [address] [place] [address], [id number], [place]. tel:[phone] [facility], [address], [place], [place], [address] , tel: [phone] [facility] Internal Medicine chronic conditions (chief complaint) Hypertensive renal disease, stage 1-4 or unspecified chronic kidney diseaseCKD (chronic kidney disease), stage IIIVitamin D deficiency, unspecifiedSe condary hyperparathyr oidismItchy, watery, and red eyeSpinal stenosis of lumbar region, unspecified whether neurogenic claudication present 8 Arelyyolanda Presleyvolodymyr. [address] [place] [address], [address], . tel:[phone] Referring Provider: Nisha King, [address] [place] [address], [address] . tel:[phone] [facility], [address], [place], [place], [address] , [place] tel: [phone] [facility] Body mass index (BMI) 22.0-22.9, adultVitamin D deficiency, unspecifiedHy pertensive renal disease, stage 1-4 or unspecified chronic kidney diseaseCKD (chronic kidney disease), stage IIISecondary hyperparathyr oidismSpinal stenosis of lumbar region [facility]. [address] [place] [address], [place], [address], [place]. tel:[phone] Referring Provider: Nisha King, [address] [place] [address], [place], [address] . tel:[phone] [facility], [address], [place], [place], [address] , tel: [phone] [facility] Essential (primary) hypertension Shahbaz Cameron. [address] [place] [address], [place], [place], [address], [place]. tel:[phone] Referring Provider: Nisha King, [address] [place] [address], [place], [address] . tel:[phone] [facility], [address], [place], [place], [address] , tel: [phone] [facility] Diarrhea, unspecified typeInfection of nailbed of toe of left footRecent urinary tract infectionEsse ntial (primary) hypertension [facility]. [address] [place] [address], [place], [address], [place]. tel: [phone] Referring Provider: Nisha King, [address] [place] [address], [place], [address] . tel: [facility], [address], [place], [place], [address] , tel: [phone] [facility] Diarrhea, unspecified type 6 Shahbaz Cameron. [address] [place] [address], [place], [place], [address], [place]. tel:[phone] Referring Provider: Nisha King, [address] [place] [address], [place], [address] . tel:[phone] [facility], [address], [place], [place], [address] , tel: [phone] [facility] Essential (primary) hypertensionV itamin D deficiency, unspecifiedSp inal stenosis of lumbar region 6 Shahbaz Cameron. [address] [place] [address], [id number], [place]. tel:[phone] Referring Provider: Nisha King, [address] [place] [address], [place], [address] . tel: [facility], [address], [place], [address] , [place] tel: [phone] [facility] Serum calcium elevated 8 5 Shahbaz Cameron. [address] [place] [address], [id number], [place]. tel: [phone] [facility], [address], [place], [place], [address] , tel: [phone] [facility] Encounter for immunizationV itamin D deficiency, unspecifiedEs sential (primary) hypertension 5 Shahbaz Cameron. [address] [place] [address], [id number], [place]. tel:[phone] Referring Provider: Nisha King, [address] [place] [address], [place], [address] . tel:[phone] [facility], [address], [place], [place], [address] , tel: [phone] [facility] HTN (hypertension )Vitamin D deficiencyALL ERGIC RHINITIS NOS 5 Shahbaz Cameron. [address] [place] [address], [id number], [place]. tel:[phone] Referring Provider: Nisha King, [address] [place] [address], [address] . tel:[phone] [facility], [address], [place], [place], [address] , tel: [phone] [facility] No Information 4 Shahbaz Cameron. [address] [place] [address], [id number], . tel:[phone] Referring Provider: Nisha King, [address] [place] [address], [address] . tel:[phone] [facility], [address], [place], [place], [address] , tel: [phone] [facility] BENIGN HYPERTENSIOND ERMATITIS NOSBilateral lower extremity edema May- 5-201 4 Shahbaz Cameron. [address] [place] [address], [id number], . tel:[phone] Referring Provider: Nisha King, [address] [place] [address], [address] . tel:[phone] [facility], [address], [place], [place], [address] , tel:[phone] [facility] Dysuria Dec-2 6-201 3 Shahbaz Cameron. [address] [place] [address], [id number], . tel:[phone] Referring Provider: Nisha King, [address] [place] [address], [address] . tel:[phone] [facility], [address], [place], [place], [address] , tel:[phone] [facility] Conjunctiviti sHypertension Constipation, unspecified Dec-0 3-201 3 Shahbaz Cameron. [address] [place] [address], [id number], [place]. tel:[phone] Referring Provider: Nisha King, [address] [place] [address], [address] . tel:[phone] [facility], [address], [place], [place], [address] , tel: [phone] [facility] Uncontrolled hypertensionO steoarthrosis , generalized, involving unspecified site Nov-0 8-201 3 Shahbaz Cameron. [address] [place] [address], [id number], . tel:[phone] Referring Provider: Nisha King, [address] [place] [address], [address] . tel:[phone] [facility], [address], [place], [place], [address] , tel: [phone] [facility] No Information 6 3 Shahbaz Cameron. [address] [place] [address], [id number], [place]. tel: [phone] [facility], [address], [place], [place], [address] , tel: [phone] [facility] Diarrhea 3 Shahbaz Cameron. [address] [place] [address], [id number], . tel:[phone] Referring Provider: Nisha King, [address] [place] [address], [address] . tel:[phone] [facility], [address], [place], [place], [address] , [place] tel: [phone] [facility] Spinal stenosis of lumbar region at multiple levelLeft foot dropHypertens ionOsteoarthr osis, generalized, involving unspecified siteUnspecifi ed vitamin d deficiency Feb-2 3201 3 Shahbaz Cameron. [address] [place] [address], [id number], [place]. tel:[phone] Referring Provider: Nisha King, [address] [place] [address], [address] . tel:[phone] [facility], [address], [place], [place], [address] , tel: [phone] [facility] BENIGN HYPERTENSIONG ENERAL OSTEOARTHROSI SVitamin d deficiencyPos therpetic neuralgiaOste oporosis, unspecified 2 Shahbaz Cameron. [address] [facility], [place], [place], [address], [place]. tel:[phone] Referring Provider: Fabio Sexton, [address] [facility] [address], [place], [address] . tel:[phone] [facility], [address], [place], [place], [address] , [place] tel: [phone] [facility] HYPERTENSION NOSBACKACHE NOSOsteoporos is, unspecified 2 Trame Fabio. [address], [place], [place], [address]. tel: [phone] Referring Provider: Fabio Sexton, [address] [facility] [address], [place], [address] . tel:[phone] [facility], [address], [place], [place], [address] , [place] tel: [phone] [facility] BACKACHE NOSHYPERTENSI ON NOSBONE & CARTILAGE DIS NOSLONG-TERM USE MEDS NEC 1 Trame Baker. [address] [facility] [address], [place], [place], [address]. tel: [phone] [facility], [address], [place], [place], [address] , [place] tel: [phone] [facility] ACUTE SINUSITIS NOSGENERAL OSTEOARTHROSI S 0 Trame Fabio. [address] [facility] [address], [place], [place], [address]. tel: [phone] [facility], [address], [place], [place], [address] , [place] tel: [phone] [facility] IRRITABLE BOWEL SYNDROME Jan- 3-201 0 Trame Fabio. [address] [facility] [address], [place], [place], [address]. tel: [phone] [facility], [address], [place], [place], [address] , [place] tel:[phone] [facility] VACCIN FOR INFLUENZA 0 1-200 9 Trame Baker. [address], [place], [place], [address]. tel: [phone] [facility], [address], [place], [place], [address] , [place] tel: [phone] [facility] SYEDA HY KID W CR KID I-IVCHR KIDNEY DIS STAGE III 2 4-200 9 Trame Fabio. [address], [place], [place], [address]. tel: [phone] [facility], [address], [place], [place], [address] , [place] tel: [phone] [facility] No Information 1-200 9 Plainfielde Baker. [address] [facility] [address], [place], [place], [address]. tel: [phone] [facility], [address], [place], [place], [address] , [place] tel: [phone] [facility] DYSURIA 2 3-200 9 [facility]. [address] [facility] [address], [place], [place], [address]. tel: [phone] [facility], [address], [place], [place], [address] , [place] tel: [phone] [facility] BENIGN HYPERTENSION 6-200 9 Plainfielde Baker. [address] [facility] [address], [place], [place], [address]. tel: [phone] [facility], [address], [place], [place], [address] , [place] tel: [phone] [facility] URIN TRACT INFECTION NOS Dec-0 2-200 8 Trame Fabio. [address], [place], [place], [address]. tel: [phone] [facility], [address], [place], [place], [address] , [place] tel:[phone] [facility] H ZOSTER NERV SYST NEC Nov-2 0-200 8 Trame Baker. [address] [facility] [address], [place], [place], [address]. tel: [phone] [facility], [address], [place], [place], [address] , [place] tel: [phone] [facility] HERPES ZOSTER NOS Aug- 7-200 8 Trame Fabio. [address] [facility] [address], [place], [place], [address]. tel: [phone] [facility], [address], [place], [place], [address] , [place] tel: [phone] [facility] SYNCOPE AND COLLAPSE May- 5-200 7 Trame Fabio. [address] [facility] [address], [place], [place], [address]. tel: [phone] [facility], [address], [place], [place], [address] , [place] tel:[phone] [facility] HYPOTHYROIDIS M NOSGENERAL OSTEOARTHROSI S Nov-2 8-200 6 Trame Fabio. [address] [facility] [address], [place], [place], [address]. tel: [phone] [facility], [address], [place], [place], [address] , [place] tel: [phone] [facility] EDEMA Sep-2 3-200 5 Trame Baker. [address] [facility] [address], [place], [place], [address]. tel: [phone] [facility], [address], [place], [place], [address] , [place] tel:[phone] [facility] SPINAL STENOSIS-LUMB AR Benjy-2 2-200 5 Trame Fabio. [address] [facility] [address], [place], [place], [address]. tel: [phone] [facility], [address], [place], [place], [address] , [place] tel: [phone] [facility] CONSTIPATION NOS May-1 8-200 5 Trame Fabio. [address] [facility], [address], [place], [place], [address]. tel: [phone] [facility], [address], [place], [place], [address] , [place] tel: [phone] [facility] ABDMNAL PAIN GENERALIZED May-0 6-200 4 Con[facility]. [address] [facility], [place], [address], [place]. [facility], [address], [place], [place], [address] , [place] tel: [phone] [facility] DIARRHEA May-0 6-200 4 Trame Baker. [address] [facility], [address], [place], [place], [address]. tel: [phone] [facility], [address], [place], [place], [address] , [place] tel: [phone] [facility] VACCIN FOR INFLUENZAND VAC STRPTCS PNEUMNI B Oct-1 4-200 3 Trame Baker. [address] [facility], [address], [place], [place], [address]. tel: [phone] [facility], [address], [place], [address] , [place] tel: [phone] [facility] ALLERGIC RHINITIS NOS Apr-1 5-200 3 Trame Fabio. [address] [facility], [address], [place], [place], [address]. tel: [phone] [facility], [address], [place], [place], [address] , [place] tel:[phone] [facility] DERMATITIS NOS Sep-2 5-200 1 Trame Baker. [address] [facility] [address], [place], [place], [address]. tel: [phone] [facility], [address], [place], [place], [address] , [place] tel: [phone] [facility] SCREEN MAL NEOP-RECTUM 6-200 0 Conversion Doctor. [address] [facility], [place], [address], [place]. [facility], [address], [place], [place], [address] , tel: [phone] [facility] ENLARGEMENT LYMPH NODES 6200 0 Tramlani Mccarthy. [address] [facility], [address], [place], [place], [address]. tel:[phone] Family History Family Member Type Diagnosis Age [...] Fluzone administered Source: New Imm unization Record 65309 - Influenza administered Source: So urce Unspecified 70701 - Influenza administered Source: So urce Unspecified 47338 - Influenza administered Source: So urce Unspecified 24819 - Influenza administered Source: So urce Unspecified 26756 - Influenza administered Source: So urce Unspecified 08637 - Influenza administered Source: So urce Unspecified 02557 - Pneumococcal_PPV23 administered S ource: Source Unspecified 96539 - Influenza administered Source: So urce Unspecified 34449 - Influenza administered Source: So urce Unspecified 52063 - Influenza administered Source: So urce Unspecified 68893 - Influenza administered Source: So urce Unspecified Payers Payer name Insurance type Covered democrat ID Authoriza tion(s) [place] [id number] [place] [id number] [place] [id number] [place] [id number] [place] [id number] [place] [id number] [place] [id number] [place] [id number] [place] [id number] [place] [id number] [place] [id number] [place] [id number] Social History Type Description Quantity Date Captured [...] Referral Referred To: Amos Huston MD [address] [place], [id number] Ordered: Referrals: Gastroenterology. Amos Huston MD. Evaluation/diagnostic/treatment [...] an emergency room follow-up. She presented to [facility] on December with headache and abd discomfort [...] Patient is with daughter Josefina.She went to [facility] on June 12 with nausea and vomiting. [...] under the care of JETT Benites in [place] who recommended she have a barium swallow. [...] an emergency room follow-up. She went to [facility] on March 20 with chief complaint of [...] referred to GI Dr. Aries Huston in [place]. We had mentioned having her see Dr. Miner with [facility]. She would like to think about [...] daughter for hospital follow-up. She presented to [facility] emergency room on February 19 with nausea [...] to take. Chronic Conditions *See Chronic Conditions [facility] Chronic Conditions *See Chronic Conditions [facility] other Leukocytes were present on urinalysis today.Patient denies urinary symptoms. Other Recent vaccinati ons:pt denies TD/Tdap, ShingrixQuestions:No questions or concerns Diaphragmatic hernia without obstruction or gangrene Weight loss since last OV: 6.8 lbspt compliant w/ nutritional supplements Chronic Conditions *See Chronic Conditions [facility] Chronic Conditions *See Chronic Conditions [facility] Chronic Conditions *See Chronic Conditions [facility] Chronic Conditions *See Chronic Conditions [facility] Chronic Conditions *See Chronic Conditions [facility] Chronic Conditions *See Chronic Conditions [facility] Chronic Conditions ER f/u pt presented for [...] states the prescription has . We discussed hvwj-qps-ufdeuba remedies for her to try. Functional Status [...] chronic kidney disease we monitor this thro [facility] labs. Make sure you are drinking plenty [...] like to see either Dr. Huston at [facility] or Dr. Miner with [facility].Continue with the pantoprazole.Continue using Zofran as needed.Please [...] Se condary hyperparathyroidism we monitor this thro [facility] labs. Make sure you are drinking plenty [...] obstruction or gangrene we monitor this thro [facility] labs. Make sure you are drinking plenty [...] D deficiency, unspecified we monitor this thro [facility] labsavoid NSAIDs like advil, aleve, motrin, ibuprofen [...] re both allergy eye drops you can cotton picking machine operator that is over the counterother oral allergy [...]
--- NOTE | ~2025-07-21 | XR_ITS ---
EXAMINATION: XR wrist RT min 3V DATE: 07/21/2025 11:27 INDICATION: Wrist pain TECHNIQUE:4 images of the right wrist were obtained. COMPARISON: none FINDINGS: Bones appear osteopenic. Severe degenerative change in the first carpometacarpal joint. 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 Moderate joint space narrowing in the MCP joints and interphalangeal joint of the right thumb. Moderate joint space narrowing in the first metacarpophalangeal joint. No fracture. No dislocation. Soft tissue swelling about the right wrist. IMPRESSION: 1. No fracture. 2. Degenerative change in the right wrist as detailed above. If symptoms persist or worsen, consider a short-term follow-up study or additional imaging for further assessment. Reviewed, dictated and finalized at location Q. IMPRESSION: 1. No fracture. 2. Degenerative change in the right wrist as detailed above. If symptoms persist or worsen, consider a short-term follow-up study or additio nal imaging for further assessment.
--- NOTE | ~2025-07-21 | XR_ITS ---
EXAMINATION: XR hand RT min 3V DATE: 07/21/2025 11:27 INDICATION: Pain TECHNIQUE: 3 images of the right hand were obtained. COMPARISON: None. FINDINGS: Bones appear osteopenic. Severe degenerative change in the first carpometacarpal joint. 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 Moderate joint space narrowing in the MCP joints and interphalangeal joint of the right thumb. Moderate joint space narrowing in the first metacarpophalangeal joint. No fracture. No dislocation. Soft tissue swelling about the right wrist. Moderate joint space narrowing in the PIP and DIP joints of the second through fifth digits. IMPRESSION: 1. No fracture. 2. Degenerative change in the right hand as detailed above. If symptoms persist or worsen, consider a short-term follow-up study or additional imaging for further assessment. Reviewed, dictated and finalized at location Q. IMPRESSION: 1. No fracture. 2. Degenerative change in the right hand as detailed above. If symptoms persist or worsen, consider a short-term follow-up study or additio nal imaging for further assessment.
--- OUTSIDE RECORDS SUMMARY | 2025-07-21 09:15 | XMS_ITS | Clinical Summary ---
Author Organization [facility] Address [address] [place] [address] Care Team Providers Care Teletypesetter Name Role Phone Nisha Hartmann DO Primary [...] COVID-19 Vaccine ( - 2023-2 5 season) 2025 Meningococcal B Vaccine Aged Out No l onger eligible based on patient's age to complete this topic Meningococcal Vaccine Aged Out No chito carrie eligible based on patient's age to complete this topic RSV Immunizations Under 20 Months Aged Out No longer eligible based on patient's age to complete this topic Care Teams Teletypesetter Relationship Specialty Start Date End Date Nisha Hartmann DO [address] [place] [address] PCP - General 10/23/16
[2025-07-21 09:30] VITALS: BP 147/54; PULSE 72; RESP 16; TEMP 36.6; O2SAT 100
[2025-07-21 11:35] VITALS: BP 138/65; PULSE 64; RESP 16; TEMP 36.4; O2SAT 99
--- OUTSIDE RECORDS SUMMARY | 2025-07-21 12:39 | XMS_ITS | Clinical Summary ---
Author Organization [facility] Address [address] [place] [address] Care Team Providers Care Manufacturing Engineering Intern Name Role Phone Nisha Hartmann DO Primary [...] age to complete this topic Care Teams Manufacturing Engineering Intern Relationship Specialty Start Date End Date Nisha Hartmann DO [address] [place] [address] PCP - General 10/23/16
--- NOTE | 2025-07-21 12:56 | ED.GENADULT ---
HPI - General Adult General Chief complaint: Extremity Injury, Upper Stated complaint: R WRIST PAIN Time Seen by Provider: 07/21/25 11:32 History of Present Illness HPI narrative: 81-year-old female presents to the emergency department for evaluation of worsening chronic right wrist pain. Patient does have a history of arthritis. Patient does not take anything for pain control at home. Patient states that she woke up this morning and was having pain in the right wrist that is worsened with movement. Patient denies any falls or injuries. patient also does complain of arthritic pain in her neck. Related Data Home Medications ?Medication ?Instructions ?Recorded ?Confirmed ?Last Taken ?Type amlodipine 10 mg tablet 10 mg PO DAILY 02/19/23 04/30/23 Unknown History diclofenac sodium 75 mg 75 mg PO DAILY 02/19/23 04/30/23 Unknown History tablet,delayed release ergocalciferol (vitamin D2) 1,250 1,250 mcg PO WEEKLY 02/19/23 04/30/23 Unknown History mcg (50,000 unit) capsule potassium chloride 10 mEq 10 meq PO DAILY 02/19/23 04/30/23 Unknown History capsule,extended release spironolactone 50 mg tablet 50 mg PO HS 02/19/23 04/30/23 Unknown History C 250 mg-E 137.5 mg-zinc 12.5 1 tablet PO BID 04/30/23 04/30/23 Unknown History by-[id number] capsule ([place] Advanced AREDS2) Allergies Allergy/AdvReac Type Severity Reaction Status Date / Time codeine Allergy Unknown Unknown Verified 07/21/25 08:48 Penicillins Allergy Unknown RASH Verified 07/21/25 08:48 Sulfa (Sulfonamide Allergy Unknown Unknown Verified 07/21/25 08:48 Antibiotics) Review of Systems Review of Systems: All systems reviewed & are unremarkable except as noted in HPI and below PMFSH Past Medical History Medical History Hiatal hernia Hypertension Hypothyroidism Spinal stenosis Surgical History Surgical History H/O breast biopsy History of tubal ligation Family History Family History Mother Cancer of kidney Father Cancer of kidney Social History 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 Smoking status: Never smoker Alcohol intake: never Substance use: never Lack of Transportation: No Lack of Food: Never True Current Housing: I Have Housing Concerned About Future Housing: No Difficulty Paying Gas/Electric Bills: No Difficulty Paying for Meds: No Currently Unemployed: No Education: High School Diploma/GED Difficulty w/ Childcare or Family Care: No Gender identity (if verbalized by the patient): Female Spiritual care concerns: No Exam Narrative: APPEARANCE: Well appearing, no pain, no distress, well-nourished. HEAD: normocephalic, atraumatic. EYES: PERRLA/EOMI, conjunctivae clear. NOSE: Normal no drainage EARS:TMS clear with good light reflex. THROAT: Pharynx clear, no exudate. NECK: Supple. No adenopathy, no masses. RESPIRATORY: Airway patent, respirations nonlabored. Clear to auscultation bilaterally, no rales, rhonchi, wheezing. CARDIOVASCULAR: Regular rate and rhythm without murmurs rubs or gallops. ABDOMINAL: Soft, nontender, nondistended, normal bowel sounds MUSCULOSKELETAL: normal range of motion of right wrist and right hand but does have some intermittent pain. No tenderness to palpation no deformity. NEURO: neurovascularly intact SKIN: No evidence of cellulitis Course Vital Signs Vital signs: Vital Signs Temperature 97.9 F 07/21/25 09:30 Pulse Rate 72 07/21/25 09:30 Respiratory Rate 16 07/21/25 09:30 Blood Pressure 147/54 H 07/21/25 09:30 Pulse Oximetry 100 07/21/25 09:30 Oxygen Delivery Room Air 07/21/25 09:30 Temperature 97.7 F 07/21/25 13:21 Pulse Rate 66 07/21/25 13:21 Respiratory Rate 15 07/21/25 13:21 Blood Pressure 122/62 07/21/25 13:21 Pulse Oximetry 99 07/21/25 13:21 Oxygen Delivery Room Air 07/21/25 09:30 Medical Decision Making MDM Narrative Medical decision making narrative: 89-year-old female present to the emergency department for evaluation for right wrist and hand pain. Patient had no hand or wrist pain to palpation but does have some pain with range of motion. Patient has not been taking anything for pain control at home. I do suspect patient has worsening arthritic symptoms and patient would benefit from Tylenol. Patient was provided Howie wrap for comfort and discharged home with instructions for wrist splint and Howie wrap for comfort along with Tylenol. patient and family were comfortable with the plan for discharge and close follow-up. All questions concerns were addressed. Differential Diagnosis Differential Diagnosis: hand fracture, wrist fracture, carpal tunnel syndrome, cellulitis, contusion, arthritis Vital Signs Vital Signs: Vital Signs Temperature 97.9 F 07/21/25 09:30 Pulse Rate 72 07/21/25 09:30 Respiratory Rate 16 07/21/25 09:30 Blood Pressure 147/54 H 07/21/25 09:30 Pulse Oximetry 100 07/21/25 09:30 Oxygen Delivery Room Air 07/21/25 09:30 Temperature 97.7 F 07/21/25 13:21 Pulse Rate 66 07/21/25 13:21 Respiratory Rate 15 07/21/25 13:21 Blood Pressure 122/62 07/21/25 13:21 Pulse Oximetry 99 07/21/25 13:21 Oxygen Delivery Room Air 07/21/25 09:30 Imaging Data Radiologist's impression: Impressions Hand X-Ray 07/21/25 11:29 IMPRESSION: 1. No fracture. 2. Degenerative change in the right hand as detailed above. If symptoms persist or worsen, consider a short-term follow-up study or additional imaging for further assessment. Wrist X-Ray 07/21/25 11:29 IMPRESSION: 1. No fracture. 2. Degenerative change in the right wrist as detailed above. If symptoms persist or worsen, consider a short-term follow-up study or additional imaging for further assessment. Discharge Plan Discharge Clinical Impression: Arthritis, Pain, hand, Acute wrist pain Patient Disposition: Home Condition: Stable Instructions: Antibiotic Form, Wrist Sprain (ED), Arthritis (ED) Additional Instructions: Tylenol for pain control. Wrist brace or Howie wrap for wrist support as needed. Have close follow-up with your primary care physician. Patient Language: Stateless Prescriptions: No Action [place] [facility] AREDS2 250-137.5-12.5 mg capsule 1 tablet PO BID Rx Instructions: administer with AM and PM meals ondansetron 4 mg tablet,disintegrating 4 mg PO Q8H PRN (Reason: nausea and vomiting) Qty: 20 0RF cephalexin 500 mg capsule 500 mg PO Q12H Qty: 14 0RF ondansetron 4 mg tablet,disintegrating 4 mg PO Q6H PRN (Reason: nausea and vomiting) Qty: 10 0RF famotidine 20 mg tablet 20 mg PO DAILY Qty: 30 0RF alum-mag hydroxide-simeth [Maalox Advanced] 200-200-20 mg/5 mL suspension 10 ml PO QID PRN (Reason: dyspepsia) Qty: 200 0RF Rx Instructions: administer between meals and at bedtime ondansetron 4 mg tablet,disintegrating 4 mg PO Q8H PRN (Reason: nausea and vomiting) Qty: 20 0RF amlodipine 10 mg tablet 10 mg PO DAILY diclofenac sodium 75 mg tablet,delayed release (DR/EC) 75 mg PO DAILY ergocalciferol (vitamin D2) 1,250 mcg (50,000 unit) capsule 1,250 mcg PO WEEKLY spironolactone 50 mg tablet 50 mg PO HS potassium chloride 10 mEq capsule, extended release 10 meq PO DAILY pantoprazole [Protonix] [address] for susp in packet 40 mg PO BID Qty: 60 0RF Follow-up/Referrals: Des,Nisha Almonte DO [Primary Care Provider, Unknown]
[2025-07-21 13:21] VITALS: BP 122/62; PULSE 66; RESP 15; TEMP 36.5; O2SAT 99
== END 2025-07-21 13:22 | disposition home or self-care (01) ==
PROVIDERS: Emergency Provider Emergency Medicine; PCP Internal Medicine
DX: M25.531 Pain in right wrist (principal); M79.641 Pain in right hand; M19.90 Unspecified osteoarthritis, unspecified site; I10 Essential (primary) hypertension; E03.9 Hypothyroidism, unspecified; M11.241 Other chondrocalcinosis, right hand
CPT/HCPCS: 73110; 73130; 99283